=== PATIENT | female | born 1950 | race Caucasian/White ===

== ENCOUNTER 2020-12-03 18:26 | Inpatient (IN) | payer BC, MEDICARE ==
[~2020-12-03] VITALS: Ht 165.1 cm; Wt 59.7 kg
[2020-12-03 18:57] LABS: BASO # 0.1 x10^3/uL (0.0-0.2); BASO % 1 % (0-3); EOS # 0.1 x10^3/uL (0.0-0.7); EOS % 1 % (0-3); HEMATOCRIT 42.8 % (36.0-47.0); HEMOGLOBIN 14.3 g/dL (12.0-15.5); LYMPH # 0.9 x10^3/uL (1.0-4.8); LYMPH % 12 % (24-48); MEAN CORPUSCULAR HEMOGLOBIN 30 pg (25-35); MEAN CORPUSCULAR HGB CONC 34 g/dL (31-37); MEAN CORPUSCULAR VOLUME 90 fL (79-100); MONO # 0.7 x10^3/uL (0.0-1.1); MONO % 9 % (0-9); NEUT # 5.9 x10^3uL (1.8-7.7); NEUT % 77 % (31-73); PLATELET COUNT 284 x10^3/uL (140-400); RED BLOOD COUNT 4.77 x10^6/uL (3.50-5.40); RED CELL DISTRIBUTION WIDTH 14.2 % (11.5-14.5); WHITE BLOOD COUNT 7.7 x10^3/uL (4.0-11.0)
--- NOTE | 2020-12-03 19:12 | PHYS DOC ---
Past History Past Medical History: Anxiety, Dementia, Other Additional Past Medical Histor: Mood disorder, insomnia, incontinence Past Medical History Limited secondary to dementia Past Surgical History: No Surgical History Past Surgical History Limited secondary to dementia Alcohol Use: None Drug Use: None Social History Limited secondary to dementia General Adult EDM: Chief Complaint: MEDICAL CLEARANCE HPI: HPI: 70-year-old female with past medical history of dementia presents via EMS after being accepted to [facility]. Patient reportedly has been more aggressive lately including hitting. Patient presenting to the ER for medical clearance. Patient denies any pain at this time. Denies any complaint. Hx of COVID vaccinatio and appears patient may have previously had COVID-19. History of present illness limited secondary to dementia. Review of Systems: Review of Systems: Review of systems limited secondary to dementia Physical Exam: PE: Constitutional: Well developed, well nourished, no acute distress, non-toxic appearance HENT: Normocephalic, atraumatic Eyes: PERRL, EOMI, conjunctiva normal, no discharge, no nystagmus Neck: Normal range of motion, no tenderness, supple Lungs & Thorax: No respiratory distress, equal chest rise and fall Abdomen: Soft, no tenderness, no guarding/rebound tenderness/distention Skin: Warm, dry, no erythema, no rash Extremities: No tenderness, ROM intact, no edema Neurologic: Alert and oriented X name only, normal motor function, normal sensory function, no focal deficits noted Psychologic: Affect normal, judgment abnormal Current Patient Data: Vital Signs: Vital Signs Date Time Temp Pulse Resp B/P (MAP) Pulse Ox O2 Delivery O2 Flow Rate FiO2 12/03/20 18:30 98.3 83 112/63 (79) 98 EKG: EKG: @1851 NSR at 77bpm, NO ST elevation, QRS 80ms, QT/QTc 354/402ms Radiology/Procedures: Radiology/Procedures: [] Heart Score: C/O Chest Pain: N/A Course & Med Decision Making: Course & Med Decision Making Pertinent Lab studies reviewed. (See chart for details) Patient with past medical history of dementia presents via EMS for medical clearance for admission to [facility]. Physical exam unremarkable. Medical screening labs obtained. EKG stable. Of note: UA was not obtained. Alise NICOLE discussed lack of UA with Nadya NICOLE (charge) in [facility], who reports they will obtain UA on floor. Patient medically cleared for continuation for inpatient psychiatric admission to [facility] unit. Juan Disclaimer: Juan Disclaimer: This electronic medical record was generated, in whole or in part, using a voice recognition dictation system. Departure Departure: Impression: Primary Impression: Medical clearance for psychiatric admission Disposition: ADMITTED INPATIENT ([facility]) Condition: STABLE NIKI OSORIO DO Dec 03, 2020 19:12
[2020-12-03 19:28] LABS: ALBUMIN 3.5 g/dL (3.4-5.0); ALBUMIN/GLOBULIN RATIO 0.8 (1.0-1.7); CALCIUM 9.3 mg/dL (8.5-10.1); GFR 54.7; MAGNESIUM 2.7 mg/dL (1.8-2.4); POTASSIUM 3.8 mmol/L (3.5-5.1); TOTAL BILIRUBIN 0.3 mg/dL (0.2-1.0); TOTAL PROTEIN 7.8 g/dL (6.4-8.2)
--- NOTE | 2020-12-03 19:48 | EKG ---
[address] [address] Test Date: 2020-12-03 Test Time: 18:51:04 Pat Name: KEN ENRIQUEZ Department: Room: Gender: F Rn Transitional Care: : 1950 Requested By: NIKI OSORIO Order Number: [id number] Reading MD: Measurements Intervals [place] Rate: 77 P: 47 WI: 166 QRS: 0 QRSD: 80 T: 64 QT: 354 QTc: 402 Interpretive Statements SINUS RHYTHM LEFTWARD AXIS OTHERWISE NORMAL ECG RI6.02 No previous ECG available for comparison
[2020-12-03 20:41] LABS: VAL ACID 21 mcg/mL (50-100)
[2020-12-03] MEDS ORDERED: LORA10TA68 PO (20:57)
[2020-12-03] MEDS ORDERED: ASPI-889 PO (20:57)
[2020-12-03] MEDS ORDERED: ACET-1874 PO (20:57)
[2020-12-03] MEDS ORDERED: FLUV50TA2 PO (20:57)
[2020-12-03] MEDS ORDERED: MEMA10TA PO (20:57)
[2020-12-03] MEDS ORDERED: MULT-735 PO (20:57)
[2020-12-03] MEDS ORDERED: DONE10TA61 PO (20:57)
[2020-12-03] MEDS ORDERED: TRAZ-120 PO (20:57)
[2020-12-03] MEDS ORDERED: LORA-254 PO ×2 (20:57)
[2020-12-03] MEDS ORDERED: LACT1CAP70 PO (20:57)
[2020-12-03] MEDS ORDERED: MELA1TAB44 PO (20:57)
[2020-12-03] MEDS ORDERED: ERGO500090 PO (20:57)
[2020-12-03] MEDS ORDERED: DIVA125C2 PO (20:57)
--- NOTE | 2020-12-03 22:12 | PDOC ---
Exam Note: Papo Note: Please also refer to the separate dictated note~for this date of service dictated separately.~Patient seen individually. Discussed the patient with Nursing staff reviewed the chart.~Reviewed interim history and current functioning. Reviewed vital signs,~Labs/ Radiology~and current medications noted below. Continue current treatment with the changes noted in the dictated addendum note Assessment: Vital Signs/I&O: Vital Signs Date Time Temp Pulse Resp B/P (MAP) Pulse Ox O2 Delivery O2 Flow Rate FiO2 12/03/20 18:30 98.3 83 112/63 (79) 98 Labs: Laboratory Tests Test 12/03/20 18:36 12/03/20 20:23 White Blood Count 7.7 x10^3/uL (4.0-11.0) Red Blood Count 4.77 x10^6/uL (3.50-5.40) Hemoglobin 14.3 g/dL (12.0-15.5) Hematocrit 42.8 % (36.0-47.0) Mean Corpuscular Volume 90 fL (79-100) Mean Corpuscular Hemoglobin 30 pg (25-35) Mean Corpuscular Hemoglobin Concent 34 g/dL (31-37) Red Cell Distribution Width 14.2 % (11.5-14.5) Platelet Count 284 x10^3/uL (140-400) Neutrophils (%) (Auto) 77 % (31-73) H Lymphocytes (%) (Auto) 12 % (24-48) L Monocytes (%) (Auto) 9 % (0-9) Eosinophils (%) (Auto) 1 % (0-3) Basophils (%) (Auto) 1 % (0-3) Neutrophils # (Auto) 5.9 x10^3uL (1.8-7.7) Lymphocytes # (Auto) 0.9 x10^3/uL (1.0-4.8) L Monocytes # (Auto) 0.7 x10^3/uL (0.0-1.1) Eosinophils # (Auto) 0.1 x10^3/uL (0.0-0.7) Basophils # (Auto) 0.1 x10^3/uL (0.0-0.2) Sodium Level 143 mmol/L (136-145) Potassium Level 3.8 mmol/L (3.5-5.1) Chloride Level 106 mmol/L (98-107) Carbon Dioxide Level 25 mmol/L (21-32) Anion Gap 10 (6-14) Blood Urea Nitrogen 8 mg/dL (7-20) Creatinine 1.0 mg/dL (0.6-1.0) Estimated GFR (Cockcroft-Gault) 54.7 BUN/Creatinine Ratio 8 (6-20) Glucose Level 75 mg/dL (70-99) Calcium Level 9.3 mg/dL (8.5-10.1) Magnesium Level 2.7 mg/dL (1.8-2.4) H Total Bilirubin 0.3 mg/dL (0.2-1.0) Aspartate Amino Transferase (AST) 21 U/L (15-37) Alanine Aminotransferase (ALT) 24 U/L (14-59) Alkaline Phosphatase 153 U/L (46-116) H Creatine Kinase 205 U/L (26-192) H Creatine Kinase MB (Mass) 1.9 ng/mL (0.0-3.6) Creatine Kinase MB Relative Index 0.9 % (0-4) Troponin I Quantitative < 0.017 ng/mL (0-0.055) Total Protein 7.8 g/dL (6.4-8.2) Albumin 3.5 g/dL (3.4-5.0) Albumin/Globulin Ratio 0.8 (1.0-1.7) L Valproic Acid Level 21 mcg/mL (50-100) L Valproic Acid Last Dose Date 12/03/20 Valproic Acid Last Dose Time 0000 Current Medications: Meds: Laboratory Tests Test 12/03/20 18:36 12/03/20 20:23 White Blood Count 7.7 x10^3/uL Red Blood Count 4.77 x10^6/uL Hemoglobin 14.3 g/dL Hematocrit 42.8 % Mean Corpuscular Volume 90 fL Mean Corpuscular Hemoglobin 30 pg Mean Corpuscular Hemoglobin Concent 34 g/dL Red Cell Distribution Width 14.2 % Platelet Count 284 x10^3/uL Neutrophils (%) (Auto) 77 % Lymphocytes (%) (Auto) 12 % Monocytes (%) (Auto) 9 % Eosinophils (%) (Auto) 1 % Basophils (%) (Auto) 1 % Neutrophils # (Auto) 5.9 x10^3uL Lymphocytes # (Auto) 0.9 x10^3/uL Monocytes # (Auto) 0.7 x10^3/uL Eosinophils # (Auto) 0.1 x10^3/uL Basophils # (Auto) 0.1 x10^3/uL Sodium Level 143 mmol/L Potassium Level 3.8 mmol/L Chloride Level 106 mmol/L Carbon Dioxide Level 25 mmol/L Anion Gap 10 Blood Urea Nitrogen 8 mg/dL Creatinine 1.0 mg/dL Estimated GFR (Cockcroft-Gault) 54.7 BUN/Creatinine Ratio 8 Glucose Level 75 mg/dL Calcium Level 9.3 mg/dL Magnesium Level 2.7 mg/dL Total Bilirubin 0.3 mg/dL Aspartate Amino Transf (AST/SGOT) 21 U/L Alanine Aminotransferase (ALT/SGPT) 24 U/L Alkaline Phosphatase 153 U/L Creatine Kinase 205 U/L Creatine Kinase MB (Mass) 1.9 ng/mL Creatine Kinase MB Relative Index 0.9 % Troponin I Quantitative < 0.017 ng/mL Total Protein 7.8 g/dL Albumin 3.5 g/dL Albumin/Globulin Ratio 0.8 Valproic Acid (Depakene) Level 21 mcg/mL Valproic Acid Last Dose Date 12/03/20 Valproic Acid Last Dose Time 0000 I have reviewed the current psychotropics carefully including drug interactions. Risk benefit ratio favors no change other than as noted in my dictated progress note. 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
[2020-12-03] MEDS ORDERED: METHYL SALICYLATE/MENTHOL TOPICAL OINTMENT 57GM TUBE. TP PRN (22:15)
[2020-12-03] MEDS ORDERED: NON FORMULARY ITEM (Acetaminophen Er 650 MG) PO PRN (22:15)
[2020-12-03] MEDS ORDERED: MAGNESIUM HYDROXIDE 2,400 MG/30 ML ORAL.SUSP. PO PRN (22:15)
[2020-12-03] MEDS ORDERED: MAG HYDROX/AL HYDROX/SIMETH 30 ML ORAL.SUSP PO PRN (22:15)
[2020-12-03] MEDS ORDERED: LORazepam 0.5 MG TABLET PO PRN (22:30)
[2020-12-03 22:38] VITALS: BP 116/70
[2020-12-03 22:44] LABS: BILIRUBIN,URINE NEG (NEG); CLARITY,URINE HAZY; COLOR,URINE YELLOW; GLUCOSE,URINE NEG (NEG); NITRITE,URINE NEG (NEG); RBC,URINE OCC /HPF (0-2); UROBILINOGEN,URINE 0.2 mg/dL (0.2 mg/dL); WBC,URINE 20-40 /HPF (0-4)
[2020-12-03 22:45] LABS: BACTERIA,URINE FEW /HPF (0-FEW); SQUAMOUS EPITHELIAL CELL,UR OCC /LPF
[2020-12-03] MEDS ORDERED: CETIRIZINE HCL 10 MG TABLET PO PRN (22:45)
[2020-12-03] MEDS: LORazepam 0.5 MG TABLET PO SCH (22:53)
[2020-12-03] MEDS: traZODone 50 MG TABLET. PO SCH (22:53)
[2020-12-03] MEDS: DONEPEZIL HCL 10 MG TABLET PO SCH (22:54)
[2020-12-03] MEDS: MEMANTINE 10 MG TABLET. PO SCH (22:54)
[2020-12-03] MEDS: MELATONIN 3 MG TABLET PO SCH (22:54)
[2020-12-03] MEDS: DIVALPROEX 125 MG CAP.SPRINK PO SCH (22:54)
[2020-12-04 05:44] VITALS: BP 109/69
[2020-12-04] MEDS: ASPIRIN ENTERIC COATED 81 MG TABLET.DR. PO SCH (08:17)
[2020-12-04] MEDS: LACTOBACILLUS RHAMNOSUS GG 1 CAPSULE. PO SCH (08:17)
[2020-12-04] MEDS: DIVALPROEX 125 MG CAP.SPRINK PO SCH ×2 (08:17→19:53)
[2020-12-04] MEDS: MULTIVITAMIN with MINERAL TABLET. PO SCH (08:17)
[2020-12-04] MEDS: MEMANTINE 10 MG TABLET. PO SCH ×2 (08:17→19:53)
[2020-12-04] MEDS: LORazepam 0.5 MG TABLET PO SCH ×2 (08:17→19:53)
[2020-12-04] MEDS ORDERED: MEMANTINE 10 MG TABLET. PO SCH (09:00)
[2020-12-04 12:08] LABS: THYROXINE 7.9 ug/dL (4.5-12.0)
[2020-12-04 15:42] VITALS: BP 120/60
[2020-12-04 15:43] VITALS: BP 120/60
[2020-12-04] MEDS: traZODone 50 MG TABLET. PO SCH (19:53)
[2020-12-04] MEDS: DONEPEZIL HCL 10 MG TABLET PO SCH (19:53)
[2020-12-04] MEDS: MELATONIN 3 MG TABLET PO SCH (19:54)
[2020-12-04 20:07] LABS: THYROID STIM HORMONE (TSH) 0.952 uIU/mL (0.358-3.740)
--- NOTE | 2020-12-04 21:49 | CONS ---
DATE OF CONSULTATION: 12/04/2020 REASON FOR CONSULTATION: For medical management. HISTORY OF PRESENT ILLNESS: The patient is a 70-year-old female patient, resident at [facility], who was [facility] on account of being combative, hitting unprovoked. She has periods of agitation talks about children, restless, wandering, all this in a background of major neurocognitive disorder, vascular Alzheimer with delusion, depression, behavioral disorder, anxiety disorder and unspecified impulse control disorder. PAST MEDICAL HISTORY: Unremarkable. PAST PSYCHIATRIC HISTORY: Significant for dementia, mood disorder and anxiety with major depressive disorder. ALLERGIES: She has no known drug allergies. MEDICATIONS: She is currently on the following medications. She is on loratadine 10 mg once a day, Aricept 10 mg at bedtime, aspirin 81 mg once a day, acetaminophen 650 mg at bedtime, divalproex sodium 125 mg twice a day, fluvoxamine 75 mg p.o. daily, lorazepam 0.5 mg every 6 hours, lorazepam 0.5 mg twice a day scheduled, Namenda 10 mg twice a day, lactobacillus acidophilus 1 capsule once a day, vitamin D2 of 1250 mcg once a week. Multivitamin 1 tablet once a day and melatonin 4 mg at bedtime. FAMILY HISTORY: Noncontributory. SOCIAL HISTORY: She is a resident at [facility]. PHYSICAL EXAMINATION: GENERAL: On examining her, the patient looked well and was clearly in no apparent respiratory distress. No pallor, jaundice, or cyanosis. No thyromegaly. No jugular venous distention, no lower limb edema. VITAL SIGNS: Her heart rate was 88, blood pressure was 109/69, temperature 97.4, respiratory rate was 18 and oxygen saturation was 96% on room air. HEENT: As per ER physician, examination of the head, eyes, ears, nose, and throat - normocephalic, atraumatic. NECK: Supple. HEART: Normal first and second heart sounds, no gallop, murmur. CHEST: Clear to auscultation. No crepitation or rhonchi. ABDOMEN: Distended, soft, nontender. NEUROLOGIC: She is demented, but without any obvious lateralizing sign. All other cranial nerves intact. She moves extremities without difficulty. She ambulates without assistance or assistive devices. LABORATORY DATA: Showed a white cell count 7700, hemoglobin 14, hematocrit 42, MCV 90 and platelet count 284,000 with normal manual differential. Her D-dimer was 0.59 mg/dL. Her chemistry showed a serum sodium 143, potassium 3.8, chloride 106, bicarbonate 25, anion gap of 10, BUN 8, creatinine 1, estimated GFR was 54 mL per minute. Her glucose was 75, calcium was 9.3, magnesium 2.7. Total bilirubin, AST, ALT, alkaline phosphatase were normal. Total protein was 7.8, albumin was 3.5. Her total T4 and total T3 are both within normal range. Her urinalysis showed the urine was yellow, hazy with a pH of 6.5, specific gravity of 1.015. The urine was negative for protein, glucose, ketones, with trace of blood, negative for nitrite. There was large amount of leukocyte esterase, occasional rbc's, 20-40 wbc's, and very few bacteria. ASSESSMENT AND PLAN: In summary, this is a 70-year-old female patient, resident at [facility]. She was admitted on account of being combative, hitting unprovoked with periods of agitation, talks about children. She is restless and wandering, all this in a background of major neurocognitive disorder. Medically, she seemed to be overall stable. Her vital signs are all within acceptable range as well as her lab work except that she has large amount of leukocyte esterase and 20-40 wbc's, indicating that she probably has urinary tract infection. Her urine was sent for culture and sensitivity, the result of which is still pending at the time of this dictation. She is, however, stable hemodynamically and she is afebrile. I will definitely wait for the culture and sensitivity to start her on IV antibiotic and meanwhile, I will continue with all other medication. I will follow her lab work but still pending at the time of this dictation and make any necessary recommendation. Thank you, Dr. Camacho, for allowing me to participate in the care of this patient. CANDELARIO GARAY: Mei TID: [id number]
--- NOTE | 2020-12-04 22:04 | PDOC ---
Exam Note: Papo Note: Please also refer to the separate dictated note~for this date of service dictated separately.~Patient seen individually. Discussed the patient with Nursing staff reviewed the chart.~Reviewed interim history and current functioning. Reviewed vital signs,~Labs/ Radiology~and current medications noted below. Continue current treatment with the changes noted in the dictated addendum note Assessment: Vital Signs/I&O: Vital Signs Date Time Temp Pulse Resp B/P (MAP) Pulse Ox O2 Delivery O2 Flow Rate FiO2 12/04/20 15:43 97.8 83 20 120/60 (80) 93 12/03/20 22:38 Room Air I & O 12/03/20 12/03/20 12/04/20 15:00 23:00 07:00 Intake Total 60 ml Balance 60 ml Labs: Laboratory Tests Test 12/03/20 22:30 D-Dimer (Yanet) 0.59 mg/L (0.00-0.50) H Vitamin B12 Level 362 pg/mL (247-911) 25-Hydroxy Vitamin D Total 24.4 ng/mL (30-100) L Thyroxine (T4) 7.9 ug/dL (4.5-12.0) Total Triiodothyronine (TT3) 103 ng/dL (71-180) Treponema pallidum Antibody Nonreactive (Nonreactive) Current Medications: Meds: Laboratory Tests Test 12/03/20 22:30 D-Dimer (Yanet) 0.59 mg/L Vitamin B12 Level 362 pg/mL 25-Hydroxy Vitamin D Total 24.4 ng/mL Thyroxine (T4) 7.9 ug/dL Total Triiodothyronine 103 ng/dL Treponema pallidum Antibody Nonreactive Current Medications Medications (Trade) Dose Ordered Sig/Brandy Route PRN Reason Start Time Stop Time Status Last Admin Dose Admin Acetaminophen (Tylenol) 650 mg PRN Q6HRS PRN PO MILD PAIN / TEMP > 100.3'F 12/03/20 22:15 Multi-Ingredient Ointment (Analgesic [place]) 1 william PRN QID PRN TP MUSCLE PAIN 12/03/20 22:15 Al Hydroxide/Mg Hydroxide (Mylanta Plus Xs) 15 ml PRN AFTMEALHC PRN PO DYSPEPSIA 12/03/20 22:15 Magnesium Hydroxide (Milk Of Magnesia) 2,400 mg PRN QHS PRN PO CONSTIPATION 12/03/20 22:15 Aspirin (Aspirin Enteric Coated) 81 mg DAILY PO 12/04/20 09:00 12/04/20 08:17 Divalproex Sodium (Depakote Sprinkles) 125 mg BID PO 12/03/20 23:00 12/04/20 19:53 Donepezil HCl (Aricept) 10 mg HS PO 12/03/20 23:00 12/04/20 19:53 Lorazepam (Ativan) 0.5 mg BID PO 12/03/20 23:00 12/04/20 19:53 Lorazepam (Ativan) 0.5 mg PRN Q6HRS PRN PO ANXIETY / AGITATION 12/03/20 22:30 Memantine (Namenda) 10 mg BID PO 12/03/20 23:00 12/04/20 19:53 Memantine (Namenda) 10 mg BID PO 12/04/20 09:00 UNV Trazodone HCl (Desyrel) 50 mg HS PO 12/03/20 23:00 12/04/20 19:53 Non-Formulary Medication (Acetaminophen Er ) 650 mg HS PRN PO FEVER/PAIN 12/03/20 22:15 UNV Vitamin D (Vitamin D3) 50,000 unit WEEKLY PO 12/10/20 09:00 Fluvoxamine Maleate (Luvox) 75 mg DAILY PO 12/04/20 09:00 12/04/20 08:17 Lactobacillus Rhamnosus (Culturelle) 1 cap DAILY PO 12/04/20 09:00 12/04/20 08:17 Cetirizine HCl (ZyrTEC) 10 mg PRN DAILY PRN PO ALLERGIES 12/03/20 22:45 Melatonin (Melatonin) 4.5 mg HS PO 12/03/20 23:00 12/04/20 19:54 Multivitamins/ Calcium (Thera-M Plus) 1 tab DAILY PO 12/04/20 09:00 12/04/20 08:17 Current Medications Medications (Trade) Dose Ordered Sig/Brandy Route PRN Reason Start Time Stop Time Status Last Admin Dose Admin Aspirin (Aspirin Enteric Coated) 81 mg DAILY PO 12/04/20 09:00 12/04/20 08:17 Divalproex Sodium (Depakote Sprinkles) 125 mg BID PO 12/03/20 23:00 12/04/20 19:53 Donepezil HCl (Aricept) 10 mg HS PO 12/03/20 23:00 12/04/20 19:53 Lorazepam (Ativan) 0.5 mg BID PO 12/03/20 23:00 12/04/20 19:53 Memantine (Namenda) 10 mg BID PO 12/03/20 23:00 12/04/20 19:53 Trazodone HCl (Desyrel) 50 mg HS PO 12/03/20 23:00 12/04/20 19:53 Fluvoxamine Maleate (Luvox) 75 mg DAILY PO 12/04/20 09:00 12/04/20 08:17 Lactobacillus Rhamnosus (Culturelle) 1 cap DAILY PO 12/04/20 09:00 12/04/20 08:17 Melatonin (Melatonin) 4.5 mg HS PO 12/03/20 23:00 12/04/20 19:54 Multivitamins/ Calcium (Thera-M Plus) 1 tab DAILY PO 12/04/20 09:00 12/04/20 08:17 I have reviewed the current psychotropics carefully including drug interactions. Risk benefit ratio favors no change other than as noted in my dictated progress note. Diagnosis: Problems: (1) Dementia, vascular, with depression (2) Dementia, vascular, with delusions (3) Dementia in Alzheimer's disease with depression (4) Dementia in Alzheimer's disease with delusions (5) Major neurocognitive disorder (6) Dementia in Nida's disease with behavioral disturbance DIONICIO RENEE MD Dec 04, 2020 22:03
[2020-12-05 00:07] LABS: HEMOGLOBIN A1C 5.3 % (4.8-5.6)
[2020-12-05 06:28] VITALS: BP 108/75
[2020-12-05] MEDS: MULTIVITAMIN with MINERAL TABLET. PO SCH (09:41)
[2020-12-05] MEDS: ASPIRIN ENTERIC COATED 81 MG TABLET.DR. PO SCH (09:41)
[2020-12-05] MEDS: DIVALPROEX 125 MG CAP.SPRINK PO SCH ×4 (09:41→19:52)
[2020-12-05] MEDS: LACTOBACILLUS RHAMNOSUS GG 1 CAPSULE. PO SCH (09:41)
[2020-12-05] MEDS: LORazepam 0.5 MG TABLET PO SCH ×2 (09:42→19:51)
[2020-12-05] MEDS: MEMANTINE 10 MG TABLET. PO SCH ×2 (09:42→19:50)
[2020-12-05 16:05] VITALS: BP 101/62
[2020-12-05] MEDS: MELATONIN 3 MG TABLET PO SCH (19:50)
[2020-12-05] MEDS: DONEPEZIL HCL 10 MG TABLET PO SCH (19:52)
[2020-12-05] MEDS: traZODone 50 MG TABLET. PO SCH (19:52)
--- NOTE | 2020-12-05 22:05 | PDOC ---
Exam Note: Papo Note: Please also refer to the separate dictated note~for this date of service dictated separately.~Patient seen individually. Discussed the patient with Nursing staff reviewed the chart.~Reviewed interim history and current functioning. Reviewed vital signs,~Labs/ Radiology~and current medications noted below. Continue current treatment with the changes noted in the dictated addendum note Assessment: Vital Signs/I&O: Vital Signs Date Time Temp Pulse Resp B/P (MAP) Pulse Ox O2 Delivery O2 Flow Rate FiO2 12/05/20 16:05 98.0 72 16 101/62 (75) 92 Room Air I & O 12/04/20 12/04/20 12/05/20 15:00 23:00 07:00 Intake Total 360 ml 360 ml Balance 360 ml 360 ml Current Medications: Meds: Current Medications Medications (Trade) Dose Ordered Sig/Brandy Route PRN Reason Start Time Stop Time Status Last Admin Dose Admin Acetaminophen (Tylenol) 650 mg PRN Q6HRS PRN PO MILD PAIN / TEMP > 100.3'F 12/03/20 22:15 Multi-Ingredient Ointment (Analgesic [place]) 1 william PRN QID PRN TP MUSCLE PAIN 12/03/20 22:15 Al Hydroxide/Mg Hydroxide (Mylanta Plus Xs) 15 ml PRN AFTMEALHC PRN PO DYSPEPSIA 12/03/20 22:15 Magnesium Hydroxide (Milk Of Magnesia) 2,400 mg PRN QHS PRN PO CONSTIPATION 12/03/20 22:15 Aspirin (Aspirin Enteric Coated) 81 mg DAILY PO 12/04/20 09:00 12/05/20 09:41 Divalproex Sodium (Depakote Sprinkles) 125 mg BID PO 12/03/20 23:00 12/05/20 13:49 DC 12/05/20 09:41 Donepezil HCl (Aricept) 10 mg HS PO 12/03/20 23:00 12/05/20 19:52 Lorazepam (Ativan) 0.5 mg BID PO 12/03/20 23:00 12/05/20 19:51 Lorazepam (Ativan) 0.5 mg PRN Q6HRS PRN PO ANXIETY / AGITATION 12/03/20 22:30 Memantine (Namenda) 10 mg BID PO 12/03/20 23:00 12/05/20 19:50 Memantine (Namenda) 10 mg BID PO 12/04/20 09:00 UNV Trazodone HCl (Desyrel) 50 mg HS PO 12/03/20 23:00 12/05/20 19:52 Non-Formulary Medication (Acetaminophen Er ) 650 mg HS PRN PO FEVER/PAIN 12/03/20 22:15 UNV Vitamin D (Vitamin D3) 50,000 unit WEEKLY PO 12/10/20 09:00 Fluvoxamine Maleate (Luvox) 75 mg DAILY PO 12/04/20 09:00 12/05/20 18:55 DC 12/05/20 09:41 Lactobacillus Rhamnosus (Culturelle) 1 cap DAILY PO 12/04/20 09:00 12/05/20 09:41 Cetirizine HCl (ZyrTEC) 10 mg PRN DAILY PRN PO ALLERGIES 12/03/20 22:45 Melatonin (Melatonin) 4.5 mg HS PO 12/03/20 23:00 12/05/20 19:50 Multivitamins/ Calcium (Thera-M Plus) 1 tab DAILY PO 12/04/20 09:00 12/05/20 09:41 Divalproex Sodium (Depakote Sprinkles) 125 mg 0900,1300,1700,2100 PO 12/05/20 14:00 12/05/20 19:52 Fluvoxamine Maleate (Luvox) 100 mg DAILY PO 12/06/20 09:00 Current Medications Medications (Trade) Dose Ordered Sig/Brandy Route PRN Reason Start Time Stop Time Status Last Admin Dose Admin Divalproex Sodium (Depakote Sprinkles) 125 mg 0900,1300,1700,2100 PO 12/05/20 14:00 12/05/20 19:52 I have reviewed the current psychotropics carefully including drug interactions. Risk benefit ratio favors no change other than as noted in my dictated progress note. Diagnosis: Problems: (1) Dementia, vascular, with depression (2) Dementia, vascular, with delusions (3) Dementia in Alzheimer's disease with depression (4) Dementia in Alzheimer's disease with delusions (5) Major neurocognitive disorder (6) Dementia in Nida's disease with behavioral disturbance DIONICIO RENEE MD Dec 05, 2020 22:05
--- NOTE | 2020-12-05 22:23 | HP ---
ADMIT DATE: 12/04/2020 PSYCHIATRIC ADMISSION HISTORY/EVALUATION This is a late entry date of service, 12/04/2020 covers the elements not covered in my initial note of 12/04/2020. HISTORY OF PRESENT ILLNESS: I met with the patient in the evening of 12/04/2020 for this evaluation. I previously discussed the patient with Anamika Pelaez RN program director/air personality on the memory care unit at [facility] last week after the patient had become extremely aggressive, disruptive, threatening, and unmanageable. We had attempted changes in her psychotropics to help control her behaviors. I was called again on 12/03/2020 by Yvette, clinical social work therapist at [facility] in the presence of the electrical engineering director and administrative. The patient had become aggressive once again, was combative, hitting other patients unprovoked. She is talking about children, delusional, restless, and wandering. Behaviors were deemed dangerous, unmanageable, they were unable to maintain her there and referred for inpatient psychiatric stabilization. Also, discussed with Leonela Webb, multimedia services coordinator at [facility] and with nursing staff. IDENTIFYING DATA: The patient is a 70-year-old female who was recently admitted to [facility], as above. CHIEF COMPLAINT: "No". The patient is just oriented to herself. HISTORY OF PRESENT ILLNESS: The patient has a history of dementia, Alzheimer's, vascular type. She was recently admitted to the above facility getting extremely psychotic, agitated, disruptive, dangerous in her behaviors, and had failed outpatient psychiatric interventions. She is having marked insomnia and delusions. PAST PSYCHIATRIC HISTORY: As above. MEDICAL HISTORY: Positive for possible UTI. DRUG ALLERGIES: Negative. CODE STATUS: Full code. DIET: Regular finger foods. Ambulates independently. CURRENT PSYCHOTROPICS: Aricept 10 mg at bedtime, melatonin 4 mg at bedtime, Namenda 10 mg b.i.d., trazodone 50 mg at bedtime, Ativan p.r.n. and 0.5 mg b.i.d., Luvox 75 mg daily, and Depakote 125 mg b.i.d. initiated at the senior living. FAMILY HISTORY: Noncontributory. SOCIAL HISTORY: No history of alcohol, drug abuse, physical, sexual, or elder abuse. She is not known to be a perpetrator. REACTION TO HOSPITALIZATION: The patient is oblivious of this. ASSETS: Supportive family, stable living at the senior living. REVIEW OF SYSTEMS: No CV, , pulmonary, eye, ENT system symptoms on review. Reliability poor. MENTAL STATUS EXAM: Oriented to herself. Insight, judgment, recent and remote memory, attention, concentration, fund of knowledge poor consistent with her diagnosis. IMPRESSION: Major neurocognitive disorder, Alzheimer, vascular with delusion, depression, behavioral disturbance, anxiety disorder, unspecified; impulse control disorder, unspecified, rule out urinary tract infection. Rest unchanged from admission. PLAN: Admit to geropsychiatry unit at [facility]. I will see the patient daily individually from a psychiatric standpoint. Medical followup with Dr. Bhatt/Dr. Quinones. Continue the patient on her current psychotropics. Check her valproic acid level and then adjust Depakote to reach therapeutic level. May consider adjusting Luvox and consider other psychotropics depending on her response to her earlier interventions. ESTIMATED LENGTH OF STAY: 10-12 days. DISPOSITION: Plans back to senior living when stable. AGUILAR DR: Luan TID: [id number]
[2020-12-06 06:02] VITALS: BP 96/61
[2020-12-06] MEDS: LORazepam 0.5 MG TABLET PO SCH ×2 (08:36→19:52)
[2020-12-06] MEDS: MEMANTINE 10 MG TABLET. PO SCH ×2 (08:36→19:52)
[2020-12-06] MEDS: LACTOBACILLUS RHAMNOSUS GG 1 CAPSULE. PO SCH (08:36)
[2020-12-06] MEDS: ASPIRIN ENTERIC COATED 81 MG TABLET.DR. PO SCH (08:36)
[2020-12-06] MEDS: MULTIVITAMIN with MINERAL TABLET. PO SCH (08:36)
[2020-12-06] MEDS: DIVALPROEX 125 MG CAP.SPRINK PO SCH ×4 (08:36→19:52)
--- NOTE | 2020-12-06 08:57 | PDOC ---
Exam Note: Papo Note: This note is a late entry for 12/05/2020 covers elements not covered in my initial note. Subjective: The patient was reviewed in the morning of 12/05/2020 for a treatment team meeting with Anu Gerber (social worker school), Dasha, activity therapy and Wyatt NICOLE, discussed and reviewed the chart. The patient slept 7-3/4 hours previous night. The patient has been confused, restless, anxious, intermittently agitated. She takes her medications crushed. Sleeping average 5 hours. She has been agitated, impulsive. Review of Systems: No CV, , pulmonary, eye, ENT system symptoms on review. Reliability poor. Mental Status Exam: The patient is oriented to herself. Insight and judgment, recent and remote memory, attention and concentration is poor consistent with her diagnoses. Laboratory Data: Reviewed. Impression: Major neurocognitive disorder Alzheimer vascular with delusion, depression, behavioral disturbance. Anxiety disorder unspecified. Impulse control disorder unspecified. Plan: Continue current psychotropics. She is quite obsessive. We will increase Luvox from 75 mg daily to 100 mg daily. Valproic acid level is 15 on Depakote Sprinkle 125 mg b.i.d. We will increase this to 125 mg 4 times a day. Check CBC, CMP, valproic acid level in 3 days. Maintain rest of the psychotropics unchanged. Assessment: Vital Signs/I&O: Vital Signs Date Time Temp Pulse Resp B/P (MAP) Pulse Ox O2 Delivery O2 Flow Rate FiO2 12/06/20 06:02 97.6 84 14 96/61 (73) 95 Room Air I & O 12/05/20 12/05/20 12/06/20 15:00 23:00 07:00 Intake Total 120 ml 480 ml Balance 120 ml 480 ml Current Medications: Meds: Current Medications Medications (Trade) Dose Ordered Sig/Brandy Route PRN Reason Start Time Stop Time Status Last Admin Dose Admin Acetaminophen (Tylenol) 650 mg PRN Q6HRS PRN PO MILD PAIN / TEMP > 100.3'F 12/03/20 22:15 Multi-Ingredient Ointment (Analgesic [place]) 1 william PRN QID PRN TP MUSCLE PAIN 12/03/20 22:15 Al Hydroxide/Mg Hydroxide (Mylanta Plus Xs) 15 ml PRN AFTMEALHC PRN PO DYSPEPSIA 12/03/20 22:15 Magnesium Hydroxide (Milk Of Magnesia) 2,400 mg PRN QHS PRN PO CONSTIPATION 12/03/20 22:15 Aspirin (Aspirin Enteric Coated) 81 mg DAILY PO 12/04/20 09:00 12/06/20 08:36 Divalproex Sodium (Depakote Sprinkles) 125 mg BID PO 12/03/20 23:00 12/05/20 13:49 DC 12/05/20 09:41 Donepezil HCl (Aricept) 10 mg HS PO 12/03/20 23:00 12/05/20 19:52 Lorazepam (Ativan) 0.5 mg BID PO 12/03/20 23:00 12/06/20 08:36 Lorazepam (Ativan) 0.5 mg PRN Q6HRS PRN PO ANXIETY / AGITATION 12/03/20 22:30 Memantine (Namenda) 10 mg BID PO 12/03/20 23:00 12/06/20 08:36 Memantine (Namenda) 10 mg BID PO 12/04/20 09:00 UNV Trazodone HCl (Desyrel) 50 mg HS PO 12/03/20 23:00 12/05/20 19:52 Non-Formulary Medication (Acetaminophen Er ) 650 mg HS PRN PO FEVER/PAIN 12/03/20 22:15 UNV Vitamin D (Vitamin D3) 50,000 unit WEEKLY PO 12/10/20 09:00 Fluvoxamine Maleate (Luvox) 75 mg DAILY PO 12/04/20 09:00 12/05/20 18:55 DC 12/05/20 09:41 Lactobacillus Rhamnosus (Culturelle) 1 cap DAILY PO 12/04/20 09:00 12/06/20 08:36 Cetirizine HCl (ZyrTEC) 10 mg PRN DAILY PRN PO ALLERGIES 12/03/20 22:45 Melatonin (Melatonin) 4.5 mg HS PO 12/03/20 23:00 12/05/20 19:50 Multivitamins/ Calcium (Thera-M Plus) 1 tab DAILY PO 12/04/20 09:00 12/06/20 08:36 Divalproex Sodium (Depakote Sprinkles) 125 mg 0900,1300,1700,2100 PO 12/05/20 14:00 12/06/20 08:36 Fluvoxamine Maleate (Luvox) 100 mg DAILY PO 12/06/20 09:00 12/06/20 08:36 Current Medications Medications (Trade) Dose Ordered Sig/Brandy Route PRN Reason Start Time Stop Time Status Last Admin Dose Admin Divalproex Sodium (Depakote Sprinkles) 125 mg 0900,1300,1700,2100 PO 12/05/20 14:00 12/06/20 08:36 Fluvoxamine Maleate (Luvox) 100 mg DAILY PO 12/06/20 09:00 12/06/20 08:36 I have reviewed the current psychotropics carefully including drug interactions. Risk benefit ratio favors no change other than as noted in my dictated progress note. Diagnosis: Problems: (1) Dementia, vascular, with depression (2) Dementia, vascular, with delusions (3) Dementia in Alzheimer's disease with depression (4) Dementia in Alzheimer's disease with delusions (5) Major neurocognitive disorder (6) Dementia in [place]'s disease with behavioral disturbance (7) Anxiety disorder, unspecified (8) Impulse control disorder, unspecified DIONICIO RENEE MD Dec 06, 2020 08:57
[2020-12-06 15:34] VITALS: BP 98/60
[2020-12-06] MEDS: DONEPEZIL HCL 10 MG TABLET PO SCH (19:52)
[2020-12-06] MEDS: MELATONIN 3 MG TABLET PO SCH (19:52)
[2020-12-06] MEDS: traZODone 50 MG TABLET. PO SCH (19:52)
--- NOTE | 2020-12-06 22:04 | PDOC ---
Exam Note: Papo Note: Please also refer to the separate dictated note~for this date of service dictated separately.~Patient seen individually. Discussed the patient with Nursing staff reviewed the chart.~Reviewed interim history and current functioning. Reviewed vital signs,~Labs/ Radiology~and current medications noted below. Continue current treatment with the changes noted in the dictated addendum note Assessment: Vital Signs/I&O: Vital Signs Date Time Temp Pulse Resp B/P (MAP) Pulse Ox O2 Delivery O2 Flow Rate FiO2 12/06/20 15:34 97.2 72 17 98/60 (73) 97 Room Air I & O 12/05/20 12/05/20 12/06/20 15:00 23:00 07:00 Intake Total 120 ml 480 ml Balance 120 ml 480 ml Current Medications: Meds: Current Medications Medications (Trade) Dose Ordered Sig/Brandy Route PRN Reason Start Time Stop Time Status Last Admin Dose Admin Acetaminophen (Tylenol) 650 mg PRN Q6HRS PRN PO MILD PAIN / TEMP > 100.3'F 12/03/20 22:15 Multi-Ingredient Ointment (Analgesic [place]) 1 william PRN QID PRN TP MUSCLE PAIN 12/03/20 22:15 Al Hydroxide/Mg Hydroxide (Mylanta Plus Xs) 15 ml PRN AFTMEALHC PRN PO DYSPEPSIA 12/03/20 22:15 Magnesium Hydroxide (Milk Of Magnesia) 2,400 mg PRN QHS PRN PO CONSTIPATION 12/03/20 22:15 Aspirin (Aspirin Enteric Coated) 81 mg DAILY PO 12/04/20 09:00 12/06/20 08:36 Divalproex Sodium (Depakote Sprinkles) 125 mg BID PO 12/03/20 23:00 12/05/20 13:49 DC 12/05/20 09:41 Donepezil HCl (Aricept) 10 mg HS PO 12/03/20 23:00 12/06/20 19:52 Lorazepam (Ativan) 0.5 mg BID PO 12/03/20 23:00 12/06/20 19:52 Lorazepam (Ativan) 0.5 mg PRN Q6HRS PRN PO ANXIETY / AGITATION 12/03/20 22:30 12/06/20 17:03 Memantine (Namenda) 10 mg BID PO 12/03/20 23:00 12/06/20 19:52 Memantine (Namenda) 10 mg BID PO 12/04/20 09:00 UNV Trazodone HCl (Desyrel) 50 mg HS PO 12/03/20 23:00 12/06/20 19:52 Non-Formulary Medication (Acetaminophen Er ) 650 mg HS PRN PO FEVER/PAIN 12/03/20 22:15 UNV Vitamin D (Vitamin D3) 50,000 unit WEEKLY PO 12/10/20 09:00 Fluvoxamine Maleate (Luvox) 75 mg DAILY PO 12/04/20 09:00 12/05/20 18:55 DC 12/05/20 09:41 Lactobacillus Rhamnosus (Culturelle) 1 cap DAILY PO 12/04/20 09:00 12/06/20 08:36 Cetirizine HCl (ZyrTEC) 10 mg PRN DAILY PRN PO ALLERGIES 12/03/20 22:45 Melatonin (Melatonin) 4.5 mg HS PO 12/03/20 23:00 12/06/20 19:52 Multivitamins/ Calcium (Thera-M Plus) 1 tab DAILY PO 12/04/20 09:00 12/06/20 08:36 Divalproex Sodium (Depakote Sprinkles) 125 mg 0900,1300,1700,2100 PO 12/05/20 14:00 12/06/20 19:52 Fluvoxamine Maleate (Luvox) 100 mg DAILY PO 12/06/20 09:00 12/06/20 08:36 Current Medications Medications (Trade) Dose Ordered Sig/Brandy Route PRN Reason Start Time Stop Time Status Last Admin Dose Admin Fluvoxamine Maleate (Luvox) 100 mg DAILY PO 12/06/20 09:00 12/06/20 08:36 I have reviewed the current psychotropics carefully including drug interactions. Risk benefit ratio favors no change other than as noted in my dictated progress note. Diagnosis: Problems: (1) Dementia, vascular, with depression (2) Dementia, vascular, with delusions (3) Dementia in Alzheimer's disease with depression (4) Dementia in Alzheimer's disease with delusions (5) Major neurocognitive disorder (6) Dementia in [place]'s disease with behavioral disturbance (7) Impulse control disorder, unspecified (8) Anxiety disorder, unspecified DIONICIO RENEE MD Dec 06, 2020 22:04
[2020-12-07 05:26] VITALS: BP 111/76
[2020-12-07] MEDS: DIVALPROEX 125 MG CAP.SPRINK PO SCH ×4 (08:27→19:57)
[2020-12-07] MEDS: MULTIVITAMIN with MINERAL TABLET. PO SCH (08:27)
[2020-12-07] MEDS: LACTOBACILLUS RHAMNOSUS GG 1 CAPSULE. PO SCH (08:27)
[2020-12-07] MEDS: LORazepam 0.5 MG TABLET PO SCH ×2 (08:27→19:58)
[2020-12-07] MEDS: ASPIRIN ENTERIC COATED 81 MG TABLET.DR. PO SCH (08:27)
[2020-12-07] MEDS: MEMANTINE 10 MG TABLET. PO SCH ×2 (08:27→19:57)
[2020-12-07 15:57] VITALS: BP 110/71
[2020-12-07] MEDS: DONEPEZIL HCL 10 MG TABLET PO SCH (19:57)
[2020-12-07] MEDS: traZODone 50 MG TABLET. PO SCH (19:57)
[2020-12-07] MEDS: MELATONIN 3 MG TABLET PO SCH (19:58)
--- NOTE | 2020-12-07 22:06 | PDOC ---
Exam Note: Papo Note: Please also refer to the separate dictated note~for this date of service dictated separately.~Patient seen individually. Discussed the patient with Nursing staff reviewed the chart.~Reviewed interim history and current functioning. Reviewed vital signs,~Labs/ Radiology~and current medications noted below. Continue current treatment with the changes noted in the dictated addendum note Assessment: Vital Signs/I&O: Vital Signs Date Time Temp Pulse Resp B/P (MAP) Pulse Ox O2 Delivery O2 Flow Rate FiO2 12/07/20 15:57 98.0 74 18 110/71 (84) 98 Room Air I & O 12/06/20 12/06/20 12/07/20 15:00 23:00 07:00 Intake Total 720 ml 360 ml Balance 720 ml 360 ml Current Medications: Meds: Current Medications Medications (Trade) Dose Ordered Sig/Brandy Route PRN Reason Start Time Stop Time Status Last Admin Dose Admin Acetaminophen (Tylenol) 650 mg PRN Q6HRS PRN PO MILD PAIN / TEMP > 100.3'F 12/03/20 22:15 Multi-Ingredient Ointment (Analgesic [place]) 1 william PRN QID PRN TP MUSCLE PAIN 12/03/20 22:15 Al Hydroxide/Mg Hydroxide (Mylanta Plus Xs) 15 ml PRN AFTMEALHC PRN PO DYSPEPSIA 12/03/20 22:15 Magnesium Hydroxide (Milk Of Magnesia) 2,400 mg PRN QHS PRN PO CONSTIPATION 12/03/20 22:15 Aspirin (Aspirin Enteric Coated) 81 mg DAILY PO 12/04/20 09:00 12/07/20 08:27 Divalproex Sodium (Depakote Sprinkles) 125 mg BID PO 12/03/20 23:00 12/05/20 13:49 DC 12/05/20 09:41 Donepezil HCl (Aricept) 10 mg HS PO 12/03/20 23:00 12/07/20 19:57 Lorazepam (Ativan) 0.5 mg BID PO 12/03/20 23:00 12/07/20 16:20 DC 12/07/20 08:27 Lorazepam (Ativan) 0.5 mg PRN Q6HRS PRN PO ANXIETY / AGITATION 12/03/20 22:30 12/06/20 17:03 Memantine (Namenda) 10 mg BID PO 12/03/20 23:00 12/07/20 19:57 Memantine (Namenda) 10 mg BID PO 12/04/20 09:00 UNV Trazodone HCl (Desyrel) 50 mg HS PO 12/03/20 23:00 12/07/20 19:57 Non-Formulary Medication (Acetaminophen Er ) 650 mg HS PRN PO FEVER/PAIN 12/03/20 22:15 UNV Vitamin D (Vitamin D3) 50,000 unit WEEKLY PO 12/10/20 09:00 Fluvoxamine Maleate (Luvox) 75 mg DAILY PO 12/04/20 09:00 12/05/20 18:55 DC 12/05/20 09:41 Lactobacillus Rhamnosus (Culturelle) 1 cap DAILY PO 12/04/20 09:00 12/07/20 08:27 Cetirizine HCl (ZyrTEC) 10 mg PRN DAILY PRN PO ALLERGIES 12/03/20 22:45 Melatonin (Melatonin) 4.5 mg HS PO 12/03/20 23:00 12/07/20 19:58 Multivitamins/ Calcium (Thera-M Plus) 1 tab DAILY PO 12/04/20 09:00 12/07/20 08:27 Divalproex Sodium (Depakote Sprinkles) 125 mg 0900,1300,1700,2100 PO 12/05/20 14:00 12/07/20 19:57 Fluvoxamine Maleate (Luvox) 100 mg DAILY PO 12/06/20 09:00 12/07/20 08:27 Lorazepam (Ativan) 0.25 mg BID PO 12/07/20 21:00 12/11/20 23:50 12/07/20 19:58 Lorazepam (Ativan) 0.25 mg DAILY PO 12/12/20 09:00 12/16/20 16:00 Current Medications Medications (Trade) Dose Ordered Sig/Brandy Route PRN Reason Start Time Stop Time Status Last Admin Dose Admin Lorazepam (Ativan) 0.25 mg BID PO 12/07/20 21:00 12/11/20 23:50 12/07/20 19:58 I have reviewed the current psychotropics carefully including drug interactions. Risk benefit ratio favors no change other than as noted in my dictated progress note. Diagnosis: Problems: (1) Dementia, vascular, with depression (2) Dementia, vascular, with delusions (3) Dementia in Alzheimer's disease with depression (4) Dementia in Alzheimer's disease with delusions (5) Major neurocognitive disorder (6) Dementia in [place]'s disease with behavioral disturbance (7) Impulse control disorder, unspecified (8) Anxiety disorder, unspecified DIONICIO RENEE MD Dec 07, 2020 22:06
[2020-12-08 05:47] VITALS: BP 93/56
[2020-12-08 07:53] LABS: BASO % 1 % (0-3); EOS # 0.1 x10^3/uL (0.0-0.7); EOS % 2 % (0-3); HEMATOCRIT 40.4 % (36.0-47.0); HEMOGLOBIN 13.5 g/dL (12.0-15.5); LYMPH # 0.7 x10^3/uL (1.0-4.8); LYMPH % 11 % (24-48); MEAN CORPUSCULAR HEMOGLOBIN 30 pg (25-35); MEAN CORPUSCULAR HGB CONC 34 g/dL (31-37); MEAN CORPUSCULAR VOLUME 90 fL (79-100); MONO # 0.4 x10^3/uL (0.0-1.1); MONO % 7 % (0-9); NEUT # 4.8 x10^3uL (1.8-7.7); NEUT % 80 % (31-73); PLATELET COUNT 199 x10^3/uL (140-400); RED CELL DISTRIBUTION WIDTH 14.6 % (11.5-14.5)
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
[2020-12-08] MEDS: LORazepam 0.5 MG TABLET PO SCH ×2 (11:00→20:34)
[2020-12-08] MEDS: MULTIVITAMIN with MINERAL TABLET. PO SCH (11:00)
[2020-12-08] MEDS: LACTOBACILLUS RHAMNOSUS GG 1 CAPSULE. PO SCH (11:00)
[2020-12-08] MEDS: DIVALPROEX 125 MG CAP.SPRINK PO SCH ×4 (11:00→20:31)
[2020-12-08] MEDS: ASPIRIN ENTERIC COATED 81 MG TABLET.DR. PO SCH (11:00)
[2020-12-08] MEDS: MEMANTINE 10 MG TABLET. PO SCH ×2 (11:01→20:34)
[2020-12-08 13:09] LABS: ALBUMIN 3.1 g/dL (3.4-5.0); ALBUMIN/GLOBULIN RATIO 0.8 (1.0-1.7); ALK PHOS 139 U/L (46-116); ALT (SGPT) 25 U/L (14-59); ANION GAP 10 (6-14); AST (SGOT) 20 U/L (15-37); BLOOD UREA NITROGEN 13 mg/dL (7-20); BUN/CREATININE RATIO 13 (6-20); CALCIUM 8.8 mg/dL (8.5-10.1); CARBON DIOXIDE 27 mmol/L (21-32); CHLORIDE 109 mmol/L (98-107); GFR 54.7; GLUCOSE 76 mg/dL (70-99); POTASSIUM 3.8 mmol/L (3.5-5.1); SODIUM 146 mmol/L (136-145); TOTAL BILIRUBIN 0.4 mg/dL (0.2-1.0); TOTAL PROTEIN 6.9 g/dL (6.4-8.2); VAL ACID 66 mcg/mL (50-100)
[2020-12-08 15:21] VITALS: BP 99/59
--- NOTE | 2020-12-08 17:40 | RAD ---
Exam: Abdomen one view INDICATION: Back pain TECHNIQUE: Supine view the abdomen Comparisons: None FINDINGS: Air and stool are noted throughout the colon to level the rectum in a nonobstructive bowel gas patter n. No suspicious masses or calcifications. Visualized osseous structures are unremarkable. IMPRESSION: Nonobstructive bowel gas pattern. Electronically signed by: Calos Roberson MD (12/08/2020 5:38 PM) RICK
[2020-12-08] MEDS ORDERED: traZODone 50 MG TABLET. PO PRN (18:30)
[2020-12-08] MEDS: MELATONIN 3 MG TABLET PO SCH (20:30)
[2020-12-08] MEDS: DONEPEZIL HCL 10 MG TABLET PO SCH (20:31)
--- NOTE | 2020-12-08 22:06 | PDOC ---
Exam Note: Papo Note: Please also refer to the separate dictated note~for this date of service dictated separately.~Patient seen individually. Discussed the patient with Nursing staff reviewed the chart.~Reviewed interim history and current functioning. Reviewed vital signs,~Labs/ Radiology~and current medications noted below. Continue current treatment with the changes noted in the dictated addendum note Assessment: Vital Signs/I&O: Vital Signs Date Time Temp Pulse Resp B/P (MAP) Pulse Ox O2 Delivery O2 Flow Rate FiO2 12/08/20 15:21 97.9 89 18 99/59 (72) 98 12/08/20 05:47 Room Air I & O 12/07/20 12/07/20 12/08/20 15:00 23:00 07:00 Intake Total 480 ml 600 ml Balance 480 ml 600 ml Labs: Laboratory Tests Test 12/08/20 06:40 White Blood Count 6.0 x10^3/uL (4.0-11.0) Red Blood Count 4.50 x10^6/uL (3.50-5.40) Hemoglobin 13.5 g/dL (12.0-15.5) Hematocrit 40.4 % (36.0-47.0) Mean Corpuscular Volume 90 fL (79-100) Mean Corpuscular Hemoglobin 30 pg (25-35) Mean Corpuscular Hemoglobin Concent 34 g/dL (31-37) Red Cell Distribution Width 14.6 % (11.5-14.5) H Platelet Count 199 x10^3/uL (140-400) Neutrophils (%) (Auto) 80 % (31-73) H Lymphocytes (%) (Auto) 11 % (24-48) L Monocytes (%) (Auto) 7 % (0-9) Eosinophils (%) (Auto) 2 % (0-3) Basophils (%) (Auto) 1 % (0-3) Neutrophils # (Auto) 4.8 x10^3uL (1.8-7.7) Lymphocytes # (Auto) 0.7 x10^3/uL (1.0-4.8) L Monocytes # (Auto) 0.4 x10^3/uL (0.0-1.1) Eosinophils # (Auto) 0.1 x10^3/uL (0.0-0.7) Basophils # (Auto) 0.0 x10^3/uL (0.0-0.2) Sodium Level 146 mmol/L (136-145) H Potassium Level 3.8 mmol/L (3.5-5.1) Chloride Level 109 mmol/L (98-107) H Carbon Dioxide Level 27 mmol/L (21-32) Anion Gap 10 (6-14) Blood Urea Nitrogen 13 mg/dL (7-20) Creatinine 1.0 mg/dL (0.6-1.0) Estimated GFR (Cockcroft-Gault) 54.7 BUN/Creatinine Ratio 13 (6-20) Glucose Level 76 mg/dL (70-99) Calcium Level 8.8 mg/dL (8.5-10.1) Total Bilirubin 0.4 mg/dL (0.2-1.0) Aspartate Amino Transferase (AST) 20 U/L (15-37) Alanine Aminotransferase (ALT) 25 U/L (14-59) Alkaline Phosphatase 139 U/L (46-116) H Total Protein 6.9 g/dL (6.4-8.2) Albumin 3.1 g/dL (3.4-5.0) L Albumin/Globulin Ratio 0.8 (1.0-1.7) L Valproic Acid Level 66 mcg/mL (50-100) Valproic Acid Last Dose Date 12/07/20 Valproic Acid Last Dose Time 2100 Current Medications: Meds: Laboratory Tests Test 12/08/20 06:40 White Blood Count 6.0 x10^3/uL Red Blood Count 4.50 x10^6/uL Hemoglobin 13.5 g/dL Hematocrit 40.4 % Mean Corpuscular Volume 90 fL Mean Corpuscular Hemoglobin 30 pg Mean Corpuscular Hemoglobin Concent 34 g/dL Red Cell Distribution Width 14.6 % Platelet Count 199 x10^3/uL Neutrophils (%) (Auto) 80 % Lymphocytes (%) (Auto) 11 % Monocytes (%) (Auto) 7 % Eosinophils (%) (Auto) 2 % Basophils (%) (Auto) 1 % Neutrophils # (Auto) 4.8 x10^3uL Lymphocytes # (Auto) 0.7 x10^3/uL Monocytes # (Auto) 0.4 x10^3/uL Eosinophils # (Auto) 0.1 x10^3/uL Basophils # (Auto) 0.0 x10^3/uL Sodium Level 146 mmol/L Potassium Level 3.8 mmol/L Chloride Level 109 mmol/L Carbon Dioxide Level 27 mmol/L Anion Gap 10 Blood Urea Nitrogen 13 mg/dL Creatinine 1.0 mg/dL Estimated GFR (Cockcroft-Gault) 54.7 BUN/Creatinine Ratio 13 Glucose Level 76 mg/dL Calcium Level 8.8 mg/dL Total Bilirubin 0.4 mg/dL Aspartate Amino Transf (AST/SGOT) 20 U/L Alanine Aminotransferase (ALT/SGPT) 25 U/L Alkaline Phosphatase 139 U/L Total Protein 6.9 g/dL Albumin 3.1 g/dL Albumin/Globulin Ratio 0.8 Valproic Acid (Depakene) Level 66 mcg/mL Valproic Acid Last Dose Date 12/07/20 Valproic Acid Last Dose Time 2100 Current Medications Medications (Trade) Dose Ordered Sig/Brandy Route PRN Reason Start Time Stop Time Status Last Admin Dose Admin Acetaminophen (Tylenol) 650 mg PRN Q6HRS PRN PO MILD PAIN / TEMP > 100.3'F 12/03/20 22:15 Multi-Ingredient Ointment (Analgesic [place]) 1 william PRN QID PRN TP MUSCLE PAIN 12/03/20 22:15 Al Hydroxide/Mg Hydroxide (Mylanta Plus Xs) 15 ml PRN AFTMEALHC PRN PO DYSPEPSIA 12/03/20 22:15 Magnesium Hydroxide (Milk Of Magnesia) 2,400 mg PRN QHS PRN PO CONSTIPATION 12/03/20 22:15 Aspirin (Aspirin Enteric Coated) 81 mg DAILY PO 12/04/20 09:00 12/08/20 11:00 Divalproex Sodium (Depakote Sprinkles) 125 mg BID PO 12/03/20 23:00 12/05/20 13:49 DC 12/05/20 09:41 Donepezil HCl (Aricept) 10 mg HS PO 12/03/20 23:00 12/08/20 20:31 Lorazepam (Ativan) 0.5 mg BID PO 12/03/20 23:00 12/07/20 16:20 DC 12/07/20 08:27 Lorazepam (Ativan) 0.5 mg PRN Q6HRS PRN PO ANXIETY / AGITATION 12/03/20 22:30 12/06/20 17:03 Memantine (Namenda) 10 mg BID PO 12/03/20 23:00 12/08/20 20:34 Memantine (Namenda) 10 mg BID PO 12/04/20 09:00 UNV Trazodone HCl (Desyrel) 50 mg HS PO 12/03/20 23:00 12/08/20 18:32 DC 12/07/20 19:57 Non-Formulary Medication (Acetaminophen Er ) 650 mg HS PRN PO FEVER/PAIN 12/03/20 22:15 UNV Vitamin D (Vitamin D3) 50,000 unit WEEKLY PO 12/10/20 09:00 Fluvoxamine Maleate (Luvox) 75 mg DAILY PO 12/04/20 09:00 12/05/20 18:55 DC 12/05/20 09:41 Lactobacillus Rhamnosus (Culturelle) 1 cap DAILY PO 12/04/20 09:00 12/08/20 11:00 Cetirizine HCl (ZyrTEC) 10 mg PRN DAILY PRN PO ALLERGIES 12/03/20 22:45 Melatonin (Melatonin) 4.5 mg HS PO 12/03/20 23:00 12/08/20 20:30 Multivitamins/ Calcium (Thera-M Plus) 1 tab DAILY PO 12/04/20 09:00 12/08/20 11:00 Divalproex Sodium (Depakote Sprinkles) 125 mg 0900,1300,1700,2100 PO 12/05/20 14:00 12/08/20 20:31 Fluvoxamine Maleate (Luvox) 100 mg DAILY PO 12/06/20 09:00 12/08/20 11:00 Lorazepam (Ativan) 0.25 mg BID PO 12/07/20 21:00 12/11/20 23:50 12/08/20 20:34 Lorazepam (Ativan) 0.25 mg DAILY PO 12/12/20 09:00 12/16/20 16:00 Trazodone HCl (Desyrel) 50 mg PRN QHS PRN PO INSOMNIA 12/08/20 18:30 I have reviewed the current psychotropics carefully including drug interactions. Risk benefit ratio favors no change other than as noted in my dictated progress note. Diagnosis: Problems: (1) Dementia, vascular, with depression (2) Dementia, vascular, with delusions (3) Dementia in Alzheimer's disease with depression (4) Dementia in Alzheimer's disease with delusions (5) Major neurocognitive disorder (6) Dementia in [place]'s disease with behavioral disturbance (7) Impulse control disorder, unspecified (8) Anxiety disorder, unspecified DIONICIO RENEE MD Dec 08, 2020 22:06
[2020-12-09 05:57] VITALS: BP 95/68
--- NOTE | 2020-12-09 08:38 | PDOC ---
Exam Note: Papo Note: This note is a late entry for 12/08/2020 covers elements not covered in my initial note. Subjective: The patient was seen individually in the evening of 12/08/2020 with Wyatt NICOLE, discussed and reviewed the chart. The patient slept 8-3/4 hours previous night. The patient slept into 11 a.m. Gait is somewhat unsteady. She is a little sedated at times and wheelchair at times. One of the daughters called and told the nursing staff that she felt the patient was having tooth pain causing some of the behavior problems and the other daughter feels that the UTI could be contributing to this. UA has been negative. We will go ahead and repeat it as it is foul smelling per nursing aids. Review of Systems: No CV, , pulmonary, eye, ENT system symptoms on review. Reliability poor. Mental Status Exam: The patient is oriented to herself. Insight and judgment, recent and remote memory, attention and concentration is poor consistent with her diagnoses. Laboratory Data: Reviewed. Impression: Major neurocognitive disorder Alzheimer vascular with delusion, depression, behavioral disturbance. Anxiety disorder unspecified. Impulse control disorder unspecified. Plan: Repeat UA. Maintain Luvox for OCD and rest of the psychotropics unchanged for now. Repeat valproic acid level. Adjust further as clinically indicated. Assessment: Vital Signs/I&O: Vital Signs Date Time Temp Pulse Resp B/P (MAP) Pulse Ox O2 Delivery O2 Flow Rate FiO2 12/09/20 05:57 98.2 87 18 95/68 (77) 94 12/08/20 05:47 Room Air I & O 12/08/20 12/08/20 12/09/20 14:59 22:59 06:59 Intake Total 840 ml 120 ml Balance 840 ml 120 ml Current Medications: Meds: Current Medications Medications (Trade) Dose Ordered Sig/Brandy Route PRN Reason Start Time Stop Time Status Last Admin Dose Admin Acetaminophen (Tylenol) 650 mg PRN Q6HRS PRN PO MILD PAIN / TEMP > 100.3'F 12/03/20 22:15 Multi-Ingredient Ointment (Analgesic [place]) 1 william PRN QID PRN TP MUSCLE PAIN 12/03/20 22:15 Al Hydroxide/Mg Hydroxide (Mylanta Plus Xs) 15 ml PRN AFTMEALHC PRN PO DYSPEPSIA 12/03/20 22:15 Magnesium Hydroxide (Milk Of Magnesia) 2,400 mg PRN QHS PRN PO CONSTIPATION 12/03/20 22:15 Aspirin (Aspirin Enteric Coated) 81 mg DAILY PO 12/04/20 09:00 12/08/20 11:00 Divalproex Sodium (Depakote Sprinkles) 125 mg BID PO 12/03/20 23:00 12/05/20 13:49 DC 12/05/20 09:41 Donepezil HCl (Aricept) 10 mg HS PO 12/03/20 23:00 12/08/20 20:31 Lorazepam (Ativan) 0.5 mg BID PO 12/03/20 23:00 12/07/20 16:20 DC 12/07/20 08:27 Lorazepam (Ativan) 0.5 mg PRN Q6HRS PRN PO ANXIETY / AGITATION 12/03/20 22:30 12/06/20 17:03 Memantine (Namenda) 10 mg BID PO 12/03/20 23:00 12/08/20 20:34 Memantine (Namenda) 10 mg BID PO 12/04/20 09:00 UNV Trazodone HCl (Desyrel) 50 mg HS PO 12/03/20 23:00 12/08/20 18:32 DC 12/07/20 19:57 Non-Formulary Medication (Acetaminophen Er ) 650 mg HS PRN PO FEVER/PAIN 12/03/20 22:15 UNV Vitamin D (Vitamin D3) 50,000 unit WEEKLY PO 12/10/20 09:00 Fluvoxamine Maleate (Luvox) 75 mg DAILY PO 12/04/20 09:00 12/05/20 18:55 DC 12/05/20 09:41 Lactobacillus Rhamnosus (Culturelle) 1 cap DAILY PO 12/04/20 09:00 12/08/20 11:00 Cetirizine HCl (ZyrTEC) 10 mg PRN DAILY PRN PO ALLERGIES 12/03/20 22:45 Melatonin (Melatonin) 4.5 mg HS PO 12/03/20 23:00 12/08/20 20:30 Multivitamins/ Calcium (Thera-M Plus) 1 tab DAILY PO 12/04/20 09:00 12/08/20 11:00 Divalproex Sodium (Depakote Sprinkles) 125 mg 0900,1300,1700,2100 PO 12/05/20 14:00 12/08/20 20:31 Fluvoxamine Maleate (Luvox) 100 mg DAILY PO 12/06/20 09:00 12/08/20 11:00 Lorazepam (Ativan) 0.25 mg BID PO 12/07/20 21:00 12/11/20 23:50 12/08/20 20:34 Lorazepam (Ativan) 0.25 mg DAILY PO 12/12/20 09:00 12/16/20 16:00 Trazodone HCl (Desyrel) 50 mg PRN QHS PRN PO INSOMNIA 12/08/20 18:30 I have reviewed the current psychotropics carefully including drug interactions. Risk benefit ratio favors no change other than as noted in my dictated progress note. Diagnosis: Problems: (1) Dementia, vascular, with depression (2) Dementia, vascular, with delusions (3) Dementia in Alzheimer's disease with depression (4) Dementia in Alzheimer's disease with delusions (5) Major neurocognitive disorder (6) Dementia in Nida's disease with behavioral disturbance (7) Impulse control disorder, unspecified (8) Anxiety disorder, unspecified DIONICIO RENEE MD Dec 09, 2020 08:38
[2020-12-09] MEDS: ASPIRIN ENTERIC COATED 81 MG TABLET.DR. PO SCH (08:43)
[2020-12-09] MEDS: MULTIVITAMIN with MINERAL TABLET. PO SCH (08:43)
[2020-12-09] MEDS: DIVALPROEX 125 MG CAP.SPRINK PO SCH ×4 (08:43→22:12)
[2020-12-09] MEDS: MEMANTINE 10 MG TABLET. PO SCH (08:43)
[2020-12-09] MEDS: LACTOBACILLUS RHAMNOSUS GG 1 CAPSULE. PO SCH (08:43)
[2020-12-09] MEDS: LORazepam 0.5 MG TABLET PO SCH ×2 (08:49→22:12)
[2020-12-09 15:32] VITALS: BP 120/86
[2020-12-09 18:47] LABS: BILIRUBIN,URINE NEG (NEG); CLARITY,URINE CLOUDY; COLOR,URINE AMBER; GLUCOSE,URINE NEG (NEG)
[2020-12-09 18:48] LABS: AMORPHOUS SEDIMENT,UR PRESENT /HPF; BACTERIA,URINE FEW /HPF (0-FEW); NITRITE,URINE NEG (NEG); RBC,URINE OCC /HPF (0-2); SQUAMOUS EPITHELIAL CELL,UR FEW /LPF; UROBILINOGEN,URINE 0.2 mg/dL (0.2 mg/dL)
[2020-12-09] MEDS: MELATONIN 3 MG TABLET PO SCH (21:00)
--- NOTE | 2020-12-09 21:53 | PDOC ---
Exam Note: Papo Note: Please also refer to the separate dictated note~for this date of service dictated separately.~Patient seen individually. Discussed the patient with Nursing staff reviewed the chart.~Reviewed interim history and current functioning. Reviewed vital signs,~Labs/ Radiology~and current medications noted below. Continue current treatment with the changes noted in the dictated addendum note Assessment: Vital Signs/I&O: Vital Signs Date Time Temp Pulse Resp B/P (MAP) Pulse Ox O2 Delivery O2 Flow Rate FiO2 12/09/20 15:32 97.6 71 18 120/86 (97) 97 12/08/20 05:47 Room Air I & O 12/08/20 12/08/20 12/09/20 15:00 23:00 07:00 Intake Total 840 ml 120 ml Balance 840 ml 120 ml Labs: Laboratory Tests Test 12/09/20 18:25 Urine Collection Type Void Urine Color Elissa Urine Clarity Cloudy Urine pH 6.0 Urine Specific [place] >=1.030 Urine Protein Trace (NEG-TRACE) Urine Glucose (UA) Neg mg/dL (NEG) Urine Ketones (Stick) 15 mg/dL (NEG) Urine Blood Neg (NEG) Urine Nitrite Neg (NEG) Urine Bilirubin Neg (NEG) Urine Urobilinogen Dipstick 0.2 mg/dL (0.2 mg/dL) Urine Leukocyte Esterase Small (NEG) Urine RBC Occ /HPF (0-2) Urine WBC 11-20 /HPF (0-4) Urine Squamous Epithelial Cells Few /LPF Urine Amorphous Sediment Present /HPF Urine Bacteria Few /HPF (0-FEW) Current Medications: Meds: Laboratory Tests Test 12/09/20 18:25 Urine Collection Type Void Urine Color Elissa Urine Clarity Cloudy Urine pH 6.0 Urine Specific [place] >=1.030 Urine Protein Trace Urine Glucose (UA) Neg mg/dL Urine Ketones (Stick) 15 mg/dL Urine Blood Neg Urine Nitrite Neg Urine Bilirubin Neg Urine Urobilinogen Dipstick 0.2 mg/dL Urine Leukocyte Esterase Small Urine RBC Occ /HPF Urine WBC 11-20 /HPF Urine Squamous Epithelial Cells Few /LPF Urine Amorphous Sediment Present /HPF Urine Bacteria Few /HPF Current Medications Medications (Trade) Dose Ordered Sig/Brandy Route PRN Reason Start Time Stop Time Status Last Admin Dose Admin Acetaminophen (Tylenol) 650 mg PRN Q6HRS PRN PO MILD PAIN / TEMP > 100.3'F 12/03/20 22:15 Multi-Ingredient Ointment (Analgesic [place]) 1 william PRN QID PRN TP MUSCLE PAIN 12/03/20 22:15 Al Hydroxide/Mg Hydroxide (Mylanta Plus Xs) 15 ml PRN AFTMEALHC PRN PO DYSPEPSIA 12/03/20 22:15 Magnesium Hydroxide (Milk Of Magnesia) 2,400 mg PRN QHS PRN PO CONSTIPATION 12/03/20 22:15 Aspirin (Aspirin Enteric Coated) 81 mg DAILY PO 12/04/20 09:00 12/09/20 08:43 Divalproex Sodium (Depakote Sprinkles) 125 mg BID PO 12/03/20 23:00 12/05/20 13:49 DC 12/05/20 09:41 Donepezil HCl (Aricept) 10 mg HS PO 12/03/20 23:00 12/09/20 18:27 DC 12/08/20 20:31 Lorazepam (Ativan) 0.5 mg BID PO 12/03/20 23:00 12/07/20 16:20 DC 12/07/20 08:27 Lorazepam (Ativan) 0.5 mg PRN Q6HRS PRN PO ANXIETY / AGITATION 12/03/20 22:30 12/06/20 17:03 Memantine (Namenda) 10 mg BID PO 12/03/20 23:00 12/09/20 18:27 DC 12/09/20 08:43 Memantine (Namenda) 10 mg BID PO 12/04/20 09:00 UNV Trazodone HCl (Desyrel) 50 mg HS PO 12/03/20 23:00 12/08/20 18:32 DC 12/07/20 19:57 Non-Formulary Medication (Acetaminophen Er ) 650 mg HS PRN PO FEVER/PAIN 12/03/20 22:15 UNV Vitamin D (Vitamin D3) 50,000 unit WEEKLY PO 12/10/20 09:00 Fluvoxamine Maleate (Luvox) 75 mg DAILY PO 12/04/20 09:00 12/05/20 18:55 DC 12/05/20 09:41 Lactobacillus Rhamnosus (Culturelle) 1 cap DAILY PO 12/04/20 09:00 12/09/20 08:43 Cetirizine HCl (ZyrTEC) 10 mg PRN DAILY PRN PO ALLERGIES 12/03/20 22:45 Melatonin (Melatonin) 4.5 mg HS PO 12/03/20 23:00 12/08/20 20:30 Multivitamins/ Calcium (Thera-M Plus) 1 tab DAILY PO 12/04/20 09:00 12/09/20 08:43 Divalproex Sodium (Depakote Sprinkles) 125 mg 0900,1300,1700,2100 PO 12/05/20 14:00 12/09/20 17:23 Fluvoxamine Maleate (Luvox) 100 mg DAILY PO 12/06/20 09:00 12/09/20 08:43 Lorazepam (Ativan) 0.25 mg BID PO 12/07/20 21:00 12/11/20 23:50 12/09/20 08:49 Lorazepam (Ativan) 0.25 mg DAILY PO 12/12/20 09:00 12/16/20 16:00 Trazodone HCl (Desyrel) 50 mg PRN QHS PRN PO INSOMNIA 12/08/20 18:30 I have reviewed the current psychotropics carefully including drug interactions. Risk benefit ratio favors no change other than as noted in my dictated progress note. Diagnosis: Problems: (1) Dementia, vascular, with depression (2) Dementia, vascular, with delusions (3) Dementia in Alzheimer's disease with depression (4) Dementia in Alzheimer's disease with delusions (5) Major neurocognitive disorder (6) Dementia in [place]'s disease with behavioral disturbance (7) Impulse control disorder, unspecified (8) Anxiety disorder, unspecified DIONICIO RENEE MD Dec 09, 2020 21:53
[2020-12-09] MEDS: ACETAMINOPHEN 325 MG TABLET PO PRN (22:13)
[2020-12-10 06:15] VITALS: BP 106/74
[2020-12-10] MEDS: LORazepam 0.5 MG TABLET PO SCH ×2 (09:01→20:03)
[2020-12-10] MEDS: MULTIVITAMIN with MINERAL TABLET. PO SCH (09:01)
[2020-12-10] MEDS: CHOLECALCIFEROL (VITAMIN D3) 50,000 UNIT CAPSULE PO SCH (09:01)
[2020-12-10] MEDS: LACTOBACILLUS RHAMNOSUS GG 1 CAPSULE. PO SCH (09:01)
[2020-12-10] MEDS: ASPIRIN ENTERIC COATED 81 MG TABLET.DR. PO SCH (09:02)
[2020-12-10] MEDS: DIVALPROEX 125 MG CAP.SPRINK PO SCH ×4 (09:02→20:01)
[2020-12-10 15:51] VITALS: BP 104/72
[2020-12-10] MEDS: MELATONIN 3 MG TABLET PO SCH (20:01)
--- NOTE | 2020-12-10 22:00 | PDOC ---
Exam Note: Papo Note: Please also refer to the separate dictated note~for this date of service dictated separately.~Patient seen individually. Discussed the patient with Nursing staff reviewed the chart.~Reviewed interim history and current functioning. Reviewed vital signs,~Labs/ Radiology~and current medications noted below. Continue current treatment with the changes noted in the dictated addendum note Assessment: Vital Signs/I&O: Vital Signs Date Time Temp Pulse Resp B/P (MAP) Pulse Ox O2 Delivery O2 Flow Rate FiO2 12/10/20 15:51 97.9 92 16 104/72 (83) 98 12/08/20 05:47 Room Air I & O 12/09/20 12/09/20 12/10/20 15:00 23:00 07:00 Intake Total 480 ml 240 ml 0 ml Balance 480 ml 240 ml 0 ml Current Medications: Meds: Current Medications Medications (Trade) Dose Ordered Sig/Brandy Route PRN Reason Start Time Stop Time Status Last Admin Dose Admin Acetaminophen (Tylenol) 650 mg PRN Q6HRS PRN PO MILD PAIN / TEMP > 100.3'F 12/03/20 22:15 12/09/20 22:13 Multi-Ingredient Ointment (Analgesic [place]) 1 william PRN QID PRN TP MUSCLE PAIN 12/03/20 22:15 Al Hydroxide/Mg Hydroxide (Mylanta Plus Xs) 15 ml PRN AFTMEALHC PRN PO DYSPEPSIA 12/03/20 22:15 Magnesium Hydroxide (Milk Of Magnesia) 2,400 mg PRN QHS PRN PO CONSTIPATION 12/03/20 22:15 Aspirin (Aspirin Enteric Coated) 81 mg DAILY PO 12/04/20 09:00 12/10/20 09:02 Divalproex Sodium (Depakote Sprinkles) 125 mg BID PO 12/03/20 23:00 12/05/20 13:49 DC 12/05/20 09:41 Donepezil HCl (Aricept) 10 mg HS PO 12/03/20 23:00 12/09/20 18:27 DC 12/08/20 20:31 Lorazepam (Ativan) 0.5 mg BID PO 12/03/20 23:00 12/07/20 16:20 DC 12/07/20 08:27 Lorazepam (Ativan) 0.5 mg PRN Q6HRS PRN PO ANXIETY / AGITATION 12/03/20 22:30 12/06/20 17:03 Memantine (Namenda) 10 mg BID PO 12/03/20 23:00 12/09/20 18:27 DC 12/09/20 08:43 Memantine (Namenda) 10 mg BID PO 12/04/20 09:00 UNV Trazodone HCl (Desyrel) 50 mg HS PO 12/03/20 23:00 12/08/20 18:32 DC 12/07/20 19:57 Non-Formulary Medication (Acetaminophen Er ) 650 mg HS PRN PO FEVER/PAIN 12/03/20 22:15 UNV Vitamin D (Vitamin D3) 50,000 unit WEEKLY PO 12/10/20 09:00 12/10/20 09:01 Fluvoxamine Maleate (Luvox) 75 mg DAILY PO 12/04/20 09:00 12/05/20 18:55 DC 12/05/20 09:41 Lactobacillus Rhamnosus (Culturelle) 1 cap DAILY PO 12/04/20 09:00 12/10/20 09:01 Cetirizine HCl (ZyrTEC) 10 mg PRN DAILY PRN PO ALLERGIES 12/03/20 22:45 Melatonin (Melatonin) 4.5 mg HS PO 12/03/20 23:00 12/10/20 20:01 Multivitamins/ Calcium (Thera-M Plus) 1 tab DAILY PO 12/04/20 09:00 12/10/20 09:01 Divalproex Sodium (Depakote Sprinkles) 125 mg 0900,1300,1700,2100 PO 12/05/20 14:00 12/10/20 20:01 Fluvoxamine Maleate (Luvox) 100 mg DAILY PO 12/06/20 09:00 12/10/20 09:02 Lorazepam (Ativan) 0.25 mg BID PO 12/07/20 21:00 12/11/20 23:50 12/10/20 20:03 Lorazepam (Ativan) 0.25 mg DAILY PO 12/12/20 09:00 12/16/20 16:00 Trazodone HCl (Desyrel) 50 mg PRN QHS PRN PO INSOMNIA 12/08/20 18:30 Current Medications Medications (Trade) Dose Ordered Sig/Brandy Route PRN Reason Start Time Stop Time Status Last Admin Dose Admin Vitamin D (Vitamin D3) 50,000 unit WEEKLY PO 12/10/20 09:00 12/10/20 09:01 I have reviewed the current psychotropics carefully including drug interactions. Risk benefit ratio favors no change other than as noted in my dictated progress note. Diagnosis: Problems: (1) Dementia, vascular, with depression (2) Dementia, vascular, with delusions (3) Dementia in Alzheimer's disease with depression (4) Dementia in Alzheimer's disease with delusions (5) Major neurocognitive disorder (6) Dementia in [place]'s disease with behavioral disturbance (7) Impulse control disorder, unspecified (8) Anxiety disorder, unspecified DIONICIO RENEE MD Dec 10, 2020 22:00
[2020-12-11 05:47] VITALS: BP 114/61
--- NOTE | 2020-12-11 08:03 | PDOC ---
Exam Note: Papo Note: This note is a late entry for 12/09/2020 covers elements not covered in my initial note. Subjective: The patient was seen individually in the evening of 12/09/2020 with Teresita NICOLE, discussed and reviewed the chart. The patient slept 7-3/4 hours previous night. The patient has done better. She remains confused, but not aggressive. She was unsteady in her gait previous night and uses the wheelchair, takes the meds crushed in pudding. Spends more time in the dayroom. She is on Aricept and Namenda but at this stage of dementia neither one would be of any much benefit and we will stop them. Valproic acid level on 12/09 is 66 and therapeutic. Review of Systems: No CV, , pulmonary, eye, ENT system symptoms on review. Reliability poor. Mental Status Exam: The patient is oriented to herself. Insight and judgment, recent and remote memory, attention and concentration is poor consistent with her diagnoses. Laboratory Data: Reviewed. Impression: Major neurocognitive disorder Alzheimer vascular with delusion, depression, behavioral disturbance. Anxiety disorder unspecified. Impulse control disorder unspecified. Plan: Stop Namenda and Aricept as above. Continue rest of the psychotropics unchanged. Adjust further as clinically indicated. Maintain Luvox 100 mg a day. We may need to increase this further. Assessment: Vital Signs/I&O: Vital Signs Date Time Temp Pulse Resp B/P (MAP) Pulse Ox O2 Delivery O2 Flow Rate FiO2 12/11/20 05:47 97.8 106 18 114/61 (78) 97 12/08/20 05:47 Room Air I & O 12/10/20 12/10/20 12/11/20 15:00 23:00 07:00 Intake Total 570 ml 240 ml 120 ml Balance 570 ml 240 ml 120 ml Current Medications: Meds: Current Medications Medications (Trade) Dose Ordered Sig/Brandy Route PRN Reason Start Time Stop Time Status Last Admin Dose Admin Acetaminophen (Tylenol) 650 mg PRN Q6HRS PRN PO MILD PAIN / TEMP > 100.3'F 12/03/20 22:15 12/09/20 22:13 Multi-Ingredient Ointment (Analgesic [place]) 1 william PRN QID PRN TP MUSCLE PAIN 12/03/20 22:15 Al Hydroxide/Mg Hydroxide (Mylanta Plus Xs) 15 ml PRN AFTMEALHC PRN PO DYSPEPSIA 12/03/20 22:15 Magnesium Hydroxide (Milk Of Magnesia) 2,400 mg PRN QHS PRN PO CONSTIPATION 12/03/20 22:15 Aspirin (Aspirin Enteric Coated) 81 mg DAILY PO 12/04/20 09:00 12/10/20 09:02 Divalproex Sodium (Depakote Sprinkles) 125 mg BID PO 12/03/20 23:00 12/05/20 13:49 DC 12/05/20 09:41 Donepezil HCl (Aricept) 10 mg HS PO 12/03/20 23:00 12/09/20 18:27 DC 12/08/20 20:31 Lorazepam (Ativan) 0.5 mg BID PO 12/03/20 23:00 12/07/20 16:20 DC 12/07/20 08:27 Lorazepam (Ativan) 0.5 mg PRN Q6HRS PRN PO ANXIETY / AGITATION 12/03/20 22:30 12/06/20 17:03 Memantine (Namenda) 10 mg BID PO 12/03/20 23:00 12/09/20 18:27 DC 12/09/20 08:43 Memantine (Namenda) 10 mg BID PO 12/04/20 09:00 UNV Trazodone HCl (Desyrel) 50 mg HS PO 12/03/20 23:00 12/08/20 18:32 DC 12/07/20 19:57 Non-Formulary Medication (Acetaminophen Er ) 650 mg HS PRN PO FEVER/PAIN 12/03/20 22:15 UNV Vitamin D (Vitamin D3) 50,000 unit WEEKLY PO 12/10/20 09:00 12/10/20 09:01 Fluvoxamine Maleate (Luvox) 75 mg DAILY PO 12/04/20 09:00 12/05/20 18:55 DC 12/05/20 09:41 Lactobacillus Rhamnosus (Culturelle) 1 cap DAILY PO 12/04/20 09:00 12/10/20 09:01 Cetirizine HCl (ZyrTEC) 10 mg PRN DAILY PRN PO ALLERGIES 12/03/20 22:45 Melatonin (Melatonin) 4.5 mg HS PO 12/03/20 23:00 12/10/20 20:01 Multivitamins/ Calcium (Thera-M Plus) 1 tab DAILY PO 12/04/20 09:00 12/10/20 09:01 Divalproex Sodium (Depakote Sprinkles) 125 mg 0900,1300,1700,2100 PO 12/05/20 14:00 12/10/20 20:01 Fluvoxamine Maleate (Luvox) 100 mg DAILY PO 12/06/20 09:00 12/10/20 09:02 Lorazepam (Ativan) 0.25 mg BID PO 12/07/20 21:00 12/11/20 23:50 12/10/20 20:03 Lorazepam (Ativan) 0.25 mg DAILY PO 12/12/20 09:00 12/16/20 16:00 Trazodone HCl (Desyrel) 50 mg PRN QHS PRN PO INSOMNIA 12/08/20 18:30 Current Medications Medications (Trade) Dose Ordered Sig/Brandy Route PRN Reason Start Time Stop Time Status Last Admin Dose Admin Vitamin D (Vitamin D3) 50,000 unit WEEKLY PO 12/10/20 09:00 12/10/20 09:01 I have reviewed the current psychotropics carefully including drug interactions. Risk benefit ratio favors no change other than as noted in my dictated progress note. 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
--- NOTE | 2020-12-11 08:19 | PDOC ---
Exam Note: Papo Note: This note is a late entry for 12/10/2020 covers elements not covered in my initial note. Subjective: The patient was seen individually in the evening of 12/10/2020 with Teresita NICOLE, discussed and reviewed the chart. The patient slept 7 hours previous night. Previous night the patient was resistive with medications, somewhat sedated during the day today, confused. No aggression. Review of Systems: No CV, , pulmonary, eye, ENT system symptoms on review. Mental Status Exam: The patient is oriented to herself. Insight and judgment, recent and remote memory, attention and concentration is poor consistent with her diagnoses. Laboratory Data: Reviewed. Impression: Major neurocognitive disorder Alzheimer vascular with delusion, depression, behavioral disturbance. Anxiety disorder unspecified. Impulse control disorder unspecified. Plan: Continue rest of the psychotropics unchanged. Adjust further as clinically indicated. Assessment: Vital Signs/I&O: Vital Signs Date Time Temp Pulse Resp B/P (MAP) Pulse Ox O2 Delivery O2 Flow Rate FiO2 12/11/20 05:47 97.8 106 18 114/61 (78) 97 12/08/20 05:47 Room Air I & O 12/10/20 12/10/20 12/11/20 15:00 23:00 07:00 Intake Total 570 ml 240 ml 120 ml Balance 570 ml 240 ml 120 ml Current Medications: Meds: Current Medications Medications (Trade) Dose Ordered Sig/Brandy Route PRN Reason Start Time Stop Time Status Last Admin Dose Admin Acetaminophen (Tylenol) 650 mg PRN Q6HRS PRN PO MILD PAIN / TEMP > 100.3'F 12/03/20 22:15 12/09/20 22:13 Multi-Ingredient Ointment (Analgesic [place]) 1 william PRN QID PRN TP MUSCLE PAIN 12/03/20 22:15 Al Hydroxide/Mg Hydroxide (Mylanta Plus Xs) 15 ml PRN AFTMEALHC PRN PO DYSPEPSIA 12/03/20 22:15 Magnesium Hydroxide (Milk Of Magnesia) 2,400 mg PRN QHS PRN PO CONSTIPATION 12/03/20 22:15 Aspirin (Aspirin Enteric Coated) 81 mg DAILY PO 12/04/20 09:00 12/10/20 09:02 Divalproex Sodium (Depakote Sprinkles) 125 mg BID PO 12/03/20 23:00 12/05/20 13:49 DC 12/05/20 09:41 Donepezil HCl (Aricept) 10 mg HS PO 12/03/20 23:00 12/09/20 18:27 DC 12/08/20 20:31 Lorazepam (Ativan) 0.5 mg BID PO 12/03/20 23:00 12/07/20 16:20 DC 12/07/20 08:27 Lorazepam (Ativan) 0.5 mg PRN Q6HRS PRN PO ANXIETY / AGITATION 12/03/20 22:30 12/06/20 17:03 Memantine (Namenda) 10 mg BID PO 12/03/20 23:00 12/09/20 18:27 DC 12/09/20 08:43 Memantine (Namenda) 10 mg BID PO 12/04/20 09:00 UNV Trazodone HCl (Desyrel) 50 mg HS PO 12/03/20 23:00 12/08/20 18:32 DC 12/07/20 19:57 Non-Formulary Medication (Acetaminophen Er ) 650 mg HS PRN PO FEVER/PAIN 12/03/20 22:15 UNV Vitamin D (Vitamin D3) 50,000 unit WEEKLY PO 12/10/20 09:00 12/10/20 09:01 Fluvoxamine Maleate (Luvox) 75 mg DAILY PO 12/04/20 09:00 12/05/20 18:55 DC 12/05/20 09:41 Lactobacillus Rhamnosus (Culturelle) 1 cap DAILY PO 12/04/20 09:00 12/10/20 09:01 Cetirizine HCl (ZyrTEC) 10 mg PRN DAILY PRN PO ALLERGIES 12/03/20 22:45 Melatonin (Melatonin) 4.5 mg HS PO 12/03/20 23:00 12/10/20 20:01 Multivitamins/ Calcium (Thera-M Plus) 1 tab DAILY PO 12/04/20 09:00 12/10/20 09:01 Divalproex Sodium (Depakote Sprinkles) 125 mg 0900,1300,1700,2100 PO 12/05/20 14:00 12/10/20 20:01 Fluvoxamine Maleate (Luvox) 100 mg DAILY PO 12/06/20 09:00 12/10/20 09:02 Lorazepam (Ativan) 0.25 mg BID PO 12/07/20 21:00 12/11/20 23:50 12/10/20 20:03 Lorazepam (Ativan) 0.25 mg DAILY PO 12/12/20 09:00 12/16/20 16:00 Trazodone HCl (Desyrel) 50 mg PRN QHS PRN PO INSOMNIA 12/08/20 18:30 Current Medications Medications (Trade) Dose Ordered Sig/Brandy Route PRN Reason Start Time Stop Time Status Last Admin Dose Admin Vitamin D (Vitamin D3) 50,000 unit WEEKLY PO 12/10/20 09:00 12/10/20 09:01 I have reviewed the current psychotropics carefully including drug interactions. Risk benefit ratio favors no change other than as noted in my dictated progress note. Diagnosis: Problems: (1) Dementia, vascular, with depression (2) Dementia, vascular, with delusions (3) Dementia in Alzheimer's disease with depression (4) Dementia in Alzheimer's disease with delusions (5) Major neurocognitive disorder (6) Dementia in [place]ida's disease with behavioral disturbance (7) Impulse control disorder, unspecified (8) Anxiety disorder, unspecified DIONICIO RENEE MD Dec 11, 2020 08:18
[2020-12-11] MEDS: MULTIVITAMIN with MINERAL TABLET. PO SCH (08:37)
[2020-12-11] MEDS: ASPIRIN ENTERIC COATED 81 MG TABLET.DR. PO SCH (08:37)
[2020-12-11] MEDS: DIVALPROEX 125 MG CAP.SPRINK PO SCH ×4 (08:37→20:47)
[2020-12-11] MEDS: LORazepam 0.5 MG TABLET PO SCH ×2 (08:37→20:46)
[2020-12-11] MEDS: LACTOBACILLUS RHAMNOSUS GG 1 CAPSULE. PO SCH (08:37)
[2020-12-11 15:55] VITALS: BP 127/75
[2020-12-11] MEDS: MELATONIN 3 MG TABLET PO SCH (20:46)
--- NOTE | 2020-12-11 21:53 | PDOC ---
Exam Note: Papo Note: Please also refer to the separate dictated note~for this date of service dictated separately.~Patient seen individually. Discussed the patient with Nursing staff reviewed the chart.~Reviewed interim history and current functioning. Reviewed vital signs,~Labs/ Radiology~and current medications noted below. Continue current treatment with the changes noted in the dictated addendum note Assessment: Vital Signs/I&O: Vital Signs Date Time Temp Pulse Resp B/P (MAP) Pulse Ox O2 Delivery O2 Flow Rate FiO2 12/11/20 15:55 97.0 104 20 127/75 (92) 97 12/08/20 05:47 Room Air I & O 12/10/20 12/10/20 12/11/20 15:00 23:00 07:00 Intake Total 570 ml 240 ml 120 ml Balance 570 ml 240 ml 120 ml Current Medications: Meds: Current Medications Medications (Trade) Dose Ordered Sig/Brandy Route PRN Reason Start Time Stop Time Status Last Admin Dose Admin Acetaminophen (Tylenol) 650 mg PRN Q6HRS PRN PO MILD PAIN / TEMP > 100.3'F 12/03/20 22:15 12/09/20 22:13 Multi-Ingredient Ointment (Analgesic [place]) 1 william PRN QID PRN TP MUSCLE PAIN 12/03/20 22:15 Al Hydroxide/Mg Hydroxide (Mylanta Plus Xs) 15 ml PRN AFTMEALHC PRN PO DYSPEPSIA 12/03/20 22:15 Magnesium Hydroxide (Milk Of Magnesia) 2,400 mg PRN QHS PRN PO CONSTIPATION 12/03/20 22:15 Aspirin (Aspirin Enteric Coated) 81 mg DAILY PO 12/04/20 09:00 12/11/20 08:37 Divalproex Sodium (Depakote Sprinkles) 125 mg BID PO 12/03/20 23:00 12/05/20 13:49 DC 12/05/20 09:41 Donepezil HCl (Aricept) 10 mg HS PO 12/03/20 23:00 12/09/20 18:27 DC 12/08/20 20:31 Lorazepam (Ativan) 0.5 mg BID PO 12/03/20 23:00 12/07/20 16:20 DC 12/07/20 08:27 Lorazepam (Ativan) 0.5 mg PRN Q6HRS PRN PO ANXIETY / AGITATION 12/03/20 22:30 12/06/20 17:03 Memantine (Namenda) 10 mg BID PO 12/03/20 23:00 12/09/20 18:27 DC 12/09/20 08:43 Memantine (Namenda) 10 mg BID PO 12/04/20 09:00 UNV Trazodone HCl (Desyrel) 50 mg HS PO 12/03/20 23:00 12/08/20 18:32 DC 12/07/20 19:57 Non-Formulary Medication (Acetaminophen Er ) 650 mg HS PRN PO FEVER/PAIN 12/03/20 22:15 UNV Vitamin D (Vitamin D3) 50,000 unit WEEKLY PO 12/10/20 09:00 12/10/20 09:01 Fluvoxamine Maleate (Luvox) 75 mg DAILY PO 12/04/20 09:00 12/05/20 18:55 DC 12/05/20 09:41 Lactobacillus Rhamnosus (Culturelle) 1 cap DAILY PO 12/04/20 09:00 12/11/20 08:37 Cetirizine HCl (ZyrTEC) 10 mg PRN DAILY PRN PO ALLERGIES 12/03/20 22:45 Melatonin (Melatonin) 4.5 mg HS PO 12/03/20 23:00 12/11/20 20:46 Multivitamins/ Calcium (Thera-M Plus) 1 tab DAILY PO 12/04/20 09:00 12/11/20 08:37 Divalproex Sodium (Depakote Sprinkles) 125 mg 0900,1300,1700,2100 PO 12/05/20 14:00 12/11/20 20:47 Fluvoxamine Maleate (Luvox) 100 mg DAILY PO 12/06/20 09:00 12/11/20 17:12 DC 12/11/20 08:37 Lorazepam (Ativan) 0.25 mg BID PO 12/07/20 21:00 12/11/20 23:50 12/11/20 20:46 Lorazepam (Ativan) 0.25 mg DAILY PO 12/12/20 09:00 12/16/20 16:00 Trazodone HCl (Desyrel) 50 mg PRN QHS PRN PO INSOMNIA 6/20/21 18:30 Fluvoxamine Maleate (Luvox) 125 mg DAILY PO 12/12/20 09:00 I have reviewed the current psychotropics carefully including drug interactions. Risk benefit ratio favors no change other than as noted in my dictated progress note. Diagnosis: Problems: (1) Dementia, vascular, with depression (2) Dementia, vascular, with delusions (3) Dementia in Alzheimer's disease with depression (4) Dementia in Alzheimer's disease with delusions (5) Major neurocognitive disorder (6) Dementia in Nida's disease with behavioral disturbance (7) Impulse control disorder, unspecified (8) Anxiety disorder, unspecified DIONICIO RENEE MD Dec 11, 2020 21:53
[2020-12-12 05:51] VITALS: BP 115/67
--- NOTE | 2020-12-12 06:55 | PDOC ---
Exam Note: Papo Note: This note is a late entry for 12/11/2020 covers elements not covered in my initial note. Subjective: The patient was seen individually in the evening of 12/11/2020 with Elissa NICOLE, discussed and reviewed the chart. The patient slept 6-3/4 hours previous night. Urine C&S is negative. She is compliant with medications. She was found on the floor in her room but no falls or no injuries. She is incontinent, somewhat obsessive, anxious. Review of Systems: No CV, , pulmonary, eye, ENT system symptoms on review. Mental Status Exam: The patient is oriented to herself. Insight and judgment, recent and remote memory, attention and concentration is poor consistent with her diagnoses. Laboratory Data: Reviewed. Impression: Major neurocognitive disorder Alzheimer vascular with delusion, depression, behavioral disturbance. Anxiety disorder unspecified. Impulse control disorder unspecified. Plan: Continue rest of the psychotropics unchanged. Increase Luvox from 100 mg a day to 125 mg a day. Rest unchanged for now. Assessment: Vital Signs/I&O: Vital Signs Date Time Temp Pulse Resp B/P (MAP) Pulse Ox O2 Delivery O2 Flow Rate FiO2 12/12/20 05:51 98.0 83 16 115/67 (83) 96 12/08/20 05:47 Room Air I & O 12/11/20 12/11/20 12/12/20 14:59 22:59 06:59 Intake Total 1000 ml 480 ml 120 ml Balance 1000 ml 480 ml 120 ml Current Medications: Meds: Current Medications Medications (Trade) Dose Ordered Sig/Brandy Route PRN Reason Start Time Stop Time Status Last Admin Dose Admin Acetaminophen (Tylenol) 650 mg PRN Q6HRS PRN PO MILD PAIN / TEMP > 100.3'F 12/03/20 22:15 12/09/20 22:13 Multi-Ingredient Ointment (Analgesic [place]) 1 william PRN QID PRN TP MUSCLE PAIN 12/03/20 22:15 Al Hydroxide/Mg Hydroxide (Mylanta Plus Xs) 15 ml PRN AFTMEALHC PRN PO DYSPEPSIA 12/03/20 22:15 Magnesium Hydroxide (Milk Of Magnesia) 2,400 mg PRN QHS PRN PO CONSTIPATION 12/03/20 22:15 Aspirin (Aspirin Enteric Coated) 81 mg DAILY PO 12/04/20 09:00 12/11/20 08:37 Divalproex Sodium (Depakote Sprinkles) 125 mg BID PO 12/03/20 23:00 12/05/20 13:49 DC 12/05/20 09:41 Donepezil HCl (Aricept) 10 mg HS PO 12/03/20 23:00 12/09/20 18:27 DC 12/08/20 20:31 Lorazepam (Ativan) 0.5 mg BID PO 12/03/20 23:00 12/07/20 16:20 DC 12/07/20 08:27 Lorazepam (Ativan) 0.5 mg PRN Q6HRS PRN PO ANXIETY / AGITATION 12/03/20 22:30 12/06/20 17:03 Memantine (Namenda) 10 mg BID PO 12/03/20 23:00 12/09/20 18:27 DC 12/09/20 08:43 Memantine (Namenda) 10 mg BID PO 12/04/20 09:00 UNV Trazodone HCl (Desyrel) 50 mg HS PO 12/03/20 23:00 12/08/20 18:32 DC 12/07/20 19:57 Non-Formulary Medication (Acetaminophen Er ) 650 mg HS PRN PO FEVER/PAIN 12/03/20 22:15 UNV Vitamin D (Vitamin D3) 50,000 unit WEEKLY PO 12/10/20 09:00 12/10/20 09:01 Fluvoxamine Maleate (Luvox) 75 mg DAILY PO 12/04/20 09:00 12/05/20 18:55 DC 12/05/20 09:41 Lactobacillus Rhamnosus (Culturelle) 1 cap DAILY PO 12/04/20 09:00 12/11/20 08:37 Cetirizine HCl (ZyrTEC) 10 mg PRN DAILY PRN PO ALLERGIES 12/03/20 22:45 Melatonin (Melatonin) 4.5 mg HS PO 12/03/20 23:00 12/11/20 20:46 Multivitamins/ Calcium (Thera-M Plus) 1 tab DAILY PO 12/04/20 09:00 12/11/20 08:37 Divalproex Sodium (Depakote Sprinkles) 125 mg 0900,1300,1700,2100 PO 12/05/20 14:00 12/11/20 20:47 Fluvoxamine Maleate (Luvox) 100 mg DAILY PO 12/06/20 09:00 12/11/20 17:12 DC 12/11/20 08:37 Lorazepam (Ativan) 0.25 mg BID PO 12/07/20 21:00 12/11/20 23:50 DC 12/11/20 20:46 Lorazepam (Ativan) 0.25 mg DAILY PO 12/12/20 09:00 12/16/20 16:00 Trazodone HCl (Desyrel) 50 mg PRN QHS PRN PO INSOMNIA 12/08/20 18:30 Fluvoxamine Maleate (Luvox) 125 mg DAILY PO 12/12/20 09:00 I have reviewed the current psychotropics carefully including drug interactions. Risk benefit ratio favors no change other than as noted in my dictated progress note. Diagnosis: Problems: (1) Dementia, vascular, with depression (2) Dementia, vascular, with delusions (3) Dementia in Alzheimer's disease with depression (4) Dementia in Alzheimer's disease with delusions (5) Major neurocognitive disorder (6) Dementia in [place]'s disease with behavioral disturbance (7) Impulse control disorder, unspecified (8) Anxiety disorder, unspecified DIONICIO RENEE MD Dec 12, 2020 06:55
[2020-12-12] MEDS: LORazepam 0.5 MG TABLET PO SCH (09:22)
[2020-12-12] MEDS: ASPIRIN ENTERIC COATED 81 MG TABLET.DR. PO SCH (09:22)
[2020-12-12] MEDS: MULTIVITAMIN with MINERAL TABLET. PO SCH (09:22)
[2020-12-12] MEDS: LACTOBACILLUS RHAMNOSUS GG 1 CAPSULE. PO SCH (09:22)
[2020-12-12] MEDS: DIVALPROEX 125 MG CAP.SPRINK PO SCH ×2 (09:22→12:14)
--- NOTE | 2020-12-12 14:44 | TX PLAN ---
Interdisciplinary Tx Plan Admission Information Dec 03, 2020 at 22:01 Legal Status (on Admission): Voluntary DPOA/Guardian Name: Tawanna Gallegos Contact Other Contact Name: [facility] Other Contact Allergies: Coded Allergies: No Known Drug Allergies (Unverified , 12/03/20) Diagnoses Primary Diagnosis: Major Neurocognitive D/O, vascular Alzheimer's with delusions, depression and BD. Reasons for Admission: Relation/conflict, Agitated, Combative, Confusion/Disoriented, Poor impulse control, Other Problem in Patient's Words: She's had a pretty rapid decline and concerned it had to do with her fall in September and the moves from units. Additional Admission Comments: According to the intake, pt is combative, hitting, unprovoked periods of agitation, talks about "the children", restless, wandering. Problems Active Problems: agitation wandering restless Inactive Problems: medication compliance Pt Strengths/Limitations Ability for [place]: Poor Cognitive Functioning/Ability: Fair Communication Skills/Ability: Fair Financial Resources: Good Insight/Judgement: Poor Intellectual Ability: Fair Physical Health: Fair Social Skills: Poor Stability in Family: Excellent Stability in School/Work: Poor Verbal Skills: Fair Discharge Criteria Discharge Criteria: No need for close observ., Adequate arrangements @DC, Improved behavior, Improved mood/thought Preliminary Discharge Plan Preliminary DC Plan: Current Living Arrange. Special Precautions Fall Risk: Moderate Initial D/C Plan Pt to return to [facility] once stable. Identified Discharge Needs: Referral for continued psychiatric services Currently Utilized Resources Currently Utilized Resources/P: Primary Care Physician Identified Problems/Hx/Goals Objectives/Short-Term Goals Short Term Goals: Dec. Aggression, Dec. Outbursts, Medication Stabilization, Monitor Med Effects, Promote Coping Skill Short Term Goals in Patient's: n/a Interventions/Frequency Staff Interventions/Frequency&: Psychiatrist to assess pt at least 3x per week for medication management. Social work to assess pt at least 2x per week to identify barriers to care and discharge planning. Nursing to monitor medication effects, behavior modification and completion of 15 minute checks daily. Encourage participation in group activities (if applicable) or 1:1 engagement based off activity dept goals. 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 Pt had to retire early as she started to show the signs and have symptoms of Dementia. Education: Pt graduated the 12th grade. In her 40's pt decided to return to school and received her B.A in Human Resources. Community Follow-up Psychiatry Psychiatrist Treatment Plan Explained Patient/Fisher Mussel had this treatment plan explained to him/her as indicated by the signature below and has been given the opportunity to ask questions and make suggestions: Date: Patient/Fisher Mussel Signature: Status Update Update Pt dtr, Elisabet, participated in tx team via phone. Pt is eating 50% of meals and sleeping on average 5 hours per night. Pt is drowsy this morning and is currently in a wheelchair for safety. Pt did have an unwitnessed fall last night in her room, but no injuries or bruising has been reported. Once pt appears more alert, she will be allowed to get up and walk the floor as usual; nursing staff to keep a close eye on pt gait. Pt is less aggressive but remains confused and disorganized. Pt is medication compliant with medications crushed in food/pudding. Pt will have her last dose of Ativan administered today; furthermore, pt will have her Depakote 125mg QID changed to Depakote 125mg in AM and 375mg at HS (VPA = 66). Pt has a negative UA and KUB was negative, there were no signs that pt has a bladder infection per nursing and the hospitalist report. Pt dtr has requested that the psychiatrist continue to address pt medications once she returns to the facility. NARGIS has an insurance review for tomorrow morning; team request for a minimum of next Wednesday if able to get approved by insurance. NARGIS will update [facility] and continue to work with pt family. CAT HATCH Dec 12, 2020 14:44
[2020-12-12 16:02] VITALS: BP 138/86
[2020-12-12] MEDS: MELATONIN 3 MG TABLET PO SCH (20:19)
[2020-12-12] MEDS ORDERED: DIVALPROEX 125 MG CAP.SPRINK PO ONE (21:00)
--- NOTE | 2020-12-12 22:02 | PDOC ---
Exam Note: Papo Note: Please also refer to the separate dictated note~for this date of service dictated separately.~Patient seen individually. Discussed the patient with Nursing staff reviewed the chart.~Reviewed interim history and current functioning. Reviewed vital signs,~Labs/ Radiology~and current medications noted below. Continue current treatment with the changes noted in the dictated addendum note Assessment: Vital Signs/I&O: Vital Signs Date Time Temp Pulse Resp B/P (MAP) Pulse Ox O2 Delivery O2 Flow Rate FiO2 12/12/20 16:02 97.6 80 16 138/86 (103) 98 Room Air I & O 12/11/20 12/11/20 12/12/20 15:00 23:00 07:00 Intake Total 1000 ml 480 ml 120 ml Balance 1000 ml 480 ml 120 ml Current Medications: Meds: Current Medications Medications (Trade) Dose Ordered Sig/Brandy Route PRN Reason Start Time Stop Time Status Last Admin Dose Admin Acetaminophen (Tylenol) 650 mg PRN Q6HRS PRN PO MILD PAIN / TEMP > 100.3'F 12/03/20 22:15 12/09/20 22:13 Multi-Ingredient Ointment (Analgesic [place]) 1 william PRN QID PRN TP MUSCLE PAIN 12/03/20 22:15 Al Hydroxide/Mg Hydroxide (Mylanta Plus Xs) 15 ml PRN AFTMEALHC PRN PO DYSPEPSIA 12/03/20 22:15 Magnesium Hydroxide (Milk Of Magnesia) 2,400 mg PRN QHS PRN PO CONSTIPATION 12/03/20 22:15 Aspirin (Aspirin Enteric Coated) 81 mg DAILY PO 12/04/20 09:00 12/12/20 09:22 Divalproex Sodium (Depakote Sprinkles) 125 mg BID PO 12/03/20 23:00 12/05/20 13:49 DC 12/05/20 09:41 Donepezil HCl (Aricept) 10 mg HS PO 12/03/20 23:00 12/09/20 18:27 DC 12/08/20 20:31 Lorazepam (Ativan) 0.5 mg BID PO 12/03/20 23:00 12/07/20 16:20 DC 12/07/20 08:27 Lorazepam (Ativan) 0.5 mg PRN Q6HRS PRN PO ANXIETY / AGITATION 12/03/20 22:30 12/06/20 17:03 Memantine (Namenda) 10 mg BID PO 12/03/20 23:00 12/09/20 18:27 DC 12/09/20 08:43 Memantine (Namenda) 10 mg BID PO 12/04/20 09:00 UNV Trazodone HCl (Desyrel) 50 mg HS PO 12/03/20 23:00 12/08/20 18:32 DC 12/07/20 19:57 Non-Formulary Medication (Acetaminophen Er ) 650 mg HS PRN PO FEVER/PAIN 12/03/20 22:15 UNV Vitamin D (Vitamin D3) 50,000 unit WEEKLY PO 12/10/20 09:00 12/10/20 09:01 Fluvoxamine Maleate (Luvox) 75 mg DAILY PO 12/04/20 09:00 12/05/20 18:55 DC 12/05/20 09:41 Lactobacillus Rhamnosus (Culturelle) 1 cap DAILY PO 12/04/20 09:00 12/12/20 09:22 Cetirizine HCl (ZyrTEC) 10 mg PRN DAILY PRN PO ALLERGIES 12/03/20 22:45 Melatonin (Melatonin) 4.5 mg HS PO 12/03/20 23:00 12/12/20 20:19 Multivitamins/ Calcium (Thera-M Plus) 1 tab DAILY PO 12/04/20 09:00 12/12/20 09:22 Divalproex Sodium (Depakote Sprinkles) 125 mg 0900,1300,1700,2100 PO 12/05/20 14:00 12/12/20 15:15 DC 12/12/20 12:14 Fluvoxamine Maleate (Luvox) 100 mg DAILY PO 12/06/20 09:00 12/11/20 17:12 DC 12/11/20 08:37 Lorazepam (Ativan) 0.25 mg BID PO 12/07/20 21:00 12/11/20 23:50 DC 12/11/20 20:46 Lorazepam (Ativan) 0.25 mg DAILY PO 12/12/20 09:00 12/16/20 16:00 12/12/20 09:22 Trazodone HCl (Desyrel) 50 mg PRN QHS PRN PO INSOMNIA 12/08/20 18:30 Fluvoxamine Maleate (Luvox) 125 mg DAILY PO 12/12/20 09:00 12/12/20 09:22 Divalproex Sodium (Depakote Sprinkles) 125 mg DAILY PO 12/13/20 09:00 Divalproex Sodium (Depakote Sprinkles) 250 mg QHS ONCE PO 12/12/20 21:00 12/12/20 21:01 DC 12/12/20 20:22 Divalproex Sodium (Depakote Sprinkles) 375 mg QHS PO 12/13/20 21:00 Current Medications Medications (Trade) Dose Ordered Sig/Brandy Route PRN Reason Start Time Stop Time Status Last Admin Dose Admin Lorazepam (Ativan) 0.25 mg DAILY PO 12/12/20 09:00 12/16/20 16:00 12/12/20 09:22 Fluvoxamine Maleate (Luvox) 125 mg DAILY PO 12/12/20 09:00 12/12/20 09:22 Divalproex Sodium (Depakote Sprinkles) 250 mg QHS ONCE PO 12/12/20 21:00 12/12/20 21:01 DC 12/12/20 20:22 I have reviewed the current psychotropics carefully including drug interactions. Risk benefit ratio favors no change other than as noted in my dictated progress note. Diagnosis: Problems: (1) Dementia, vascular, with depression (2) Dementia, vascular, with delusions (3) Dementia in Alzheimer's disease with depression (4) Dementia in Alzheimer's disease with delusions (5) Major neurocognitive disorder (6) Dementia in [place]'s disease with behavioral disturbance (7) Impulse control disorder, unspecified (8) Anxiety disorder, unspecified DIONICIO RENEE MD Dec 12, 2020 22:02
[2020-12-13 05:42] VITALS: BP 119/77
[2020-12-13] MEDS: LACTOBACILLUS RHAMNOSUS GG 1 CAPSULE. PO SCH (08:24)
[2020-12-13] MEDS: LORazepam 0.5 MG TABLET PO SCH (08:24)
[2020-12-13] MEDS: ASPIRIN ENTERIC COATED 81 MG TABLET.DR. PO SCH (08:25)
[2020-12-13] MEDS: MULTIVITAMIN with MINERAL TABLET. PO SCH (08:25)
[2020-12-13] MEDS: DIVALPROEX 125 MG CAP.SPRINK PO SCH ×2 (08:28→20:17)
[2020-12-13 16:17] VITALS: BP 100/77
[2020-12-13 17:16] LABS: BILIRUBIN,URINE SMALL (NEG); CLARITY,URINE HAZY; COLOR,URINE YELLOW; GLUCOSE,URINE NEG (NEG); NITRITE,URINE NEG (NEG)
[2020-12-13 17:17] LABS: BACTERIA,URINE MANY /HPF (0-FEW); RBC,URINE 0 /HPF (0-2); SQUAMOUS EPITHELIAL CELL,UR OCC /LPF
[2020-12-13] MEDS: MELATONIN 3 MG TABLET PO SCH (20:17)
--- NOTE | 2020-12-13 21:58 | PDOC ---
Exam Note: Papo Note: Please also refer to the separate dictated note~for this date of service dictated separately.~Patient seen individually. Discussed the patient with Nursing staff reviewed the chart.~Reviewed interim history and current functioning. Reviewed vital signs,~Labs/ Radiology~and current medications noted below. Continue current treatment with the changes noted in the dictated addendum note Assessment: Vital Signs/I&O: Vital Signs Date Time Temp Pulse Resp B/P (MAP) Pulse Ox O2 Delivery O2 Flow Rate FiO2 12/13/20 16:17 98.0 75 16 100/77 (85) 98 Room Air I & O 12/12/20 12/12/20 12/13/20 15:00 23:00 07:00 Intake Total 480 ml 360 ml Balance 480 ml 360 ml Labs: Laboratory Tests Test 12/13/20 17:00 Urine Collection Type Unknown Urine Color Yellow Urine Clarity Hazy Urine pH 6.5 Urine Specific [place] 1.025 Urine Protein Neg (NEG-TRACE) Urine Glucose (UA) Neg mg/dL (NEG) Urine Ketones (Stick) 40 mg/dL (NEG) Urine Blood Neg (NEG) Urine Nitrite Neg (NEG) Urine Bilirubin Small (NEG) Urine Urobilinogen Dipstick 1.0 mg/dL (0.2 mg/dL) Urine Leukocyte Esterase Small (NEG) Urine RBC 0 /HPF (0-2) Urine WBC 11-20 /HPF (0-4) Urine Squamous Epithelial Cells Occ /LPF Urine Bacteria Many /HPF (0-FEW) Current Medications: Meds: Laboratory Tests Test 12/13/20 17:00 Urine Collection Type Unknown Urine Color Yellow Urine Clarity Hazy Urine pH 6.5 Urine Specific [place] 1.025 Urine Protein Neg Urine Glucose (UA) Neg mg/dL Urine Ketones (Stick) 40 mg/dL Urine Blood Neg Urine Nitrite Neg Urine Bilirubin Small Urine Urobilinogen Dipstick 1.0 mg/dL Urine Leukocyte Esterase Small Urine RBC 0 /HPF Urine WBC 11-20 /HPF Urine Squamous Epithelial Cells Occ /LPF Urine Bacteria Many /HPF Current Medications Medications (Trade) Dose Ordered Sig/Brandy Route PRN Reason Start Time Stop Time Status Last Admin Dose Admin Acetaminophen (Tylenol) 650 mg PRN Q6HRS PRN PO MILD PAIN / TEMP > 100.3'F 12/03/20 22:15 12/09/20 22:13 Multi-Ingredient Ointment (Analgesic [place]) 1 william PRN QID PRN TP MUSCLE PAIN 12/03/20 22:15 Al Hydroxide/Mg Hydroxide (Mylanta Plus Xs) 15 ml PRN AFTMEALHC PRN PO DYSPEPSIA 12/03/20 22:15 Magnesium Hydroxide (Milk Of Magnesia) 2,400 mg PRN QHS PRN PO CONSTIPATION 12/03/20 22:15 Aspirin (Aspirin Enteric Coated) 81 mg DAILY PO 12/04/20 09:00 12/13/20 08:25 Divalproex Sodium (Depakote Sprinkles) 125 mg BID PO 12/03/20 23:00 12/05/20 13:49 DC 12/05/20 09:41 Donepezil HCl (Aricept) 10 mg HS PO 12/03/20 23:00 12/09/20 18:27 DC 12/08/20 20:31 Lorazepam (Ativan) 0.5 mg BID PO 12/03/20 23:00 12/07/20 16:20 DC 12/07/20 08:27 Lorazepam (Ativan) 0.5 mg PRN Q6HRS PRN PO ANXIETY / AGITATION 12/03/20 22:30 12/06/20 17:03 Memantine (Namenda) 10 mg BID PO 12/03/20 23:00 12/09/20 18:27 DC 12/09/20 08:43 Memantine (Namenda) 10 mg BID PO 12/04/20 09:00 UNV Trazodone HCl (Desyrel) 50 mg HS PO 12/03/20 23:00 12/08/20 18:32 DC 12/07/20 19:57 Non-Formulary Medication (Acetaminophen Er ) 650 mg HS PRN PO FEVER/PAIN 12/03/20 22:15 UNV Vitamin D (Vitamin D3) 50,000 unit WEEKLY PO 12/10/20 09:00 12/10/20 09:01 Fluvoxamine Maleate (Luvox) 75 mg DAILY PO 12/04/20 09:00 12/05/20 18:55 DC 12/05/20 09:41 Lactobacillus Rhamnosus (Culturelle) 1 cap DAILY PO 12/04/20 09:00 12/13/20 08:24 Cetirizine HCl (ZyrTEC) 10 mg PRN DAILY PRN PO ALLERGIES 12/03/20 22:45 Melatonin (Melatonin) 4.5 mg HS PO 12/03/20 23:00 12/13/20 20:17 Multivitamins/ Calcium (Thera-M Plus) 1 tab DAILY PO 12/04/20 09:00 12/13/20 08:25 Divalproex Sodium (Depakote Sprinkles) 125 mg 0900,1300,1700,2100 PO 12/05/20 14:00 12/12/20 15:15 DC 12/12/20 12:14 Fluvoxamine Maleate (Luvox) 100 mg DAILY PO 12/06/20 09:00 12/11/20 17:12 DC 12/11/20 08:37 Lorazepam (Ativan) 0.25 mg BID PO 12/07/20 21:00 12/11/20 23:50 DC 12/11/20 20:46 Lorazepam (Ativan) 0.25 mg DAILY PO 12/12/20 09:00 12/16/20 16:00 12/13/20 08:24 Trazodone HCl (Desyrel) 50 mg PRN QHS PRN PO INSOMNIA 12/08/20 18:30 Fluvoxamine Maleate (Luvox) 125 mg DAILY PO 12/12/20 09:00 12/13/20 08:25 Divalproex Sodium (Depakote Sprinkles) 125 mg DAILY PO 12/13/20 09:00 12/13/20 08:28 Divalproex Sodium (Depakote Sprinkles) 250 mg QHS ONCE PO 12/12/20 21:00 12/12/20 21:01 DC 12/12/20 20:22 Divalproex Sodium (Depakote Sprinkles) 375 mg QHS PO 12/13/20 21:00 12/13/20 20:17 Current Medications Medications (Trade) Dose Ordered Sig/Brandy Route PRN Reason Start Time Stop Time Status Last Admin Dose Admin Divalproex Sodium (Depakote Sprinkles) 125 mg DAILY PO 12/13/20 09:00 12/13/20 08:28 Divalproex Sodium (Depakote Sprinkles) 375 mg QHS PO 12/13/20 21:00 12/13/20 20:17 I have reviewed the current psychotropics carefully including drug interactions. Risk benefit ratio favors no change other than as noted in my dictated progress note. Diagnosis: Problems: (1) Dementia, vascular, with depression (2) Dementia, vascular, with delusions (3) Dementia in Alzheimer's disease with depression (4) Dementia in Alzheimer's disease with delusions (5) Major neurocognitive disorder (6) Dementia in [place]'s disease with behavioral disturbance (7) Impulse control disorder, unspecified (8) Anxiety disorder, unspecified DIONICIO RENEE MD Dec 13, 2020 21:58
[2020-12-14 05:58] VITALS: BP 128/77
--- NOTE | 2020-12-14 07:16 | PDOC ---
Exam Note: Papo Note: This note is a late entry for 12/12/2020 covers elements not covered in my initial note. Subjective: The patient was reviewed in the morning of 12/12/2020 for a treatment team meeting with Leonela Blake, Geeta Tolbert (social service manager), Dasha, activity therapy and Wyatt NICOLE discussed and reviewed the chart. The patient slept 7 hours previous night. Patients daughter Elisabet attended the conference. Appetite 50%. Overall the patient has been somewhat sedated during the day but behaviors are much improved, less impulsive. We had lengthy discussion about daughters concerns about daytime sedation. The daytime Depakote Sprinkle 125 mg 4 times a day could be contributing to this and we will change it to 125 mg a.m. and 375 mg h.s. to help with the daytime sedation. We will repeat UA since the specimen was contaminated. Review of Systems: No CV, , pulmonary, eye, ENT system symptoms on review. Mental Status Exam: The patient is oriented to herself. Insight and judgment, recent and remote memory, attention and concentration is poor consistent with her diagnoses. Laboratory Data: Reviewed. Impression: Major neurocognitive disorder Alzheimer vascular with delusion, dep ression, behavioral disturbance. Anxiety disorder unspecified. Impulse control disorder unspecified. Plan: Continue rest of the psychotropics unchanged. We will change the Depakote Sprinkle 125 mg 4 times a day to 125 mg a.m. and 375 mg h.s. Follow l abs level. Assessment: Vital Signs/I&O: Vital Signs Date Time Temp Pulse Resp B/P (MAP) Pulse Ox O2 Delivery O2 Flow Rate FiO2 12/14/20 05:58 97.0 65 16 128/77 (94) 95 Room Air I & O 12/13/20 12/13/20 12/14/20 15:00 23:00 07:00 Intake Total 360 ml 480 ml Balance 360 ml 480 ml Labs: Laboratory Tests Test 12/13/20 17:00 Urine Collection Type Unknown Urine Color Yellow Urine Clarity Hazy Urine pH 6.5 Urine Specific [place] 1.025 Urine Protein Neg (NEG-TRACE) Urine Glucose (UA) Neg mg/dL (NEG) Urine Ketones (Stick) 40 mg/dL (NEG) Urine Blood Neg (NEG) Urine Nitrite Neg (NEG) Urine Bilirubin Small (NEG) Urine Urobilinogen Dipstick 1.0 mg/dL (0.2 mg/dL) Urine Leukocyte Esterase Small (NEG) Urine RBC 0 /HPF (0-2) Urine WBC 11-20 /HPF (0-4) Urine Squamous Epithelial Cells Occ /LPF Urine Bacteria Many /HPF (0-FEW) Current Medications: Meds: Laboratory Tests Test 12/13/20 17:00 Urine Collection Type Unknown Urine Color Yellow Urine Clarity Hazy Urine pH 6.5 Urine Specific [place] 1.025 Urine Protein Neg Urine Glucose (UA) Neg mg/dL Urine Ketones (Stick) 40 mg/dL Urine Blood Neg Urine Nitrite Neg Urine Bilirubin Small Urine Urobilinogen Dipstick 1.0 mg/dL Urine Leukocyte Esterase Small Urine RBC 0 /HPF Urine WBC 11-20 /HPF Urine Squamous Epithelial Cells Occ /LPF Urine Bacteria Many /HPF Current Medications Medications (Trade) Dose Ordered Sig/Brandy Route PRN Reason Start Time Stop Time Status Last Admin Dose Admin Acetaminophen (Tylenol) 650 mg PRN Q6HRS PRN PO MILD PAIN / TEMP > 100.3'F 12/03/20 22:15 12/09/20 22:13 Multi-Ingredient Ointment (Analgesic [place]) 1 william PRN QID PRN TP MUSCLE PAIN 12/03/20 22:15 Al Hydroxide/Mg Hydroxide (Mylanta Plus Xs) 15 ml PRN AFTMEALHC PRN PO DYSPEPSIA 12/03/20 22:15 Magnesium Hydroxide (Milk Of Magnesia) 2,400 mg PRN QHS PRN PO CONSTIPATION 12/03/20 22:15 Aspirin (Aspirin Enteric Coated) 81 mg DAILY PO 12/04/20 09:00 12/13/20 08:25 Divalproex Sodium (Depakote Sprinkles) 125 mg BID PO 12/03/20 23:00 12/05/20 13:49 DC 12/05/20 09:41 Donepezil HCl (Aricept) 10 mg HS PO 12/03/20 23:00 12/09/20 18:27 DC 12/08/20 20:31 Lorazepam (Ativan) 0.5 mg BID PO 12/03/20 23:00 12/07/20 16:20 DC 12/07/20 08:27 Lorazepam (Ativan) 0.5 mg PRN Q6HRS PRN PO ANXIETY / AGITATION 12/03/20 22:30 12/06/20 17:03 Memantine (Namenda) 10 mg BID PO 12/03/20 23:00 12/09/20 18:27 DC 12/09/20 08:43 Memantine (Namenda) 10 mg BID PO 12/04/20 09:00 UNV Trazodone HCl (Desyrel) 50 mg HS PO 12/03/20 23:00 12/08/20 18:32 DC 12/07/20 19:57 Non-Formulary Medication (Acetaminophen Er ) 650 mg HS PRN PO FEVER/PAIN 12/03/20 22:15 UNV Vitamin D (Vitamin D3) 50,000 unit WEEKLY PO 12/10/20 09:00 12/10/20 09:01 Fluvoxamine Maleate (Luvox) 75 mg DAILY PO 12/04/20 09:00 12/05/20 18:55 DC 12/05/20 09:41 Lactobacillus Rhamnosus (Culturelle) 1 cap DAILY PO 12/04/20 09:00 12/13/20 08:24 Cetirizine HCl (ZyrTEC) 10 mg PRN DAILY PRN PO ALLERGIES 12/03/20 22:45 Melatonin (Melatonin) 4.5 mg HS PO 12/03/20 23:00 12/13/20 20:17 Multivitamins/ Calcium (Thera-M Plus) 1 tab DAILY PO 12/04/20 09:00 12/13/20 08:25 Divalproex Sodium (Depakote Sprinkles) 125 mg 0900,1300,1700,2100 PO 12/05/20 14:00 12/12/20 15:15 DC 12/12/20 12:14 Fluvoxamine Maleate (Luvox) 100 mg DAILY PO 12/06/20 09:00 12/11/20 17:12 DC 12/11/20 08:37 Lorazepam (Ativan) 0.25 mg BID PO 12/07/20 21:00 12/11/20 23:50 DC 12/11/20 20:46 Lorazepam (Ativan) 0.25 mg DAILY PO 12/12/20 09:00 12/16/20 16:00 12/13/20 08:24 Trazodone HCl (Desyrel) 50 mg PRN QHS PRN PO INSOMNIA 12/08/20 18:30 Fluvoxamine Maleate (Luvox) 125 mg DAILY PO 12/12/20 09:00 12/13/20 08:25 Divalproex Sodium (Depakote Sprinkles) 125 mg DAILY PO 12/13/20 09:00 12/13/20 08:28 Divalproex Sodium (Depakote Sprinkles) 250 mg QHS ONCE PO 12/12/20 21:00 12/12/20 21:01 DC 12/12/20 20:22 Divalproex Sodium (Depakote Sprinkles) 375 mg QHS PO 12/13/20 21:00 12/13/20 20:17 Current Medications Medications (Trade) Dose Ordered Sig/Brandy Route PRN Reason Start Time Stop Time Status Last Admin Dose Admin Divalproex Sodium (Depakote Sprinkles) 125 mg DAILY PO 12/13/20 09:00 12/13/20 08:28 Divalproex Sodium (Depakote Sprinkles) 375 mg QHS PO 12/13/20 21:00 12/13/20 20:17 I have reviewed the current psychotropics carefully including drug interactions. Risk benefit ratio favors no change other than as noted in my dictated progress note. Diagnosis: Problems: (1) Dementia, vascular, with depression (2) Dementia, vascular, with delusions (3) Dementia in Alzheimer's disease with depression (4) Dementia in Alzheimer's disease with delusions (5) Major neurocognitive disorder (6) Dementia in [place]'s disease with behavioral disturbance (7) Impulse control disorder, unspecified (8) Anxiety disorder, unspecified DIONICIO RENEE MD Dec 14, 2020 07:16
--- NOTE | 2020-12-14 07:32 | PDOC ---
Exam Note: Papo Note: This note is a late entry for 12/13/2020 covers elements not covered in my initial note. Subjective: The patient was seen individually in the evening of 12/13/2020 with Wyatt NICOLE, discussed and reviewed the chart. The patient slept 8-1/4 hours previous night. I met with the patient in the cafeteria. She is awake, alert, and oriented to just to herself. Review of Systems: No CV, , pulmonary, eye, ENT system symptoms on review. Reliability poor. Mental Status Exam: The patient is oriented to herself. Insight and judgment, recent and remote memory, attention and concentration is poor consistent with her diagnoses. Laboratory Data: Reviewed. Impression: Major neurocognitive disorder Alzheimer vascular with delusion, depression, behavioral disturbance. Anxiety disorder unspecified. Impulse control disorder unspecified. Plan: Continue rest of the psychotropics unchanged. We have changed the bulk of the Depakote to the night time to help with daytime sedation. It may take a few days for it to even out. I have received a message that daughter wants to speak with me and I will try and give her a call in the next day or so. Assessment: Vital Signs/I&O: Vital Signs Date Time Temp Pulse Resp B/P (MAP) Pulse Ox O2 Delivery O2 Flow Rate FiO2 12/14/20 05:58 97.0 65 16 128/77 (94) 95 Room Air I & O 12/13/20 12/13/20 12/14/20 15:00 23:00 07:00 Intake Total 360 ml 480 ml Balance 360 ml 480 ml Labs: Laboratory Tests Test 12/13/20 17:00 Urine Collection Type Unknown Urine Color Yellow Urine Clarity Hazy Urine pH 6.5 Urine Specific [place] 1.025 Urine Protein Neg (NEG-TRACE) Urine Glucose (UA) Neg mg/dL (NEG) Urine Ketones (Stick) 40 mg/dL (NEG) Urine Blood Neg (NEG) Urine Nitrite Neg (NEG) Urine Bilirubin Small (NEG) Urine Urobilinogen Dipstick 1.0 mg/dL (0.2 mg/dL) Urine Leukocyte Esterase Small (NEG) Urine RBC 0 /HPF (0-2) Urine WBC 11-20 /HPF (0-4) Urine Squamous Epithelial Cells Occ /LPF Urine Bacteria Many /HPF (0-FEW) Current Medications: Meds: Laboratory Tests Test 12/13/20 17:00 Urine Collection Type Unknown Urine Color Yellow Urine Clarity Hazy Urine pH 6.5 Urine Specific [place] 1.025 Urine Protein Neg Urine Glucose (UA) Neg mg/dL Urine Ketones (Stick) 40 mg/dL Urine Blood Neg Urine Nitrite Neg Urine Bilirubin Small Urine Urobilinogen Dipstick 1.0 mg/dL Urine Leukocyte Esterase Small Urine RBC 0 /HPF Urine WBC 11-20 /HPF Urine Squamous Epithelial Cells Occ /LPF Urine Bacteria Many /HPF Current Medications Medications (Trade) Dose Ordered Sig/Brandy Route PRN Reason Start Time Stop Time Status Last Admin Dose Admin Acetaminophen (Tylenol) 650 mg PRN Q6HRS PRN PO MILD PAIN / TEMP > 100.3'F 12/03/20 22:15 12/09/20 22:13 Multi-Ingredient Ointment (Analgesic [place]) 1 william PRN QID PRN TP MUSCLE PAIN 12/03/20 22:15 Al Hydroxide/Mg Hydroxide (Mylanta Plus Xs) 15 ml PRN AFTMEALHC PRN PO DYSPEPSIA 12/03/20 22:15 Magnesium Hydroxide (Milk Of Magnesia) 2,400 mg PRN QHS PRN PO CONSTIPATION 12/03/20 22:15 Aspirin (Aspirin Enteric Coated) 81 mg DAILY PO 12/04/20 09:00 12/13/20 08:25 Divalproex Sodium (Depakote Sprinkles) 125 mg BID PO 12/03/20 23:00 12/05/20 13:49 DC 12/05/20 09:41 Donepezil HCl (Aricept) 10 mg HS PO 12/03/20 23:00 12/09/20 18:27 DC 12/08/20 20:31 Lorazepam (Ativan) 0.5 mg BID PO 12/03/20 23:00 12/07/20 16:20 DC 12/07/20 08:27 Lorazepam (Ativan) 0.5 mg PRN Q6HRS PRN PO ANXIETY / AGITATION 12/03/20 22:30 12/06/20 17:03 Memantine (Namenda) 10 mg BID PO 12/03/20 23:00 12/09/20 18:27 DC 12/09/20 08:43 Memantine (Namenda) 10 mg BID PO 12/04/20 09:00 UNV Trazodone HCl (Desyrel) 50 mg HS PO 12/03/20 23:00 12/08/20 18:32 DC 12/07/20 19:57 Non-Formulary Medication (Acetaminophen Er ) 650 mg HS PRN PO FEVER/PAIN 12/03/20 22:15 UNV Vitamin D (Vitamin D3) 50,000 unit WEEKLY PO 12/10/20 09:00 12/10/20 09:01 Fluvoxamine Maleate (Luvox) 75 mg DAILY PO 12/04/20 09:00 12/05/20 18:55 DC 12/05/20 09:41 Lactobacillus Rhamnosus (Culturelle) 1 cap DAILY PO 12/04/20 09:00 12/13/20 08:24 Cetirizine HCl (ZyrTEC) 10 mg PRN DAILY PRN PO ALLERGIES 12/03/20 22:45 Melatonin (Melatonin) 4.5 mg HS PO 12/03/20 23:00 12/13/20 20:17 Multivitamins/ Calcium (Thera-M Plus) 1 tab DAILY PO 12/04/20 09:00 12/13/20 08:25 Divalproex Sodium (Depakote Sprinkles) 125 mg 0900,1300,1700,2100 PO 12/05/20 14:00 12/12/20 15:15 DC 12/12/20 12:14 Fluvoxamine Maleate (Luvox) 100 mg DAILY PO 12/06/20 09:00 12/11/20 17:12 DC 12/11/20 08:37 Lorazepam (Ativan) 0.25 mg BID PO 12/07/20 21:00 12/11/20 23:50 DC 12/11/20 20:46 Lorazepam (Ativan) 0.25 mg DAILY PO 12/12/20 09:00 12/16/20 16:00 12/13/20 08:24 Trazodone HCl (Desyrel) 50 mg PRN QHS PRN PO INSOMNIA 12/08/20 18:30 Fluvoxamine Maleate (Luvox) 125 mg DAILY PO 12/12/20 09:00 12/13/20 08:25 Divalproex Sodium (Depakote Sprinkles) 125 mg DAILY PO 12/13/20 09:00 12/13/20 08:28 Divalproex Sodium (Depakote Sprinkles) 250 mg QHS ONCE PO 12/12/20 21:00 12/12/20 21:01 DC 12/12/20 20:22 Divalproex Sodium (Depakote Sprinkles) 375 mg QHS PO 12/13/20 21:00 12/13/20 20:17 Current Medications Medications (Trade) Dose Ordered Sig/Brandy Route PRN Reason Start Time Stop Time Status Last Admin Dose Admin Divalproex Sodium (Depakote Sprinkles) 125 mg DAILY PO 12/13/20 09:00 12/13/20 08:28 Divalproex Sodium (Depakote Sprinkles) 375 mg QHS PO 12/13/20 21:00 12/13/20 20:17 I have reviewed the current psychotropics carefully including drug interactions. Risk benefit ratio favors no change other than as noted in my dictated progress note. Diagnosis: Problems: (1) Dementia, vascular, with depression (2) Dementia, vascular, with delusions (3) Dementia in Alzheimer's disease with depression (4) Dementia in Alzheimer's disease with delusions (5) Major neurocognitive disorder (6) Dementia in [place]'s disease with behavioral disturbance (7) Impulse control disorder, unspecified (8) Anxiety disorder, unspecified DIONICIO RENEE MD Dec 14, 2020 07:32
[2020-12-14] MEDS: ASPIRIN ENTERIC COATED 81 MG TABLET.DR. PO SCH (11:57)
[2020-12-14] MEDS: LORazepam 0.5 MG TABLET PO SCH (11:57)
[2020-12-14] MEDS: DIVALPROEX 125 MG CAP.SPRINK PO SCH ×2 (11:57→20:25)
[2020-12-14] MEDS: LACTOBACILLUS RHAMNOSUS GG 1 CAPSULE. PO SCH (11:58)
[2020-12-14] MEDS: MULTIVITAMIN with MINERAL TABLET. PO SCH (11:58)
[2020-12-14 16:17] VITALS: BP 110/75
[2020-12-14] MEDS: MELATONIN 3 MG TABLET PO SCH (20:25)
--- NOTE | 2020-12-14 23:17 | PDOC ---
Exam Note: Papo Note: Please also refer to the separate dictated note~for this date of service dictated separately.~Patient seen individually. Discussed the patient with Nursing staff reviewed the chart.~Reviewed interim history and current functioning. Reviewed vital signs,~Labs/ Radiology~and current medications noted below. Continue current treatment with the changes noted in the dictated addendum note Assessment: Vital Signs/I&O: Vital Signs Date Time Temp Pulse Resp B/P (MAP) Pulse Ox O2 Delivery O2 Flow Rate FiO2 12/14/20 16:17 97.8 79 20 110/75 (87) 98 12/14/20 05:58 Room Air I & O 12/13/20 12/13/20 12/14/20 15:00 23:00 07:00 Intake Total 360 ml 480 ml Balance 360 ml 480 ml Current Medications: Meds: Current Medications Medications (Trade) Dose Ordered Sig/Brandy Route PRN Reason Start Time Stop Time Status Last Admin Dose Admin Acetaminophen (Tylenol) 650 mg PRN Q6HRS PRN PO MILD PAIN / TEMP > 100.3'F 12/03/20 22:15 12/09/20 22:13 Multi-Ingredient Ointment (Analgesic [place]) 1 william PRN QID PRN TP MUSCLE PAIN 12/03/20 22:15 Al Hydroxide/Mg Hydroxide (Mylanta Plus Xs) 15 ml PRN AFTMEALHC PRN PO DYSPEPSIA 12/03/20 22:15 Magnesium Hydroxide (Milk Of Magnesia) 2,400 mg PRN QHS PRN PO CONSTIPATION 12/03/20 22:15 Aspirin (Aspirin Enteric Coated) 81 mg DAILY PO 12/04/20 09:00 12/14/20 11:57 Divalproex Sodium (Depakote Sprinkles) 125 mg BID PO 12/03/20 23:00 12/05/20 13:49 DC 12/05/20 09:41 Donepezil HCl (Aricept) 10 mg HS PO 12/03/20 23:00 12/09/20 18:27 DC 12/08/20 20:31 Lorazepam (Ativan) 0.5 mg BID PO 12/03/20 23:00 12/07/20 16:20 DC 12/07/20 08:27 Lorazepam (Ativan) 0.5 mg PRN Q6HRS PRN PO ANXIETY / AGITATION 12/03/20 22:30 12/06/20 17:03 Memantine (Namenda) 10 mg BID PO 12/03/20 23:00 12/09/20 18:27 DC 12/09/20 08:43 Memantine (Namenda) 10 mg BID PO 12/04/20 09:00 UNV Trazodone HCl (Desyrel) 50 mg HS PO 12/03/20 23:00 12/08/20 18:32 DC 12/07/20 19:57 Non-Formulary Medication (Acetaminophen Er ) 650 mg HS PRN PO FEVER/PAIN 12/03/20 22:15 UNV Vitamin D (Vitamin D3) 50,000 unit WEEKLY PO 12/10/20 09:00 12/10/20 09:01 Fluvoxamine Maleate (Luvox) 75 mg DAILY PO 12/04/20 09:00 12/05/20 18:55 DC 12/05/20 09:41 Lactobacillus Rhamnosus (Culturelle) 1 cap DAILY PO 12/04/20 09:00 12/14/20 11:58 Cetirizine HCl (ZyrTEC) 10 mg PRN DAILY PRN PO ALLERGIES 12/03/20 22:45 Melatonin (Melatonin) 4.5 mg HS PO 12/03/20 23:00 12/14/20 20:25 Multivitamins/ Calcium (Thera-M Plus) 1 tab DAILY PO 12/04/20 09:00 12/14/20 11:58 Divalproex Sodium (Depakote Sprinkles) 125 mg 0900,1300,1700,2100 PO 12/05/20 14:00 12/12/20 15:15 DC 12/12/20 12:14 Fluvoxamine Maleate (Luvox) 100 mg DAILY PO 12/06/20 09:00 12/11/20 17:12 DC 12/11/20 08:37 Lorazepam (Ativan) 0.25 mg BID PO 12/07/20 21:00 12/11/20 23:50 DC 12/11/20 20:46 Lorazepam (Ativan) 0.25 mg DAILY PO 12/12/20 09:00 12/16/20 16:00 12/14/20 11:57 Trazodone HCl (Desyrel) 50 mg PRN QHS PRN PO INSOMNIA 12/08/20 18:30 Fluvoxamine Maleate (Luvox) 125 mg DAILY PO 12/12/20 09:00 12/14/20 11:57 Divalproex Sodium (Depakote Sprinkles) 125 mg DAILY PO 12/13/20 09:00 12/14/20 21:31 DC 12/14/20 11:57 Divalproex Sodium (Depakote Sprinkles) 250 mg QHS ONCE PO 12/12/20 21:00 12/12/20 21:01 DC 12/12/20 20:22 Divalproex Sodium (Depakote Sprinkles) 375 mg QHS PO 12/13/20 21:00 12/14/20 21:31 DC 12/14/20 20:25 Divalproex Sodium (Depakote Sprinkles) 250 mg QHS PO 12/15/20 21:00 I have reviewed the current psychotropics carefully including drug interactions. Risk benefit ratio favors no change other than as noted in my dictated progress note. Diagnosis: Problems: (1) Dementia, vascular, with depression (2) Dementia, vascular, with delusions (3) Dementia in Alzheimer's disease with depression (4) Dementia in Alzheimer's disease with delusions (5) Major neurocognitive disorder (6) Dementia in [place]'s disease with behavioral disturbance (7) Impulse control disorder, unspecified (8) Anxiety disorder, unspecified DIONICIO RENEE MD Dec 14, 2020 23:17
[2020-12-15 06:35] VITALS: BP 117/61
[2020-12-15 07:08] LABS: BASO % 1 % (0-3); EOS # 0.1 x10^3/uL (0.0-0.7); EOS % 2 % (0-3); HEMOGLOBIN 14.5 g/dL (12.0-15.5); LYMPH % 15 % (24-48); MEAN CORPUSCULAR HEMOGLOBIN 30 pg (25-35); MEAN CORPUSCULAR HGB CONC 35 g/dL (31-37); MEAN CORPUSCULAR VOLUME 87 fL (79-100); MONO # 0.6 x10^3/uL (0.0-1.1); MONO % 9 % (0-9); NEUT # 4.8 x10^3uL (1.8-7.7); NEUT % 74 % (31-73); PLATELET COUNT 222 x10^3/uL (140-400); RED BLOOD COUNT 4.81 x10^6/uL (3.50-5.40); RED CELL DISTRIBUTION WIDTH 14.3 % (11.5-14.5); WHITE BLOOD COUNT 6.5 x10^3/uL (4.0-11.0)
[2020-12-15 07:20] LABS: ALBUMIN 3.4 g/dL (3.4-5.0); ALBUMIN/GLOBULIN RATIO 0.9 (1.0-1.7); ALK PHOS 146 U/L (46-116); ALT (SGPT) 25 U/L (14-59); ANION GAP 13 (6-14); AST (SGOT) 17 U/L (15-37); BLOOD UREA NITROGEN 14 mg/dL (7-20); BUN/CREATININE RATIO 16 (6-20); CALCIUM 9.5 mg/dL (8.5-10.1); CARBON DIOXIDE 22 mmol/L (21-32); CHLORIDE 108 mmol/L (98-107); CREATININE 0.9 mg/dL (0.6-1.0); GFR 61.7; GLUCOSE 100 mg/dL (70-99); POTASSIUM 3.9 mmol/L (3.5-5.1); SODIUM 143 mmol/L (136-145); TOTAL BILIRUBIN 0.5 mg/dL (0.2-1.0); TOTAL PROTEIN 7.4 g/dL (6.4-8.2)
[2020-12-15 07:37] LABS: VAL ACID 67 mcg/mL (50-100)
[2020-12-15] MEDS: ACETAMINOPHEN 325 MG TABLET PO PRN (08:15)
[2020-12-15] MEDS: LACTOBACILLUS RHAMNOSUS GG 1 CAPSULE. PO SCH (08:15)
[2020-12-15] MEDS: ASPIRIN ENTERIC COATED 81 MG TABLET.DR. PO SCH (08:15)
[2020-12-15] MEDS: LORazepam 0.5 MG TABLET PO SCH (08:15)
[2020-12-15] MEDS: MULTIVITAMIN with MINERAL TABLET. PO SCH (08:15)
[2020-12-15 15:46] VITALS: BP 100/56
[2020-12-15] MEDS: DIVALPROEX 125 MG CAP.SPRINK PO SCH (20:24)
[2020-12-15] MEDS: MELATONIN 3 MG TABLET PO SCH (20:24)
[2020-12-16 05:57] VITALS: BP 105/67
[2020-12-16] MEDS: ASPIRIN ENTERIC COATED 81 MG TABLET.DR. PO SCH (09:03)
[2020-12-16] MEDS: LACTOBACILLUS RHAMNOSUS GG 1 CAPSULE. PO SCH (09:03)
[2020-12-16] MEDS: LORazepam 0.5 MG TABLET PO SCH (09:03)
[2020-12-16] MEDS: MULTIVITAMIN with MINERAL TABLET. PO SCH (09:03)
--- NOTE | 2020-12-16 09:19 | PDOC ---
Exam Note: Papo Note: This note is a late entry for 12/14/2020 covers elements not covered in my initial note. Subjective: The patient was seen on telehealth rounds in the evening of 12/14/2020 with the nursing staff taking the telehealth camera to each patient, which was on a secure portal, discussed and reviewed the chart with Wyatt NICOLE. The patient slept 6-1/4 hours previous night. She is restless previous evening, slept till somewhat in the morning. UA has reflex to culture, might explain some of her daytime sedation. She has not been aggressive however which is an improvement since we have adjusted her psychotropics including the Depakote. The question is whether the Depakote could be causing some sedation and would split it giving a very small amount in the morning 125 mg most of it at night, 375 mg if sedation is better but again could be explained by the UTI. We will await C&S. I had a message to call the patients daughter Elisabet [phone]. I did give her a call around 8.45 p.m. and talked at length with her including daughters concerns about the patients sedation, pros and cons of reducing the Depakote was stopping it while still awaiting for C&S and possible UTI. This of course will compromise her stability at the group home if we reduce the Depakote too much. Ultimately the sedation should dissipate either with resolution of UTI or gradually over time. Nevertheless after lengthy discussion we agreed to stop the morning Depakote and reduce the evening 375 mg to 250 mg and await the urine C&S. Review of Systems: No CV, , pulmonary, eye, ENT system symptoms on review. Reliability poor. Mental Status Exam: The patient is oriented to herself. Insight and judgment, recent and remote memory, attention and concentration is poor consistent with her diagnoses. Laboratory Data: Reviewed. Impression: Major neurocognitive disorder Alzheimer vascular with delusion, depression, behavioral disturbance. Anxiety disorder unspecified. Impulse control disorder unspecified. Plan: Continue rest of the psychotropics unchanged. I had lengthy discussions about plan and options noted above. Daughter wanted to know if I can be the primary provider for her psychotropic medications back at the group home. I explained to the daughter my role at the group home as a transportation consultant and I would be happy to make recommendations to the patients primary care physician for ultimate implementation. Daughter wanted regular communication via e-mail but for the patients best interest it might be best for all queries to go through the nursing staff including Anamika nurse manager technology at the unit at [facility] so that medical issues could be identified before we address anything psychiatric. Assessment: Vital Signs/I&O: Vital Signs Date Time Temp Pulse Resp B/P (MAP) Pulse Ox O2 Delivery O2 Flow Rate FiO2 12/16/20 05:57 97.2 90 16 105/67 (80) 95 12/15/20 15:46 Room Air I & O 12/15/20 12/15/20 12/16/20 15:00 23:00 07:00 Intake Total 240 ml 0 ml Balance 240 ml 0 ml Current Medications: Meds: Current Medications Medications (Trade) Dose Ordered Sig/Brandy Route PRN Reason Start Time Stop Time Status Last Admin Dose Admin Acetaminophen (Tylenol) 650 mg PRN Q6HRS PRN PO MILD PAIN / TEMP > 100.3'F 12/03/20 22:15 12/15/20 08:15 Multi-Ingredient Ointment (Analgesic [place]) 1 william PRN QID PRN TP MUSCLE PAIN 12/03/20 22:15 Al Hydroxide/Mg Hydroxide (Mylanta Plus Xs) 15 ml PRN AFTMEALHC PRN PO DYSPEPSIA 12/03/20 22:15 Magnesium Hydroxide (Milk Of Magnesia) 2,400 mg PRN QHS PRN PO CONSTIPATION 12/03/20 22:15 Aspirin (Aspirin Enteric Coated) 81 mg DAILY PO 12/04/20 09:00 12/16/20 09:03 Divalproex Sodium (Depakote Sprinkles) 125 mg BID PO 12/03/20 23:00 12/05/20 13:49 DC 12/05/20 09:41 Donepezil HCl (Aricept) 10 mg HS PO 12/03/20 23:00 12/09/20 18:27 DC 12/08/20 20:31 Lorazepam (Ativan) 0.5 mg BID PO 12/03/20 23:00 12/07/20 16:20 DC 12/07/20 08:27 Lorazepam (Ativan) 0.5 mg PRN Q6HRS PRN PO ANXIETY / AGITATION 12/03/20 22:30 12/06/20 17:03 Memantine (Namenda) 10 mg BID PO 12/03/20 23:00 12/09/20 18:27 DC 12/09/20 08:43 Memantine (Namenda) 10 mg BID PO 12/04/20 09:00 UNV Trazodone HCl (Desyrel) 50 mg HS PO 12/03/20 23:00 12/08/20 18:32 DC 12/07/20 19:57 Non-Formulary Medication (Acetaminophen Er ) 650 mg HS PRN PO FEVER/PAIN 12/03/20 22:15 UNV Vitamin D (Vitamin D3) 50,000 unit WEEKLY PO 12/10/20 09:00 12/10/20 09:01 Fluvoxamine Maleate (Luvox) 75 mg DAILY PO 12/04/20 09:00 12/05/20 18:55 DC 12/05/20 09:41 Lactobacillus Rhamnosus (Culturelle) 1 cap DAILY PO 12/04/20 09:00 12/16/20 09:03 Cetirizine HCl (ZyrTEC) 10 mg PRN DAILY PRN PO ALLERGIES 12/03/20 22:45 Melatonin (Melatonin) 4.5 mg HS PO 12/03/20 23:00 12/15/20 20:24 Multivitamins/ Calcium (Thera-M Plus) 1 tab DAILY PO 12/04/20 09:00 12/16/20 09:03 Divalproex Sodium (Depakote Sprinkles) 125 mg 0900,1300,1700,2100 PO 12/05/20 14:00 12/12/20 15:15 DC 12/12/20 12:14 Fluvoxamine Maleate (Luvox) 100 mg DAILY PO 12/06/20 09:00 12/11/20 17:12 DC 12/11/20 08:37 Lorazepam (Ativan) 0.25 mg BID PO 12/07/20 21:00 12/11/20 23:50 DC 12/11/20 20:46 Lorazepam (Ativan) 0.25 mg DAILY PO 12/12/20 09:00 12/16/20 16:00 12/16/20 09:03 Trazodone HCl (Desyrel) 50 mg PRN QHS PRN PO INSOMNIA 12/08/20 18:30 Fluvoxamine Maleate (Luvox) 125 mg DAILY PO 12/12/20 09:00 12/16/20 09:03 Divalproex Sodium (Depakote Sprinkles) 125 mg DAILY PO 12/13/20 09:00 12/14/20 21:31 DC 12/14/20 11:57 Divalproex Sodium (Depakote Sprinkles) 250 mg QHS ONCE PO 12/12/20 21:00 12/12/20 21:01 DC 12/12/20 20:22 Divalproex Sodium (Depakote Sprinkles) 375 mg QHS PO 12/13/20 21:00 12/14/20 21:31 DC 12/14/20 20:25 Divalproex Sodium (Depakote Sprinkles) 250 mg QHS PO 12/15/20 21:00 12/15/20 20:24 Current Medications Medications (Trade) Dose Ordered Sig/Brandy Route PRN Reason Start Time Stop Time Status Last Admin Dose Admin Divalproex Sodium (Depakote Sprinkles) 250 mg QHS PO 12/15/20 21:00 12/15/20 20:24 I have reviewed the current psychotropics carefully including drug interactions. Risk benefit ratio favors no change other than as noted in my dictated progress note. Diagnosis: Problems: (1) Dementia, vascular, with depression (2) Dementia, vascular, with delusions (3) Dementia in Alzheimer's disease with depression (4) Dementia in Alzheimer's disease with delusions (5) Major neurocognitive disorder (6) Dementia in [place]'s disease with behavioral disturbance (7) Impulse control disorder, unspecified (8) Anxiety disorder, unspecified DIONICIO RENEE MD Dec 16, 2020 09:19
[2020-12-16 15:40] VITALS: BP 95/63
[2020-12-16] MEDS: CEPHALEXIN 250 MG CAPSULE PO SCH ×2 (15:56→19:49)
[2020-12-16] MEDS: DIVALPROEX 125 MG CAP.SPRINK PO SCH (19:48)
[2020-12-16] MEDS: MELATONIN 3 MG TABLET PO SCH (19:48)
--- NOTE | 2020-12-16 22:06 | PDOC ---
Exam Note: Papo Note: Please also refer to the separate dictated note~for this date of service dictated separately.~Patient seen individually. Discussed the patient with Nursing staff reviewed the chart.~Reviewed interim history and current functioning. Reviewed vital signs,~Labs/ Radiology~and current medications noted below. Continue current treatment with the changes noted in the dictated addendum note Assessment: Vital Signs/I&O: Vital Signs Date Time Temp Pulse Resp B/P (MAP) Pulse Ox O2 Delivery O2 Flow Rate FiO2 12/16/20 15:40 97.3 85 16 95/63 (74) 95 12/15/20 15:46 Room Air I & O 12/15/20 12/15/20 12/16/20 15:00 23:00 07:00 Intake Total 240 ml 0 ml Balance 240 ml 0 ml Current Medications: Meds: Current Medications Medications (Trade) Dose Ordered Sig/Brandy Route PRN Reason Start Time Stop Time Status Last Admin Dose Admin Acetaminophen (Tylenol) 650 mg PRN Q6HRS PRN PO MILD PAIN / TEMP > 100.3'F 12/03/20 22:15 12/15/20 08:15 Multi-Ingredient Ointment (Analgesic [place]) 1 william PRN QID PRN TP MUSCLE PAIN 12/03/20 22:15 Al Hydroxide/Mg Hydroxide (Mylanta Plus Xs) 15 ml PRN AFTMEALHC PRN PO DYSPEPSIA 12/03/20 22:15 Magnesium Hydroxide (Milk Of Magnesia) 2,400 mg PRN QHS PRN PO CONSTIPATION 12/03/20 22:15 Aspirin (Aspirin Enteric Coated) 81 mg DAILY PO 12/04/20 09:00 12/16/20 09:03 Divalproex Sodium (Depakote Sprinkles) 125 mg BID PO 12/03/20 23:00 12/05/20 13:49 DC 12/05/20 09:41 Donepezil HCl (Aricept) 10 mg HS PO 12/03/20 23:00 12/09/20 18:27 DC 12/08/20 20:31 Lorazepam (Ativan) 0.5 mg BID PO 12/03/20 23:00 12/07/20 16:20 DC 12/07/20 08:27 Lorazepam (Ativan) 0.5 mg PRN Q6HRS PRN PO ANXIETY / AGITATION 12/03/20 22:30 12/06/20 17:03 Memantine (Namenda) 10 mg BID PO 12/03/20 23:00 12/09/20 18:27 DC 12/09/20 08:43 Memantine (Namenda) 10 mg BID PO 12/04/20 09:00 UNV Trazodone HCl (Desyrel) 50 mg HS PO 12/03/20 23:00 12/08/20 18:32 DC 12/07/20 19:57 Non-Formulary Medication (Acetaminophen Er ) 650 mg HS PRN PO FEVER/PAIN 12/03/20 22:15 UNV Vitamin D (Vitamin D3) 50,000 unit WEEKLY PO 12/10/20 09:00 12/10/20 09:01 Fluvoxamine Maleate (Luvox) 75 mg DAILY PO 12/04/20 09:00 12/05/20 18:55 DC 12/05/20 09:41 Lactobacillus Rhamnosus (Culturelle) 1 cap DAILY PO 12/04/20 09:00 12/16/20 09:03 Cetirizine HCl (ZyrTEC) 10 mg PRN DAILY PRN PO ALLERGIES 12/03/20 22:45 Melatonin (Melatonin) 4.5 mg HS PO 12/03/20 23:00 12/16/20 19:48 Multivitamins/ Calcium (Thera-M Plus) 1 tab DAILY PO 12/04/20 09:00 12/16/20 09:03 Divalproex Sodium (Depakote Sprinkles) 125 mg 0900,1300,1700,2100 PO 12/05/20 14:00 12/12/20 15:15 DC 12/12/20 12:14 Fluvoxamine Maleate (Luvox) 100 mg DAILY PO 12/06/20 09:00 12/11/20 17:12 DC 12/11/20 08:37 Lorazepam (Ativan) 0.25 mg BID PO 12/07/20 21:00 12/11/20 23:50 DC 12/11/20 20:46 Lorazepam (Ativan) 0.25 mg DAILY PO 12/12/20 09:00 12/16/20 16:00 DC 12/16/20 09:03 Trazodone HCl (Desyrel) 50 mg PRN QHS PRN PO INSOMNIA 12/08/20 18:30 Fluvoxamine Maleate (Luvox) 125 mg DAILY PO 12/12/20 09:00 12/16/20 09:03 Divalproex Sodium (Depakote Sprinkles) 125 mg DAILY PO 12/13/20 09:00 12/14/20 21:31 DC 12/14/20 11:57 Divalproex Sodium (Depakote Sprinkles) 250 mg QHS ONCE PO 12/12/20 21:00 12/12/20 21:01 DC 12/12/20 20:22 Divalproex Sodium (Depakote Sprinkles) 375 mg QHS PO 12/13/20 21:00 12/14/20 21:31 DC 12/14/20 20:25 Divalproex Sodium (Depakote Sprinkles) 250 mg QHS PO 12/15/20 21:00 12/16/20 19:48 Cephalexin HCl (Keflex) 250 mg TID PO 12/16/20 14:00 12/16/20 19:49 Current Medications Medications (Trade) Dose Ordered Sig/Brandy Route PRN Reason Start Time Stop Time Status Last Admin Dose Admin Cephalexin HCl (Keflex) 250 mg TID PO 12/16/20 14:00 12/16/20 19:49 I have reviewed the current psychotropics carefully including drug interactions. Risk benefit ratio favors no change other than as noted in my dictated progress note. Diagnosis: Problems: (1) Dementia, vascular, with depression (2) Dementia, vascular, with delusions (3) Dementia in Alzheimer's disease with depression (4) Dementia in Alzheimer's disease with delusions (5) Major neurocognitive disorder (6) Dementia in [place]'s disease with behavioral disturbance (7) Impulse control disorder, unspecified (8) Anxiety disorder, unspecified DIONICIO RENEE MD Dec 16, 2020 22:06
[2020-12-17 05:50] VITALS: BP 124/83
[2020-12-17] MEDS: MULTIVITAMIN with MINERAL TABLET. PO SCH (08:29)
[2020-12-17] MEDS: ASPIRIN ENTERIC COATED 81 MG TABLET.DR. PO SCH (08:29)
[2020-12-17] MEDS: CHOLECALCIFEROL (VITAMIN D3) 50,000 UNIT CAPSULE PO SCH (08:29)
[2020-12-17] MEDS: CEPHALEXIN 250 MG CAPSULE PO SCH ×3 (08:29→20:30)
[2020-12-17] MEDS: LACTOBACILLUS RHAMNOSUS GG 1 CAPSULE. PO SCH (08:29)
--- NOTE | 2020-12-17 09:38 | PDOC ---
Exam Note: Papo Note: This note is a late entry for 12/15/2020 covers elements not covered in my initial note. Subjective: The patient was seen on telehealth rounds in the afternoon of 12/15/2020 with the nursing staff taking the telehealth camera to each patient, which was on a secure portal, discussed and reviewed the chart with Chaparro NICOLE. The patient slept 6-3/4 hours previous night. She remains confused, but much less sedated. Review of Systems: No CV, , pulmonary, eye, ENT system symptoms on review. Reliability poor. Mental Status Exam: The patient is oriented to herself. Insight and judgment, recent and remote memory, attention and concentration, and fund of knowledge is poor consistent with her diagnoses. Laboratory Data: Reviewed. Impression: Major neurocognitive disorder Alzheimer vascular with delusion, depression, behavioral disturbance. Anxiety disorder unspecified. Impulse control disorder unspecified. Plan: Continue rest of the psychotropics unchanged. Urine culture has been received. We will defer to Dr. Quinones but may not need antibiotics for this. [facility] staff indicated daughter called today and was going to call again later in the day to follow up on the patients sedation but she has been less sedated. We have reduced the patients Depakote from 500 mg a day to 250 mg a day. She is still not aggressive. Sedation is better. Assessment: Vital Signs/I&O: Vital Signs Date Time Temp Pulse Resp B/P (MAP) Pulse Ox O2 Delivery O2 Flow Rate FiO2 12/17/20 05:50 97.2 71 16 124/83 (97) 98 12/15/20 15:46 Room Air I & O 12/16/20 12/16/20 12/17/20 15:00 23:00 07:00 Intake Total 720 ml 360 ml Balance 720 ml 360 ml Current Medications: Meds: Current Medications Medications (Trade) Dose Ordered Sig/Brandy Route PRN Reason Start Time Stop Time Status Last Admin Dose Admin Acetaminophen (Tylenol) 650 mg PRN Q6HRS PRN PO MILD PAIN / TEMP > 100.3'F 12/03/20 22:15 12/15/20 08:15 Multi-Ingredient Ointment (Analgesic [place]) 1 william PRN QID PRN TP MUSCLE PAIN 12/03/20 22:15 Al Hydroxide/Mg Hydroxide (Mylanta Plus Xs) 15 ml PRN AFTMEALHC PRN PO DYSPEPSIA 12/03/20 22:15 Magnesium Hydroxide (Milk Of Magnesia) 2,400 mg PRN QHS PRN PO CONSTIPATION 12/03/20 22:15 Aspirin (Aspirin Enteric Coated) 81 mg DAILY PO 12/04/20 09:00 12/17/20 08:29 Divalproex Sodium (Depakote Sprinkles) 125 mg BID PO 12/03/20 23:00 12/05/20 13:49 DC 12/05/20 09:41 Donepezil HCl (Aricept) 10 mg HS PO 12/03/20 23:00 12/09/20 18:27 DC 12/08/20 20:31 Lorazepam (Ativan) 0.5 mg BID PO 12/03/20 23:00 12/07/20 16:20 DC 12/07/20 08:27 Lorazepam (Ativan) 0.5 mg PRN Q6HRS PRN PO ANXIETY / AGITATION 12/03/20 22:30 12/06/20 17:03 Memantine (Namenda) 10 mg BID PO 12/03/20 23:00 12/09/20 18:27 DC 12/09/20 08:43 Memantine (Namenda) 10 mg BID PO 12/04/20 09:00 UNV Trazodone HCl (Desyrel) 50 mg HS PO 12/03/20 23:00 12/08/20 18:32 DC 12/07/20 19:57 Non-Formulary Medication (Acetaminophen Er ) 650 mg HS PRN PO FEVER/PAIN 12/03/20 22:15 UNV Vitamin D (Vitamin D3) 50,000 unit WEEKLY PO 12/10/20 09:00 12/17/20 08:29 Fluvoxamine Maleate (Luvox) 75 mg DAILY PO 12/04/20 09:00 12/05/20 18:55 DC 12/05/20 09:41 Lactobacillus Rhamnosus (Culturelle) 1 cap DAILY PO 12/04/20 09:00 12/17/20 08:29 Cetirizine HCl (ZyrTEC) 10 mg PRN DAILY PRN PO ALLERGIES 12/03/20 22:45 Melatonin (Melatonin) 4.5 mg HS PO 12/03/20 23:00 12/16/20 19:48 Multivitamins/ Calcium (Thera-M Plus) 1 tab DAILY PO 12/04/20 09:00 12/17/20 08:29 Divalproex Sodium (Depakote Sprinkles) 125 mg 0900,1300,1700,2100 PO 12/05/20 14:00 12/12/20 15:15 DC 12/12/20 12:14 Fluvoxamine Maleate (Luvox) 100 mg DAILY PO 12/06/20 09:00 12/11/20 17:12 DC 12/11/20 08:37 Lorazepam (Ativan) 0.25 mg BID PO 12/07/20 21:00 12/11/20 23:50 DC 12/11/20 20:46 Lorazepam (Ativan) 0.25 mg DAILY PO 12/12/20 09:00 12/16/20 16:00 DC 12/16/20 09:03 Trazodone HCl (Desyrel) 50 mg PRN QHS PRN PO INSOMNIA 12/08/20 18:30 Fluvoxamine Maleate (Luvox) 125 mg DAILY PO 12/12/20 09:00 12/17/20 08:29 Divalproex Sodium (Depakote Sprinkles) 125 mg DAILY PO 12/13/20 09:00 12/14/20 21:31 DC 12/14/20 11:57 Divalproex Sodium (Depakote Sprinkles) 250 mg QHS ONCE PO 12/12/20 21:00 12/12/20 21:01 DC 12/12/20 20:22 Divalproex Sodium (Depakote Sprinkles) 375 mg QHS PO 12/13/20 21:00 12/14/20 21:31 DC 12/14/20 20:25 Divalproex Sodium (Depakote Sprinkles) 250 mg QHS PO 12/15/20 21:00 12/16/20 19:48 Cephalexin HCl (Keflex) 250 mg TID PO 12/16/20 14:00 12/17/20 08:29 Current Medications Medications (Trade) Dose Ordered Sig/Brandy Route PRN Reason Start Time Stop Time Status Last Admin Dose Admin Cephalexin HCl (Keflex) 250 mg TID PO 12/16/20 14:00 12/17/20 08:29 I have reviewed the current psychotropics carefully including drug interactions. Risk benefit ratio favors no change other than as noted in my dictated progress note. Diagnosis: Problems: (1) Dementia, vascular, with depression (2) Dementia, vascular, with delusions (3) Dementia in Alzheimer's disease with depression (4) Dementia in Alzheimer's disease with delusions (5) Major neurocognitive disorder (6) Dementia in [place]'s disease with behavioral disturbance (7) Impulse control disorder, unspecified (8) Anxiety disorder, unspecified DIONICIO RENEE MD Dec 17, 2020 09:38
--- NOTE | 2020-12-17 10:08 | PDOC ---
Exam Note: Papo Note: This note is a late entry for 12/16/2020 covers elements not covered in my initial note. Subjective: The patient was seen on telehealth rounds in the afternoon of 12/16/2020 with the nursing staff taking the telehealth camera to each patient, which was on a secure portal, discussed and reviewed the chart with Fabien NICOLE. The patient slept 9-1/2 hours previous night. She has been started on Keflex per Dr. Quinones for her UTI. She has been doing better, ambulating a little better herself. Sedation is much improved. She was up all morning. She took slight rest after the lunch. Review of Systems: No CV, , pulmonary, eye, ENT system symptoms on review. Reliability poor. Mental Status Exam: The patient is oriented to herself. Insight and judgment, recent and remote memory, attention and concentration, and fund of knowledge is poor consistent with her diagnoses. Laboratory Data: Reviewed. Impression: Major neurocognitive disorder Alzheimer vascular with delusion, depression, behavioral disturbance. Anxiety disorder unspecified. Impulse control disorder unspecified. Plan: Continue rest of the psychotropics unchanged. Treat the UTI. Adjust further as clinically indicated. Assessment: Vital Signs/I&O: Vital Signs Date Time Temp Pulse Resp B/P (MAP) Pulse Ox O2 Delivery O2 Flow Rate FiO2 12/17/20 05:50 97.2 71 16 124/83 (97) 98 12/15/20 15:46 Room Air I & O 12/16/20 12/16/20 12/17/20 15:00 23:00 07:00 Intake Total 720 ml 360 ml Balance 720 ml 360 ml Current Medications: Meds: Current Medications Medications (Trade) Dose Ordered Sig/Brandy Route PRN Reason Start Time Stop Time Status Last Admin Dose Admin Acetaminophen (Tylenol) 650 mg PRN Q6HRS PRN PO MILD PAIN / TEMP > 100.3'F 12/03/20 22:15 12/15/20 08:15 Multi-Ingredient Ointment (Analgesic [place]) 1 william PRN QID PRN TP MUSCLE PAIN 12/03/20 22:15 Al Hydroxide/Mg Hydroxide (Mylanta Plus Xs) 15 ml PRN AFTMEALHC PRN PO DYSPEPSIA 12/03/20 22:15 Magnesium Hydroxide (Milk Of Magnesia) 2,400 mg PRN QHS PRN PO CONSTIPATION 12/03/20 22:15 Aspirin (Aspirin Enteric Coated) 81 mg DAILY PO 12/04/20 09:00 12/17/20 08:29 Divalproex Sodium (Depakote Sprinkles) 125 mg BID PO 12/03/20 23:00 12/05/20 13:49 DC 12/05/20 09:41 Donepezil HCl (Aricept) 10 mg HS PO 12/03/20 23:00 12/09/20 18:27 DC 12/08/20 20:31 Lorazepam (Ativan) 0.5 mg BID PO 12/03/20 23:00 12/07/20 16:20 DC 12/07/20 08:27 Lorazepam (Ativan) 0.5 mg PRN Q6HRS PRN PO ANXIETY / AGITATION 12/03/20 22:30 12/06/20 17:03 Memantine (Namenda) 10 mg BID PO 12/03/20 23:00 12/09/20 18:27 DC 12/09/20 08:43 Memantine (Namenda) 10 mg BID PO 12/04/20 09:00 UNV Trazodone HCl (Desyrel) 50 mg HS PO 12/03/20 23:00 12/08/20 18:32 DC 12/07/20 19:57 Non-Formulary Medication (Acetaminophen Er ) 650 mg HS PRN PO FEVER/PAIN 12/03/20 22:15 UNV Vitamin D (Vitamin D3) 50,000 unit WEEKLY PO 12/10/20 09:00 12/17/20 08:29 Fluvoxamine Maleate (Luvox) 75 mg DAILY PO 12/04/20 09:00 12/05/20 18:55 DC 12/05/20 09:41 Lactobacillus Rhamnosus (Culturelle) 1 cap DAILY PO 12/04/20 09:00 12/17/20 08:29 Cetirizine HCl (ZyrTEC) 10 mg PRN DAILY PRN PO ALLERGIES 12/03/20 22:45 Melatonin (Melatonin) 4.5 mg HS PO 12/03/20 23:00 12/16/20 19:48 Multivitamins/ Calcium (Thera-M Plus) 1 tab DAILY PO 12/04/20 09:00 12/17/20 08:29 Divalproex Sodium (Depakote Sprinkles) 125 mg 0900,1300,1700,2100 PO 12/05/20 14:00 12/12/20 15:15 DC 12/12/20 12:14 Fluvoxamine Maleate (Luvox) 100 mg DAILY PO 12/06/20 09:00 12/11/20 17:12 DC 12/11/20 08:37 Lorazepam (Ativan) 0.25 mg BID PO 12/07/20 21:00 12/11/20 23:50 DC 12/11/20 20:46 Lorazepam (Ativan) 0.25 mg DAILY PO 12/12/20 09:00 12/16/20 16:00 DC 12/16/20 09:03 Trazodone HCl (Desyrel) 50 mg PRN QHS PRN PO INSOMNIA 12/08/20 18:30 Fluvoxamine Maleate (Luvox) 125 mg DAILY PO 12/12/20 09:00 12/17/20 08:29 Divalproex Sodium (Depakote Sprinkles) 125 mg DAILY PO 12/13/20 09:00 12/14/20 21:31 DC 12/14/20 11:57 Divalproex Sodium (Depakote Sprinkles) 250 mg QHS ONCE PO 12/12/20 21:00 12/12/20 21:01 DC 12/12/20 20:22 Divalproex Sodium (Depakote Sprinkles) 375 mg QHS PO 12/13/20 21:00 12/14/20 21:31 DC 12/14/20 20:25 Divalproex Sodium (Depakote Sprinkles) 250 mg QHS PO 12/15/20 21:00 12/16/20 19:48 Cephalexin HCl (Keflex) 250 mg TID PO 12/16/20 14:00 12/17/20 08:29 Current Medications Medications (Trade) Dose Ordered Sig/Brandy Route PRN Reason Start Time Stop Time Status Last Admin Dose Admin Cephalexin HCl (Keflex) 250 mg TID PO 12/16/20 14:00 12/17/20 08:29 I have reviewed the current psychotropics carefully including drug interactions. Risk benefit ratio favors no change other than as noted in my dictated progress note. Diagnosis: Problems: (1) Dementia, vascular, with depression (2) Dementia, vascular, with delusions (3) Dementia in Alzheimer's disease with depression (4) Dementia in Alzheimer's disease with delusions (5) Major neurocognitive disorder (6) Dementia in [place]'s disease with behavioral disturbance (7) Impulse control disorder, unspecified (8) Anxiety disorder, unspecified DIONICIO RENEE MD Dec 17, 2020 10:08
[2020-12-17 16:01] VITALS: BP 106/57
[2020-12-17] MEDS: DIVALPROEX 125 MG CAP.SPRINK PO SCH (20:30)
[2020-12-17] MEDS: MELATONIN 3 MG TABLET PO SCH (20:31)
--- NOTE | 2020-12-17 22:07 | PDOC ---
Exam Note: Papo Note: Please also refer to the separate dictated note~for this date of service dictated separately.~Patient seen individually. Discussed the patient with Nursing staff reviewed the chart.~Reviewed interim history and current functioning. Reviewed vital signs,~Labs/ Radiology~and current medications noted below. Continue current treatment with the changes noted in the dictated addendum note Assessment: Vital Signs/I&O: Vital Signs Date Time Temp Pulse Resp B/P (MAP) Pulse Ox O2 Delivery O2 Flow Rate FiO2 12/17/20 16:01 97.0 81 18 106/57 (73) 100 12/15/20 15:46 Room Air I & O 12/16/20 12/16/20 12/17/20 15:00 23:00 07:00 Intake Total 720 ml 360 ml Balance 720 ml 360 ml Current Medications: Meds: Current Medications Medications (Trade) Dose Ordered Sig/Brandy Route PRN Reason Start Time Stop Time Status Last Admin Dose Admin Acetaminophen (Tylenol) 650 mg PRN Q6HRS PRN PO MILD PAIN / TEMP > 100.3'F 12/03/20 22:15 12/15/20 08:15 Multi-Ingredient Ointment (Analgesic [place]) 1 william PRN QID PRN TP MUSCLE PAIN 12/03/20 22:15 Al Hydroxide/Mg Hydroxide (Mylanta Plus Xs) 15 ml PRN AFTMEALHC PRN PO DYSPEPSIA 12/03/20 22:15 Magnesium Hydroxide (Milk Of Magnesia) 2,400 mg PRN QHS PRN PO CONSTIPATION 12/03/20 22:15 Aspirin (Aspirin Enteric Coated) 81 mg DAILY PO 12/04/20 09:00 12/17/20 08:29 Divalproex Sodium (Depakote Sprinkles) 125 mg BID PO 12/03/20 23:00 12/05/20 13:49 DC 12/05/20 09:41 Donepezil HCl (Aricept) 10 mg HS PO 12/03/20 23:00 12/09/20 18:27 DC 12/08/20 20:31 Lorazepam (Ativan) 0.5 mg BID PO 12/03/20 23:00 12/07/20 16:20 DC 12/07/20 08:27 Lorazepam (Ativan) 0.5 mg PRN Q6HRS PRN PO ANXIETY / AGITATION 12/03/20 22:30 12/06/20 17:03 Memantine (Namenda) 10 mg BID PO 12/03/20 23:00 12/09/20 18:27 DC 12/09/20 08:43 Memantine (Namenda) 10 mg BID PO 12/04/20 09:00 UNV Trazodone HCl (Desyrel) 50 mg HS PO 12/03/20 23:00 12/08/20 18:32 DC 12/07/20 19:57 Non-Formulary Medication (Acetaminophen Er ) 650 mg HS PRN PO FEVER/PAIN 12/03/20 22:15 UNV Vitamin D (Vitamin D3) 50,000 unit WEEKLY PO 12/10/20 09:00 12/17/20 08:29 Fluvoxamine Maleate (Luvox) 75 mg DAILY PO 12/04/20 09:00 12/05/20 18:55 DC 12/05/20 09:41 Lactobacillus Rhamnosus (Culturelle) 1 cap DAILY PO 12/04/20 09:00 12/17/20 08:29 Cetirizine HCl (ZyrTEC) 10 mg PRN DAILY PRN PO ALLERGIES 12/03/20 22:45 Melatonin (Melatonin) 4.5 mg HS PO 12/03/20 23:00 12/17/20 20:31 Multivitamins/ Calcium (Thera-M Plus) 1 tab DAILY PO 12/04/20 09:00 12/17/20 08:29 Divalproex Sodium (Depakote Sprinkles) 125 mg 0900,1300,1700,2100 PO 12/05/20 14:00 12/12/20 15:15 DC 12/12/20 12:14 Fluvoxamine Maleate (Luvox) 100 mg DAILY PO 12/06/20 09:00 12/11/20 17:12 DC 12/11/20 08:37 Lorazepam (Ativan) 0.25 mg BID PO 12/07/20 21:00 12/11/20 23:50 DC 12/11/20 20:46 Lorazepam (Ativan) 0.25 mg DAILY PO 12/12/20 09:00 12/16/20 16:00 DC 12/16/20 09:03 Trazodone HCl (Desyrel) 50 mg PRN QHS PRN PO INSOMNIA 12/08/20 18:30 Fluvoxamine Maleate (Luvox) 125 mg DAILY PO 12/12/20 09:00 12/17/20 08:29 Divalproex Sodium (Depakote Sprinkles) 125 mg DAILY PO 12/13/20 09:00 12/14/20 21:31 DC 12/14/20 11:57 Divalproex Sodium (Depakote Sprinkles) 250 mg QHS ONCE PO 12/12/20 21:00 12/12/20 21:01 DC 12/12/20 20:22 Divalproex Sodium (Depakote Sprinkles) 375 mg QHS PO 12/13/20 21:00 12/14/20 21:31 DC 12/14/20 20:25 Divalproex Sodium (Depakote Sprinkles) 250 mg QHS PO 12/15/20 21:00 12/17/20 20:30 Cephalexin HCl (Keflex) 250 mg TID PO 12/16/20 14:00 12/17/20 20:30 I have reviewed the current psychotropics carefully including drug interactions. Risk benefit ratio favors no change other than as noted in my dictated progress note. 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
[2020-12-18 05:47] VITALS: BP 103/72
[2020-12-18] MEDS: LACTOBACILLUS RHAMNOSUS GG 1 CAPSULE. PO SCH (08:26)
[2020-12-18] MEDS: MULTIVITAMIN with MINERAL TABLET. PO SCH (08:26)
[2020-12-18] MEDS: CEPHALEXIN 250 MG CAPSULE PO SCH ×3 (08:26→20:04)
[2020-12-18] MEDS: ASPIRIN ENTERIC COATED 81 MG TABLET.DR. PO SCH (08:26)
[2020-12-18 16:11] VITALS: BP 110/77
[2020-12-18] MEDS: DIVALPROEX 125 MG CAP.SPRINK PO SCH (20:04)
[2020-12-18] MEDS: MELATONIN 3 MG TABLET PO SCH (20:05)
--- NOTE | 2020-12-18 22:44 | PDOC ---
Exam Note: Papo Note: Please also refer to the separate dictated note~for this date of service dictated separately.~Patient seen individually. Discussed the patient with Nursing staff reviewed the chart.~Reviewed interim history and current functioning. Reviewed vital signs,~Labs/ Radiology~and current medications noted below. Continue current treatment with the changes noted in the dictated addendum note Assessment: Vital Signs/I&O: Vital Signs Date Time Temp Pulse Resp B/P (MAP) Pulse Ox O2 Delivery O2 Flow Rate FiO2 12/18/20 16:11 97.6 86 18 110/77 (88) 96 Room Air I & O 12/17/20 12/17/20 12/18/20 15:00 23:00 07:00 Intake Total 240 ml 360 ml Balance 240 ml 360 ml Current Medications: Meds: Current Medications Medications (Trade) Dose Ordered Sig/Brandy Route PRN Reason Start Time Stop Time Status Last Admin Dose Admin Acetaminophen (Tylenol) 650 mg PRN Q6HRS PRN PO MILD PAIN / TEMP > 100.3'F 12/03/20 22:15 12/15/20 08:15 Multi-Ingredient Ointment (Analgesic [place]) 1 william PRN QID PRN TP MUSCLE PAIN 12/03/20 22:15 Al Hydroxide/Mg Hydroxide (Mylanta Plus Xs) 15 ml PRN AFTMEALHC PRN PO DYSPEPSIA 12/03/20 22:15 Magnesium Hydroxide (Milk Of Magnesia) 2,400 mg PRN QHS PRN PO CONSTIPATION 12/03/20 22:15 Aspirin (Aspirin Enteric Coated) 81 mg DAILY PO 12/04/20 09:00 12/18/20 08:26 Divalproex Sodium (Depakote Sprinkles) 125 mg BID PO 12/03/20 23:00 12/05/20 13:49 DC 12/05/20 09:41 Donepezil HCl (Aricept) 10 mg HS PO 12/03/20 23:00 12/09/20 18:27 DC 12/08/20 20:31 Lorazepam (Ativan) 0.5 mg BID PO 12/03/20 23:00 12/07/20 16:20 DC 12/07/20 08:27 Lorazepam (Ativan) 0.5 mg PRN Q6HRS PRN PO ANXIETY / AGITATION 12/03/20 22:30 12/06/20 17:03 Memantine (Namenda) 10 mg BID PO 12/03/20 23:00 12/09/20 18:27 DC 12/09/20 08:43 Memantine (Namenda) 10 mg BID PO 12/04/20 09:00 UNV Trazodone HCl (Desyrel) 50 mg HS PO 12/03/20 23:00 12/08/20 18:32 DC 12/07/20 19:57 Non-Formulary Medication (Acetaminophen Er ) 650 mg HS PRN PO FEVER/PAIN 12/03/20 22:15 UNV Vitamin D (Vitamin D3) 50,000 unit WEEKLY PO 12/10/20 09:00 12/17/20 08:29 Fluvoxamine Maleate (Luvox) 75 mg DAILY PO 12/04/20 09:00 12/05/20 18:55 DC 12/05/20 09:41 Lactobacillus Rhamnosus (Culturelle) 1 cap DAILY PO 12/04/20 09:00 12/18/20 08:26 Cetirizine HCl (ZyrTEC) 10 mg PRN DAILY PRN PO ALLERGIES 12/03/20 22:45 Melatonin (Melatonin) 4.5 mg HS PO 12/03/20 23:00 12/18/20 20:05 Multivitamins/ Calcium (Thera-M Plus) 1 tab DAILY PO 12/04/20 09:00 12/18/20 08:26 Divalproex Sodium (Depakote Sprinkles) 125 mg 0900,1300,1700,2100 PO 12/05/20 14:00 12/12/20 15:15 DC 12/12/20 12:14 Fluvoxamine Maleate (Luvox) 100 mg DAILY PO 12/06/20 09:00 12/11/20 17:12 DC 12/11/20 08:37 Lorazepam (Ativan) 0.25 mg BID PO 12/07/20 21:00 12/11/20 23:50 DC 12/11/20 20:46 Lorazepam (Ativan) 0.25 mg DAILY PO 12/12/20 09:00 12/16/20 16:00 DC 12/16/20 09:03 Trazodone HCl (Desyrel) 50 mg PRN QHS PRN PO INSOMNIA 12/08/20 18:30 Fluvoxamine Maleate (Luvox) 125 mg DAILY PO 12/12/20 09:00 12/18/20 08:26 Divalproex Sodium (Depakote Sprinkles) 125 mg DAILY PO 12/13/20 09:00 12/14/20 21:31 DC 12/14/20 11:57 Divalproex Sodium (Depakote Sprinkles) 250 mg QHS ONCE PO 12/12/20 21:00 12/12/20 21:01 DC 12/12/20 20:22 Divalproex Sodium (Depakote Sprinkles) 375 mg QHS PO 12/13/20 21:00 12/14/20 21:31 DC 12/14/20 20:25 Divalproex Sodium (Depakote Sprinkles) 250 mg QHS PO 12/15/20 21:00 12/18/20 20:04 Cephalexin HCl (Keflex) 250 mg TID PO 12/16/20 14:00 12/24/20 12:00 12/18/20 20:04 I have reviewed the current psychotropics carefully including drug interactions. Risk benefit ratio favors no change other than as noted in my dictated progress note. Diagnosis: Problems: (1) Dementia, vascular, with depression (2) Dementia, vascular, with delusions (3) Dementia in Alzheimer's disease with depression (4) Dementia in Alzheimer's disease with delusions (5) Major neurocognitive disorder (6) Dementia in Nida's disease with behavioral disturbance (7) Impulse control disorder, unspecified (8) Anxiety disorder, unspecified DIONICIO RENEE MD Dec 18, 2020 22:44
[2020-12-19 06:12] VITALS: BP 110/77
[2020-12-19 07:00] LABS: BASO # 0.1 x10^3/uL (0.0-0.2); BASO % 1 % (0-3); EOS # 0.2 x10^3/uL (0.0-0.7); EOS % 3 % (0-3); HEMATOCRIT 43.5 % (36.0-47.0); HEMOGLOBIN 14.7 g/dL (12.0-15.5); LYMPH # 0.9 x10^3/uL (1.0-4.8); LYMPH % 12 % (24-48); MEAN CORPUSCULAR HEMOGLOBIN 30 pg (25-35); MEAN CORPUSCULAR HGB CONC 34 g/dL (31-37); MEAN CORPUSCULAR VOLUME 88 fL (79-100); MONO # 0.8 x10^3/uL (0.0-1.1); MONO % 11 % (0-9); NEUT # 5.5 x10^3uL (1.8-7.7); NEUT % 74 % (31-73); PLATELET COUNT 224 x10^3/uL (140-400); RED BLOOD COUNT 4.92 x10^6/uL (3.50-5.40); RED CELL DISTRIBUTION WIDTH 14.5 % (11.5-14.5); WHITE BLOOD COUNT 7.4 x10^3/uL (4.0-11.0)
[2020-12-19 07:03] LABS: ALBUMIN 3.6 g/dL (3.4-5.0); ALBUMIN/GLOBULIN RATIO 0.8 (1.0-1.7); ALK PHOS 157 U/L (46-116); ALT (SGPT) 27 U/L (14-59); ANION GAP 10 (6-14); AST (SGOT) 20 U/L (15-37); BLOOD UREA NITROGEN 13 mg/dL (7-20); BUN/CREATININE RATIO 14 (6-20); CALCIUM 9.2 mg/dL (8.5-10.1); CARBON DIOXIDE 27 mmol/L (21-32); CHLORIDE 107 mmol/L (98-107); CREATININE 0.9 mg/dL (0.6-1.0); GFR 61.7; GLUCOSE 86 mg/dL (70-99); POTASSIUM 3.9 mmol/L (3.5-5.1); SODIUM 144 mmol/L (136-145); TOTAL BILIRUBIN 0.4 mg/dL (0.2-1.0); TOTAL PROTEIN 7.9 g/dL (6.4-8.2)
[2020-12-19 07:29] LABS: VAL ACID 41 mcg/mL (50-100)
[2020-12-19] MEDS: LACTOBACILLUS RHAMNOSUS GG 1 CAPSULE. PO SCH (08:29)
[2020-12-19] MEDS: MULTIVITAMIN with MINERAL TABLET. PO SCH (08:29)
[2020-12-19] MEDS: ASPIRIN ENTERIC COATED 81 MG TABLET.DR. PO SCH (08:29)
[2020-12-19] MEDS: CEPHALEXIN 250 MG CAPSULE PO SCH ×3 (08:29→20:50)
--- NOTE | 2020-12-19 09:15 | PDOC ---
Exam Note: Papo Note: This note is a late entry for 12/17/2020 covers elements not covered in my initial note. Subjective: The patient was seen on telehealth rounds in the afternoon of 12/17/2020 with the nursing staff taking the telehealth camera to each patient, which was on a secure portal, discussed and reviewed the chart with Olivia NICOLE. The patient slept 7-1/2 hours previous night. She has been more awake, wandering, walking up and down the hallway. Oral intake is poor. Staff is encouraging oral intake. Review of Systems: No CV, , pulmonary, eye, ENT system symptoms on review. Reliability poor. Mental Status Exam: The patient is oriented to herself. Insight and judgment, recent and remote memory, attention and concentration, and fund of knowledge is poor consistent with her diagnoses. Laboratory Data: Reviewed. Impression: Major neurocognitive disorder Alzheimer vascular with delusion, depression, behavioral disturbance. Anxiety disorder unspecified. Impulse control disorder unspecified. Plan: The patient is on Keflex for her UTI. We have reduced the Depakote and she has done well with this with improved wakefulness which is partly due to the reduction of Depakote but certainly also due to the treatment of UTI. We will maintain rest of the psychotropics unchanged. Assessment: Vital Signs/I&O: Vital Signs Date Time Temp Pulse Resp B/P (MAP) Pulse Ox O2 Delivery O2 Flow Rate FiO2 12/19/20 06:12 96.8 64 16 110/77 (88) 96 Room Air I & O 12/18/20 12/18/20 12/19/20 15:00 23:00 07:00 Intake Total 480 ml 720 ml Balance 480 ml 720 ml Labs: Laboratory Tests Test 12/19/20 06:20 White Blood Count 7.4 x10^3/uL (4.0-11.0) Red Blood Count 4.92 x10^6/uL (3.50-5.40) Hemoglobin 14.7 g/dL (12.0-15.5) Hematocrit 43.5 % (36.0-47.0) Mean Corpuscular Volume 88 fL (79-100) Mean Corpuscular Hemoglobin 30 pg (25-35) Mean Corpuscular Hemoglobin Concent 34 g/dL (31-37) Red Cell Distribution Width 14.5 % (11.5-14.5) Platelet Count 224 x10^3/uL (140-400) Neutrophils (%) (Auto) 74 % (31-73) H Lymphocytes (%) (Auto) 12 % (24-48) L Monocytes (%) (Auto) 11 % (0-9) H Eosinophils (%) (Auto) 3 % (0-3) Basophils (%) (Auto) 1 % (0-3) Neutrophils # (Auto) 5.5 x10^3uL (1.8-7.7) Lymphocytes # (Auto) 0.9 x10^3/uL (1.0-4.8) L Monocytes # (Auto) 0.8 x10^3/uL (0.0-1.1) Eosinophils # (Auto) 0.2 x10^3/uL (0.0-0.7) Basophils # (Auto) 0.1 x10^3/uL (0.0-0.2) Sodium Level 144 mmol/L (136-145) Potassium Level 3.9 mmol/L (3.5-5.1) Chloride Level 107 mmol/L (98-107) Carbon Dioxide Level 27 mmol/L (21-32) Anion Gap 10 (6-14) Blood Urea Nitrogen 13 mg/dL (7-20) Creatinine 0.9 mg/dL (0.6-1.0) Estimated GFR (Cockcroft-Gault) 61.7 BUN/Creatinine Ratio 14 (6-20) Glucose Level 86 mg/dL (70-99) Calcium Level 9.2 mg/dL (8.5-10.1) Total Bilirubin 0.4 mg/dL (0.2-1.0) Aspartate Amino Transferase (AST) 20 U/L (15-37) Alanine Aminotransferase (ALT) 27 U/L (14-59) Alkaline Phosphatase 157 U/L (46-116) H Total Protein 7.9 g/dL (6.4-8.2) Albumin 3.6 g/dL (3.4-5.0) Albumin/Globulin Ratio 0.8 (1.0-1.7) L Valproic Acid Level 41 mcg/mL (50-100) L Valproic Acid Last Dose Date 12/18/20 Valproic Acid Last Dose Time 2100 Current Medications: Meds: Laboratory Tests Test 12/19/20 06:20 White Blood Count 7.4 x10^3/uL Red Blood Count 4.92 x10^6/uL Hemoglobin 14.7 g/dL Hematocrit 43.5 % Mean Corpuscular Volume 88 fL Mean Corpuscular Hemoglobin 30 pg Mean Corpuscular Hemoglobin Concent 34 g/dL Red Cell Distribution Width 14.5 % Platelet Count 224 x10^3/uL Neutrophils (%) (Auto) 74 % Lymphocytes (%) (Auto) 12 % Monocytes (%) (Auto) 11 % Eosinophils (%) (Auto) 3 % Basophils (%) (Auto) 1 % Neutrophils # (Auto) 5.5 x10^3uL Lymphocytes # (Auto) 0.9 x10^3/uL Monocytes # (Auto) 0.8 x10^3/uL Eosinophils # (Auto) 0.2 x10^3/uL Basophils # (Auto) 0.1 x10^3/uL Sodium Level 144 mmol/L Potassium Level 3.9 mmol/L Chloride Level 107 mmol/L Carbon Dioxide Level 27 mmol/L Anion Gap 10 Blood Urea Nitrogen 13 mg/dL Creatinine 0.9 mg/dL Estimated GFR (Cockcroft-Gault) 61.7 BUN/Creatinine Ratio 14 Glucose Level 86 mg/dL Calcium Level 9.2 mg/dL Total Bilirubin 0.4 mg/dL Aspartate Amino Transf (AST/SGOT) 20 U/L Alanine Aminotransferase (ALT/SGPT) 27 U/L Alkaline Phosphatase 157 U/L Total Protein 7.9 g/dL Albumin 3.6 g/dL Albumin/Globulin Ratio 0.8 Valproic Acid (Depakene) Level 41 mcg/mL Valproic Acid Last Dose Date 12/18/20 Valproic Acid Last Dose Time 2100 Current Medications Medications (Trade) Dose Ordered Sig/Brandy Route PRN Reason Start Time Stop Time Status Last Admin Dose Admin Acetaminophen (Tylenol) 650 mg PRN Q6HRS PRN PO MILD PAIN / TEMP > 100.3'F 12/03/20 22:15 12/15/20 08:15 Multi-Ingredient Ointment (Analgesic [place]) 1 william PRN QID PRN TP MUSCLE PAIN 12/03/20 22:15 Al Hydroxide/Mg Hydroxide (Mylanta Plus Xs) 15 ml PRN AFTMEALHC PRN PO DYSPEPSIA 12/03/20 22:15 Magnesium Hydroxide (Milk Of Magnesia) 2,400 mg PRN QHS PRN PO CONSTIPATION 12/03/20 22:15 Aspirin (Aspirin Enteric Coated) 81 mg DAILY PO 12/04/20 09:00 12/19/20 08:29 Divalproex Sodium (Depakote Sprinkles) 125 mg BID PO 12/03/20 23:00 12/05/20 13:49 DC 12/05/20 09:41 Donepezil HCl (Aricept) 10 mg HS PO 12/03/20 23:00 12/09/20 18:27 DC 12/08/20 20:31 Lorazepam (Ativan) 0.5 mg BID PO 12/03/20 23:00 12/07/20 16:20 DC 12/07/20 08:27 Lorazepam (Ativan) 0.5 mg PRN Q6HRS PRN PO ANXIETY / AGITATION 12/03/20 22:30 12/06/20 17:03 Memantine (Namenda) 10 mg BID PO 12/03/20 23:00 12/09/20 18:27 DC 12/09/20 08:43 Memantine (Namenda) 10 mg BID PO 12/04/20 09:00 UNV Trazodone HCl (Desyrel) 50 mg HS PO 12/03/20 23:00 12/08/20 18:32 DC 12/07/20 19:57 Non-Formulary Medication (Acetaminophen Er ) 650 mg HS PRN PO FEVER/PAIN 12/03/20 22:15 UNV Vitamin D (Vitamin D3) 50,000 unit WEEKLY PO 12/10/20 09:00 12/17/20 08:29 Fluvoxamine Maleate (Luvox) 75 mg DAILY PO 12/04/20 09:00 12/05/20 18:55 DC 12/05/20 09:41 Lactobacillus Rhamnosus (Culturelle) 1 cap DAILY PO 12/04/20 09:00 12/19/20 08:29 Cetirizine HCl (ZyrTEC) 10 mg PRN DAILY PRN PO ALLERGIES 12/03/20 22:45 Melatonin (Melatonin) 4.5 mg HS PO 12/03/20 23:00 12/18/20 20:05 Multivitamins/ Calcium (Thera-M Plus) 1 tab DAILY PO 12/04/20 09:00 12/19/20 08:29 Divalproex Sodium (Depakote Sprinkles) 125 mg 0900,1300,1700,2100 PO 12/05/20 14:00 12/12/20 15:15 DC 12/12/20 12:14 Fluvoxamine Maleate (Luvox) 100 mg DAILY PO 12/06/20 09:00 12/11/20 17:12 DC 12/11/20 08:37 Lorazepam (Ativan) 0.25 mg BID PO 12/07/20 21:00 12/11/20 23:50 DC 12/11/20 20:46 Lorazepam (Ativan) 0.25 mg DAILY PO 12/12/20 09:00 12/16/20 16:00 DC 12/16/20 09:03 Trazodone HCl (Desyrel) 50 mg PRN QHS PRN PO INSOMNIA 12/08/20 18:30 Fluvoxamine Maleate (Luvox) 125 mg DAILY PO 12/12/20 09:00 12/19/20 08:29 Divalproex Sodium (Depakote Sprinkles) 125 mg DAILY PO 12/13/20 09:00 12/14/20 21:31 DC 12/14/20 11:57 Divalproex Sodium (Depakote Sprinkles) 250 mg QHS ONCE PO 12/12/20 21:00 12/12/20 21:01 DC 12/12/20 20:22 Divalproex Sodium (Depakote Sprinkles) 375 mg QHS PO 12/13/20 21:00 12/14/20 21:31 DC 12/14/20 20:25 Divalproex Sodium (Depakote Sprinkles) 250 mg QHS PO 12/15/20 21:00 12/18/20 20:04 Cephalexin HCl (Keflex) 250 mg TID PO 12/16/20 14:00 12/24/20 12:00 12/19/20 08:29 I have reviewed the current psychotropics carefully including drug interactions. Risk benefit ratio favors no change other than as noted in my dictated progress note. Diagnosis: Problems: (1) Dementia, vascular, with depression (2) Dementia, vascular, with delusions (3) Dementia in Alzheimer's disease with depression (4) Dementia in Alzheimer's disease with delusions (5) Major neurocognitive disorder (6) Dementia in Wright's disease with behavioral disturbance (7) Impulse control disorder, unspecified (8) Anxiety disorder, unspecified DIONICIO RENEE MD Dec 19, 2020 09:15
--- NOTE | 2020-12-19 09:56 | TX PLAN ---
Interdisciplinary Tx Plan Admission Information Dec 03, 2020 at 22:01 Legal Status (on Admission): Voluntary DPOA/Guardian Name: Tawanna Gallegos Contact Other Contact Name: [facility] Other Contact Allergies: Coded Allergies: No Known Drug Allergies (Unverified , 12/03/20) Diagnoses Primary Diagnosis: Major Neurocognitive D/O, vascular Alzheimer's with delusions, depression and BD. Reasons for Admission: Relation/conflict, Agitated, Combative, Confusion/Disoriented, Poor impulse control, Other Problem in Patient's Words: She's had a pretty rapid decline and concerned it had to do with her fall in September and the moves from units. Additional Admission Comments: According to the intake, pt is combative, hitting, unprovoked periods of agitation, talks about "the children", restless, wandering. Problems Active Problems: agitation wandering restless Inactive Problems: medication compliance Pt Strengths/Limitations Ability for Amorita: Poor Cognitive Functioning/Ability: Fair Communication Skills/Ability: Fair Financial Resources: Good Insight/Judgement: Poor Intellectual Ability: Fair Physical Health: Fair Social Skills: Poor Stability in Family: Excellent Stability in School/Work: Poor Verbal Skills: Fair Discharge Criteria Discharge Criteria: No need for close observ., Adequate arrangements @DC, Improved behavior, Improved mood/thought Preliminary Discharge Plan Preliminary DC Plan: Current Living Arrange. Special Precautions Fall Risk: Moderate Initial D/C Plan Pt to return to [facility] once stable. Identified Discharge Needs: Referral for continued psychiatric services Currently Utilized Resources Currently Utilized Resources/P: Primary Care Physician Identified Problems/Hx/Goals Objectives/Short-Term Goals Short Term Goals: Dec. Aggression, Dec. Outbursts, Medication Stabilization, Monitor Med Effects, Promote Coping Skill Short Term Goals in Patient's: n/a Interventions/Frequency Staff Interventions/Frequency&: Psychiatrist to assess pt at least 3x per week for medication management. Social work to assess pt at least 2x per week to identify barriers to care and discharge planning. Nursing to monitor medication effects, behavior modification and completion of 15 minute checks daily. Encourage participation in group activities (if applicable) or 1:1 engagement based off activity dept goals. 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 Pt had to retire early as she started to show the signs and have symptoms of Dementia. Education: Pt graduated the 12th grade. In her 40's pt decided to return to school and received her B.A in Human Resources. 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 Pt is eating roughly 50-75% of meals and sleeping on average 8 hours per night. Pt is up walking around the unit and interacting well with peers. Pt participated in a couple groups with moderate participation and dancing with encouragement. Pt is on an antibiotic for her UTI and is doing well on her Depakote. Pt dtr is requesting that the hospitalist call her re: the UTI. Pt may discharge to [facility] tomorrow based off insurance review. SW will continue to work with pt family and [facility] to make all arrangements. CAT HATCH Dec 19, 2020 09:56
[2020-12-19 16:30] VITALS: BP 106/79
[2020-12-19] MEDS: DIVALPROEX 125 MG CAP.SPRINK PO SCH (20:50)
[2020-12-19] MEDS: MELATONIN 3 MG TABLET PO SCH (20:50)
--- NOTE | 2020-12-19 22:06 | PDOC ---
Exam Note: Papo Note: Please also refer to the separate dictated note~for this date of service dictated separately.~Patient seen individually. Discussed the patient with Nursing staff reviewed the chart.~Reviewed interim history and current functioning. Reviewed vital signs,~Labs/ Radiology~and current medications noted below. Continue current treatment with the changes noted in the dictated addendum note Assessment: Vital Signs/I&O: Vital Signs Date Time Temp Pulse Resp B/P (MAP) Pulse Ox O2 Delivery O2 Flow Rate FiO2 12/19/20 16:30 97.6 83 16 106/79 (88) 95 Room Air I & O 12/18/20 12/18/20 12/19/20 15:00 23:00 07:00 Intake Total 480 ml 720 ml Balance 480 ml 720 ml Labs: Laboratory Tests Test 12/19/20 06:20 White Blood Count 7.4 x10^3/uL (4.0-11.0) Red Blood Count 4.92 x10^6/uL (3.50-5.40) Hemoglobin 14.7 g/dL (12.0-15.5) Hematocrit 43.5 % (36.0-47.0) Mean Corpuscular Volume 88 fL (79-100) Mean Corpuscular Hemoglobin 30 pg (25-35) Mean Corpuscular Hemoglobin Concent 34 g/dL (31-37) Red Cell Distribution Width 14.5 % (11.5-14.5) Platelet Count 224 x10^3/uL (140-400) Neutrophils (%) (Auto) 74 % (31-73) H Lymphocytes (%) (Auto) 12 % (24-48) L Monocytes (%) (Auto) 11 % (0-9) H Eosinophils (%) (Auto) 3 % (0-3) Basophils (%) (Auto) 1 % (0-3) Neutrophils # (Auto) 5.5 x10^3uL (1.8-7.7) Lymphocytes # (Auto) 0.9 x10^3/uL (1.0-4.8) L Monocytes # (Auto) 0.8 x10^3/uL (0.0-1.1) Eosinophils # (Auto) 0.2 x10^3/uL (0.0-0.7) Basophils # (Auto) 0.1 x10^3/uL (0.0-0.2) Sodium Level 144 mmol/L (136-145) Potassium Level 3.9 mmol/L (3.5-5.1) Chloride Level 107 mmol/L (98-107) Carbon Dioxide Level 27 mmol/L (21-32) Anion Gap 10 (6-14) Blood Urea Nitrogen 13 mg/dL (7-20) Creatinine 0.9 mg/dL (0.6-1.0) Estimated GFR (Cockcroft-Gault) 61.7 BUN/Creatinine Ratio 14 (6-20) Glucose Level 86 mg/dL (70-99) Calcium Level 9.2 mg/dL (8.5-10.1) Total Bilirubin 0.4 mg/dL (0.2-1.0) Aspartate Amino Transferase (AST) 20 U/L (15-37) Alanine Aminotransferase (ALT) 27 U/L (14-59) Alkaline Phosphatase 157 U/L (46-116) H Total Protein 7.9 g/dL (6.4-8.2) Albumin 3.6 g/dL (3.4-5.0) Albumin/Globulin Ratio 0.8 (1.0-1.7) L Valproic Acid Level 41 mcg/mL (50-100) L Valproic Acid Last Dose Date 12/18/20 Valproic Acid Last Dose Time 2100 Current Medications: Meds: Laboratory Tests Test 12/19/20 06:20 White Blood Count 7.4 x10^3/uL Red Blood Count 4.92 x10^6/uL Hemoglobin 14.7 g/dL Hematocrit 43.5 % Mean Corpuscular Volume 88 fL Mean Corpuscular Hemoglobin 30 pg Mean Corpuscular Hemoglobin Concent 34 g/dL Red Cell Distribution Width 14.5 % Platelet Count 224 x10^3/uL Neutrophils (%) (Auto) 74 % Lymphocytes (%) (Auto) 12 % Monocytes (%) (Auto) 11 % Eosinophils (%) (Auto) 3 % Basophils (%) (Auto) 1 % Neutrophils # (Auto) 5.5 x10^3uL Lymphocytes # (Auto) 0.9 x10^3/uL Monocytes # (Auto) 0.8 x10^3/uL Eosinophils # (Auto) 0.2 x10^3/uL Basophils # (Auto) 0.1 x10^3/uL Sodium Level 144 mmol/L Potassium Level 3.9 mmol/L Chloride Level 107 mmol/L Carbon Dioxide Level 27 mmol/L Anion Gap 10 Blood Urea Nitrogen 13 mg/dL Creatinine 0.9 mg/dL Estimated GFR (Cockcroft-Gault) 61.7 BUN/Creatinine Ratio 14 Glucose Level 86 mg/dL Calcium Level 9.2 mg/dL Total Bilirubin 0.4 mg/dL Aspartate Amino Transf (AST/SGOT) 20 U/L Alanine Aminotransferase (ALT/SGPT) 27 U/L Alkaline Phosphatase 157 U/L Total Protein 7.9 g/dL Albumin 3.6 g/dL Albumin/Globulin Ratio 0.8 Valproic Acid (Depakene) Level 41 mcg/mL Valproic Acid Last Dose Date 12/18/20 Valproic Acid Last Dose Time 2100 Current Medications Medications (Trade) Dose Ordered Sig/Brandy Route PRN Reason Start Time Stop Time Status Last Admin Dose Admin Acetaminophen (Tylenol) 650 mg PRN Q6HRS PRN PO MILD PAIN / TEMP > 100.3'F 12/03/20 22:15 12/15/20 08:15 Multi-Ingredient Ointment (Analgesic [place]) 1 william PRN QID PRN TP MUSCLE PAIN 12/03/20 22:15 Al Hydroxide/Mg Hydroxide (Mylanta Plus Xs) 15 ml PRN AFTMEALHC PRN PO DYSPEPSIA 12/03/20 22:15 Magnesium Hydroxide (Milk Of Magnesia) 2,400 mg PRN QHS PRN PO CONSTIPATION 12/03/20 22:15 12/19/20 20:51 Aspirin (Aspirin Enteric Coated) 81 mg DAILY PO 12/04/20 09:00 12/19/20 08:29 Divalproex Sodium (Depakote Sprinkles) 125 mg BID PO 12/03/20 23:00 12/05/20 13:49 DC 12/05/20 09:41 Donepezil HCl (Aricept) 10 mg HS PO 12/03/20 23:00 12/09/20 18:27 DC 12/08/20 20:31 Lorazepam (Ativan) 0.5 mg BID PO 12/03/20 23:00 12/07/20 16:20 DC 12/07/20 08:27 Lorazepam (Ativan) 0.5 mg PRN Q6HRS PRN PO ANXIETY / AGITATION 12/03/20 22:30 12/06/20 17:03 Memantine (Namenda) 10 mg BID PO 12/03/20 23:00 12/09/20 18:27 DC 12/09/20 08:43 Memantine (Namenda) 10 mg BID PO 12/04/20 09:00 UNV Trazodone HCl (Desyrel) 50 mg HS PO 12/03/20 23:00 12/08/20 18:32 DC 12/07/20 19:57 Non-Formulary Medication (Acetaminophen Er ) 650 mg HS PRN PO FEVER/PAIN 12/03/20 22:15 UNV Vitamin D (Vitamin D3) 50,000 unit WEEKLY PO 12/10/20 09:00 12/17/20 08:29 Fluvoxamine Maleate (Luvox) 75 mg DAILY PO 12/04/20 09:00 12/05/20 18:55 DC 12/05/20 09:41 Lactobacillus Rhamnosus (Culturelle) 1 cap DAILY PO 12/04/20 09:00 12/19/20 08:29 Cetirizine HCl (ZyrTEC) 10 mg PRN DAILY PRN PO ALLERGIES 12/03/20 22:45 Melatonin (Melatonin) 4.5 mg HS PO 12/03/20 23:00 12/19/20 20:50 Multivitamins/ Calcium (Thera-M Plus) 1 tab DAILY PO 12/04/20 09:00 12/19/20 08:29 Divalproex Sodium (Depakote Sprinkles) 125 mg 0900,1300,1700,2100 PO 12/05/20 14:00 12/12/20 15:15 DC 12/12/20 12:14 Fluvoxamine Maleate (Luvox) 100 mg DAILY PO 12/06/20 09:00 12/11/20 17:12 DC 12/11/20 08:37 Lorazepam (Ativan) 0.25 mg BID PO 12/07/20 21:00 12/11/20 23:50 DC 12/11/20 20:46 Lorazepam (Ativan) 0.25 mg DAILY PO 12/12/20 09:00 12/16/20 16:00 DC 12/16/20 09:03 Trazodone HCl (Desyrel) 50 mg PRN QHS PRN PO INSOMNIA 12/08/20 18:30 Fluvoxamine Maleate (Luvox) 125 mg DAILY PO 12/12/20 09:00 12/19/20 08:29 Divalproex Sodium (Depakote Sprinkles) 125 mg DAILY PO 12/13/20 09:00 12/14/20 21:31 DC 12/14/20 11:57 Divalproex Sodium (Depakote Sprinkles) 250 mg QHS ONCE PO 12/12/20 21:00 12/12/20 21:01 DC 12/12/20 20:22 Divalproex Sodium (Depakote Sprinkles) 375 mg QHS PO 12/13/20 21:00 12/14/20 21:31 DC 12/14/20 20:25 Divalproex Sodium (Depakote Sprinkles) 250 mg QHS PO 12/15/20 21:00 12/19/20 20:50 Cephalexin HCl (Keflex) 250 mg TID PO 12/16/20 14:00 12/24/20 12:00 12/19/20 20:50 I have reviewed the current psychotropics carefully including drug interactions. Risk benefit ratio favors no change other than as noted in my dictated progress note. Diagnosis: Problems: (1) Dementia, vascular, with depression (2) Dementia, vascular, with delusions (3) Dementia in Alzheimer's disease with depression (4) Dementia in Alzheimer's disease with delusions (5) Major neurocognitive disorder (6) Dementia in [place]'s disease with behavioral disturbance (7) Impulse control disorder, unspecified (8) Anxiety disorder, unspecified DIONICIO RENEE MD Dec 19, 2020 22:06
[2020-12-20] MEDS ORDERED: ACET325T21 PO (01:50)
[2020-12-20] MEDS ORDERED: CEPH-281 PO (01:51)
[2020-12-20] MEDS ORDERED: CHOL500021 PO (01:54)
[2020-12-20] MEDS ORDERED: DIVA125C3 PO (01:56)
[2020-12-20] MEDS ORDERED: LORA-254 PO (01:57)
[2020-12-20] MEDS ORDERED: MAGN24003 PO (01:58)
[2020-12-20] MEDS ORDERED: MAG-124 PO (01:58)
[2020-12-20] MEDS ORDERED: METH57CR17 TP (02:00)
[2020-12-20] MEDS ORDERED: MELA3TAB4 PO (02:00)
[2020-12-20] MEDS ORDERED: MULT-114 PO (02:02)
[2020-12-20] MEDS ORDERED: FLUV50TA2 PO (02:04)
[2020-12-20 05:57] VITALS: BP 116/80
[2020-12-20] MEDS: LACTOBACILLUS RHAMNOSUS GG 1 CAPSULE. PO SCH (08:18)
[2020-12-20] MEDS: ASPIRIN ENTERIC COATED 81 MG TABLET.DR. PO SCH (08:18)
[2020-12-20] MEDS: CEPHALEXIN 250 MG CAPSULE PO SCH (08:19)
[2020-12-20] MEDS: MULTIVITAMIN with MINERAL TABLET. PO SCH (08:19)
--- NOTE | 2020-12-20 22:08 | PDOC ---
Exam Note: Papo Note: This note is a late entry for 12/18/2020 covers elements not covered in my initial note. Subjective: The patient was seen on telehealth rounds in the afternoon of 12/18/2020 as an option during the COVID-19 pandemic period with Wyatt NICOLE, discussed and reviewed the chart. The patient slept 9-3/4 hours previous night. Appetite 75%. She did well previous evening. During the day on 12/18, she is wandering, confused. Review of Systems: No CV, , pulmonary, eye, ENT system symptoms on review. Reliability poor. Mental Status Exam: The patient is oriented to herself. Insight and judgment, recent and remote memory, attention and concentration, and fund of knowledge is poor consistent with her diagnoses. Laboratory Data: Reviewed. Impression: Major neurocognitive disorder Alzheimer vascular with delusion, d epression, behavioral disturbance. Anxiety disorder unspecified. Impulse control disorder unspecified. Plan: Generally the patient overall is doing better, ambulating on her own, not physically aggressive, remains confused. Continue psychotropics unchanged. Assessment: Vital Signs/I&O: Vital Signs Date Time Temp Pulse Resp B/P (MAP) Pulse Ox O2 Delivery O2 Flow Rate FiO2 12/20/20 05:57 97.4 75 18 116/80 (92) 98 Room Air I & O 12/19/20 12/19/20 12/20/20 15:00 23:00 07:00 Intake Total 480 ml 480 ml Balance 480 ml 480 ml Current Medications: Meds: Current Medications Medications (Trade) Dose Ordered Sig/Brandy Route PRN Reason Start Time Stop Time Status Last Admin Dose Admin Acetaminophen (Tylenol) 650 mg PRN Q6HRS PRN PO MILD PAIN / TEMP > 100.3'F 12/03/20 22:15 12/20/20 11:52 DC 12/15/20 08:15 Multi-Ingredient Ointment (Analgesic [place]) 1 william PRN QID PRN TP MUSCLE PAIN 12/03/20 22:15 12/20/20 11:52 DC Al Hydroxide/Mg Hydroxide (Mylanta Plus Xs) 15 ml PRN AFTMEALHC PRN PO DYSPEPSIA 12/03/20 22:15 12/20/20 11:52 DC Magnesium Hydroxide (Milk Of Magnesia) 2,400 mg PRN QHS PRN PO CONSTIPATION 12/03/20 22:15 12/20/20 11:52 DC 12/19/20 20:51 Aspirin (Aspirin Enteric Coated) 81 mg DAILY PO 12/04/20 09:00 12/20/20 11:52 DC 12/20/20 08:18 Divalproex Sodium (Depakote Sprinkles) 125 mg BID PO 12/03/20 23:00 12/05/20 13:49 DC 12/05/20 09:41 Donepezil HCl (Aricept) 10 mg HS PO 12/03/20 23:00 12/09/20 18:27 DC 12/08/20 20:31 Lorazepam (Ativan) 0.5 mg BID PO 12/03/20 23:00 12/07/20 16:20 DC 12/07/20 08:27 Lorazepam (Ativan) 0.5 mg PRN Q6HRS PRN PO ANXIETY / AGITATION 12/03/20 22:30 12/20/20 11:52 DC 12/06/20 17:03 Memantine (Namenda) 10 mg BID PO 12/03/20 23:00 12/09/20 18:27 DC 12/09/20 08:43 Memantine (Namenda) 10 mg BID PO 12/04/20 09:00 UNV Trazodone HCl (Desyrel) 50 mg HS PO 12/03/20 23:00 12/08/20 18:32 DC 12/07/20 19:57 Non-Formulary Medication (Acetaminophen Er ) 650 mg HS PRN PO FEVER/PAIN 12/03/20 22:15 UNV Vitamin D (Vitamin D3) 50,000 unit WEEKLY PO 12/10/20 09:00 12/20/20 11:52 DC 12/17/20 08:29 Fluvoxamine Maleate (Luvox) 75 mg DAILY PO 12/04/20 09:00 12/05/20 18:55 DC 12/05/20 09:41 Lactobacillus Rhamnosus (Culturelle) 1 cap DAILY PO 12/04/20 09:00 12/20/20 11:52 DC 12/20/20 08:18 Cetirizine HCl (ZyrTEC) 10 mg PRN DAILY PRN PO ALLERGIES 12/03/20 22:45 12/20/20 11:52 DC Melatonin (Melatonin) 4.5 mg HS PO 12/03/20 23:00 12/20/20 11:52 DC 12/19/20 20:50 Multivitamins/ Calcium (Thera-M Plus) 1 tab DAILY PO 12/04/20 09:00 12/20/20 11:52 DC 12/20/20 08:19 Divalproex Sodium (Depakote Sprinkles) 125 mg 0900,1300,1700,2100 PO 12/05/20 14:00 12/12/20 15:15 DC 12/12/20 12:14 Fluvoxamine Maleate (Luvox) 100 mg DAILY PO 12/06/20 09:00 12/11/20 17:12 DC 12/11/20 08:37 Lorazepam (Ativan) 0.25 mg BID PO 12/07/20 21:00 12/11/20 23:50 DC 12/11/20 20:46 Lorazepam (Ativan) 0.25 mg DAILY PO 12/12/20 09:00 12/16/20 16:00 DC 12/16/20 09:03 Trazodone HCl (Desyrel) 50 mg PRN QHS PRN PO INSOMNIA 12/08/20 18:30 12/20/20 11:52 DC Fluvoxamine Maleate (Luvox) 125 mg DAILY PO 12/12/20 09:00 12/20/20 11:52 DC 12/20/20 08:18 Divalproex Sodium (Depakote Sprinkles) 125 mg DAILY PO 12/13/20 09:00 12/14/20 21:31 DC 12/14/20 11:57 Divalproex Sodium (Depakote Sprinkles) 250 mg QHS ONCE PO 12/12/20 21:00 12/12/20 21:01 DC 12/12/20 20:22 Divalproex Sodium (Depakote Sprinkles) 375 mg QHS PO 12/13/20 21:00 12/14/20 21:31 DC 12/14/20 20:25 Divalproex Sodium (Depakote Sprinkles) 250 mg QHS PO 12/15/20 21:00 12/20/20 11:52 DC 12/19/20 20:50 Cephalexin HCl (Keflex) 250 mg TID PO 12/16/20 14:00 12/20/20 11:52 DC 12/20/20 08:19 I have reviewed the current psychotropics carefully including drug interactions. Risk benefit ratio favors no change other than as noted in my dictated progress note. Diagnosis: Problems: (1) Dementia, vascular, with depression (2) Dementia, vascular, with delusions (3) Dementia in Alzheimer's disease with depression (4) Dementia in Alzheimer's disease with delusions (5) Major neurocognitive disorder (6) Dementia in [place]'s disease with behavioral disturbance (7) Impulse control disorder, unspecified (8) Anxiety disorder, unspecified DIONICIO RENEE MD Dec 20, 2020 22:08
--- NOTE | 2020-12-20 22:32 | PDOC ---
Exam Note: Papo Note: This note is a late entry for 12/19/2020 covers elements not covered in my initial note. Subjective: The patient was reviewed on telehealth rounds in the morning of 12/19/2020 as an option during the COVID-19 pandemic period for a treatment team meeting with Leonela Blake, Geeta Tolbert (social media editor), Dasha, activity therapy and Wyatt RN, discussed and reviewed the chart. We discussed the patients diagnoses, progress, current psychotropics, reviewed drug interactions, risk-benefit ratio of current psychotropics. Her daughter Elisabet attended the meeting. The patient slept 7-1/4 hours previous night. She has had somewhat poor appetite, otherwise, ambulating better. Review of Systems: No CV, , pulmonary, eye, ENT system symptoms on review. Reliability poor. Mental Status Exam: The patient is oriented to herself. Insight and judgment, recent and remote memory, attention and concentration, and fund of knowledge is poor consistent with her diagnoses. Laboratory Data: Reviewed. Impression: Major neurocognitive disorder Alzheimer vascular with delusion, depression, behavioral disturbance. Anxiety disorder unspecified. Impulse control disorder unspecified. Plan: Continue current psychotropics. Make further adjustments as clinically indicated. Assessment: Vital Signs/I&O: Vital Signs Date Time Temp Pulse Resp B/P (MAP) Pulse Ox O2 Delivery O2 Flow Rate FiO2 12/20/20 05:57 97.4 75 18 116/80 (92) 98 Room Air I & O 12/19/20 12/19/20 12/20/20 15:00 23:00 07:00 Intake Total 480 ml 480 ml Balance 480 ml 480 ml Current Medications: Meds: Current Medications Medications (Trade) Dose Ordered Sig/Brandy Route PRN Reason Start Time Stop Time Status Last Admin Dose Admin Acetaminophen (Tylenol) 650 mg PRN Q6HRS PRN PO MILD PAIN / TEMP > 100.3'F 12/03/20 22:15 12/20/20 11:52 DC 12/15/20 08:15 Multi-Ingredient Ointment (Analgesic [place]) 1 william PRN QID PRN TP MUSCLE PAIN 12/03/20 22:15 12/20/20 11:52 DC Al Hydroxide/Mg Hydroxide (Mylanta Plus Xs) 15 ml PRN AFTMEALHC PRN PO DYSPEPSIA 12/03/20 22:15 12/20/20 11:52 DC Magnesium Hydroxide (Milk Of Magnesia) 2,400 mg PRN QHS PRN PO CONSTIPATION 12/03/20 22:15 12/20/20 11:52 DC 12/19/20 20:51 Aspirin (Aspirin Enteric Coated) 81 mg DAILY PO 12/04/20 09:00 12/20/20 11:52 DC 12/20/20 08:18 Divalproex Sodium (Depakote Sprinkles) 125 mg BID PO 12/03/20 23:00 12/05/20 13:49 DC 12/05/20 09:41 Donepezil HCl (Aricept) 10 mg HS PO 12/03/20 23:00 12/09/20 18:27 DC 12/08/20 20:31 Lorazepam (Ativan) 0.5 mg BID PO 12/03/20 23:00 12/07/20 16:20 DC 12/07/20 08:27 Lorazepam (Ativan) 0.5 mg PRN Q6HRS PRN PO ANXIETY / AGITATION 12/03/20 22:30 12/20/20 11:52 DC 12/06/20 17:03 Memantine (Namenda) 10 mg BID PO 12/03/20 23:00 12/09/20 18:27 DC 12/09/20 08:43 Memantine (Namenda) 10 mg BID PO 12/04/20 09:00 UNV Trazodone HCl (Desyrel) 50 mg HS PO 12/03/20 23:00 12/08/20 18:32 DC 12/07/20 19:57 Non-Formulary Medication (Acetaminophen Er ) 650 mg HS PRN PO FEVER/PAIN 12/03/20 22:15 UNV Vitamin D (Vitamin D3) 50,000 unit WEEKLY PO 12/10/20 09:00 12/20/20 11:52 DC 12/17/20 08:29 Fluvoxamine Maleate (Luvox) 75 mg DAILY PO 12/04/20 09:00 12/05/20 18:55 DC 12/05/20 09:41 Lactobacillus Rhamnosus (Culturelle) 1 cap DAILY PO 12/04/20 09:00 12/20/20 11:52 DC 12/20/20 08:18 Cetirizine HCl (ZyrTEC) 10 mg PRN DAILY PRN PO ALLERGIES 12/03/20 22:45 12/20/20 11:52 DC Melatonin (Melatonin) 4.5 mg HS PO 12/03/20 23:00 12/20/20 11:52 DC 12/19/20 20:50 Multivitamins/ Calcium (Thera-M Plus) 1 tab DAILY PO 12/04/20 09:00 12/20/20 11:52 DC 12/20/20 08:19 Divalproex Sodium (Depakote Sprinkles) 125 mg 0900,1300,1700,2100 PO 12/05/20 14:00 12/12/20 15:15 DC 12/12/20 12:14 Fluvoxamine Maleate (Luvox) 100 mg DAILY PO 12/06/20 09:00 12/11/20 17:12 DC 12/11/20 08:37 Lorazepam (Ativan) 0.25 mg BID PO 12/07/20 21:00 12/11/20 23:50 DC 12/11/20 20:46 Lorazepam (Ativan) 0.25 mg DAILY PO 12/12/20 09:00 12/16/20 16:00 DC 12/16/20 09:03 Trazodone HCl (Desyrel) 50 mg PRN QHS PRN PO INSOMNIA 12/08/20 18:30 12/20/20 11:52 DC Fluvoxamine Maleate (Luvox) 125 mg DAILY PO 12/12/20 09:00 12/20/20 11:52 DC 12/20/20 08:18 Divalproex Sodium (Depakote Sprinkles) 125 mg DAILY PO 12/13/20 09:00 12/14/20 21:31 DC 12/14/20 11:57 Divalproex Sodium (Depakote Sprinkles) 250 mg QHS ONCE PO 12/12/20 21:00 12/12/20 21:01 DC 12/12/20 20:22 Divalproex Sodium (Depakote Sprinkles) 375 mg QHS PO 12/13/20 21:00 12/14/20 21:31 DC 12/14/20 20:25 Divalproex Sodium (Depakote Sprinkles) 250 mg QHS PO 12/15/20 21:00 12/20/20 11:52 DC 12/19/20 20:50 Cephalexin HCl (Keflex) 250 mg TID PO 12/16/20 14:00 12/20/20 11:52 DC 12/20/20 08:19 I have reviewed the current psychotropics carefully including drug interactions. Risk benefit ratio favors no change other than as noted in my dictated progress note. Diagnosis: Problems: (1) Dementia, vascular, with depression (2) Dementia, vascular, with delusions (3) Dementia in Alzheimer's disease with depression (4) Dementia in Alzheimer's disease with delusions (5) Major neurocognitive disorder (6) Dementia in [place]'s disease with behavioral disturbance (7) Impulse control disorder, unspecified (8) Anxiety disorder, unspecified DIONICIO RENEE MD Dec 20, 2020 22:32
--- NOTE | 2020-12-20 22:33 | PDOC ---
Exam Note: Papo Note: Please also refer to the separate dictated note~for this date of service dictated separately.~Patient seen individually. Discussed the patient with Nursing staff reviewed the chart.~Reviewed interim history and current functioning. Reviewed vital signs,~Labs/ Radiology~and current medications noted below. Continue current treatment with the changes noted in the dictated addendum note Assessment: Vital Signs/I&O: Vital Signs Date Time Temp Pulse Resp B/P (MAP) Pulse Ox O2 Delivery O2 Flow Rate FiO2 12/20/20 05:57 97.4 75 18 116/80 (92) 98 Room Air I & O 12/19/20 12/19/20 12/20/20 15:00 23:00 07:00 Intake Total 480 ml 480 ml Balance 480 ml 480 ml Current Medications: Meds: Current Medications Medications (Trade) Dose Ordered Sig/Brandy Route PRN Reason Start Time Stop Time Status Last Admin Dose Admin Acetaminophen (Tylenol) 650 mg PRN Q6HRS PRN PO MILD PAIN / TEMP > 100.3'F 12/03/20 22:15 12/20/20 11:52 DC 12/15/20 08:15 Multi-Ingredient Ointment (Analgesic [place]) 1 william PRN QID PRN TP MUSCLE PAIN 12/03/20 22:15 12/20/20 11:52 DC Al Hydroxide/Mg Hydroxide (Mylanta Plus Xs) 15 ml PRN AFTMEALHC PRN PO DYSPEPSIA 12/03/20 22:15 12/20/20 11:52 DC Magnesium Hydroxide (Milk Of Magnesia) 2,400 mg PRN QHS PRN PO CONSTIPATION 12/03/20 22:15 12/20/20 11:52 DC 12/19/20 20:51 Aspirin (Aspirin Enteric Coated) 81 mg DAILY PO 12/04/20 09:00 12/20/20 11:52 DC 12/20/20 08:18 Divalproex Sodium (Depakote Sprinkles) 125 mg BID PO 12/03/20 23:00 12/05/20 13:49 DC 12/05/20 09:41 Donepezil HCl (Aricept) 10 mg HS PO 12/03/20 23:00 12/09/20 18:27 DC 12/08/20 20:31 Lorazepam (Ativan) 0.5 mg BID PO 12/03/20 23:00 12/07/20 16:20 DC 12/07/20 08:27 Lorazepam (Ativan) 0.5 mg PRN Q6HRS PRN PO ANXIETY / AGITATION 12/03/20 22:30 12/20/20 11:52 DC 12/06/20 17:03 Memantine (Namenda) 10 mg BID PO 12/03/20 23:00 12/09/20 18:27 DC 12/09/20 08:43 Memantine (Namenda) 10 mg BID PO 12/04/20 09:00 UNV Trazodone HCl (Desyrel) 50 mg HS PO 12/03/20 23:00 12/08/20 18:32 DC 12/07/20 19:57 Non-Formulary Medication (Acetaminophen Er ) 650 mg HS PRN PO FEVER/PAIN 12/03/20 22:15 UNV Vitamin D (Vitamin D3) 50,000 unit WEEKLY PO 12/10/20 09:00 12/20/20 11:52 DC 12/17/20 08:29 Fluvoxamine Maleate (Luvox) 75 mg DAILY PO 12/04/20 09:00 12/05/20 18:55 DC 12/05/20 09:41 Lactobacillus Rhamnosus (Culturelle) 1 cap DAILY PO 12/04/20 09:00 12/20/20 11:52 DC 12/20/20 08:18 Cetirizine HCl (ZyrTEC) 10 mg PRN DAILY PRN PO ALLERGIES 12/03/20 22:45 12/20/20 11:52 DC Melatonin (Melatonin) 4.5 mg HS PO 12/03/20 23:00 12/20/20 11:52 DC 12/19/20 20:50 Multivitamins/ Calcium (Thera-M Plus) 1 tab DAILY PO 12/04/20 09:00 12/20/20 11:52 DC 12/20/20 08:19 Divalproex Sodium (Depakote Sprinkles) 125 mg 0900,1300,1700,2100 PO 12/05/20 14:00 12/12/20 15:15 DC 12/12/20 12:14 Fluvoxamine Maleate (Luvox) 100 mg DAILY PO 12/06/20 09:00 12/11/20 17:12 DC 12/11/20 08:37 Lorazepam (Ativan) 0.25 mg BID PO 12/07/20 21:00 12/11/20 23:50 DC 12/11/20 20:46 Lorazepam (Ativan) 0.25 mg DAILY PO 12/12/20 09:00 12/16/20 16:00 DC 12/16/20 09:03 Trazodone HCl (Desyrel) 50 mg PRN QHS PRN PO INSOMNIA 12/08/20 18:30 12/20/20 11:52 DC Fluvoxamine Maleate (Luvox) 125 mg DAILY PO 12/12/20 09:00 12/20/20 11:52 DC 12/20/20 08:18 Divalproex Sodium (Depakote Sprinkles) 125 mg DAILY PO 12/13/20 09:00 12/14/20 21:31 DC 12/14/20 11:57 Divalproex Sodium (Depakote Sprinkles) 250 mg QHS ONCE PO 12/12/20 21:00 12/12/20 21:01 DC 12/12/20 20:22 Divalproex Sodium (Depakote Sprinkles) 375 mg QHS PO 12/13/20 21:00 12/14/20 21:31 DC 12/14/20 20:25 Divalproex Sodium (Depakote Sprinkles) 250 mg QHS PO 12/15/20 21:00 12/20/20 11:52 DC 12/19/20 20:50 Cephalexin HCl (Keflex) 250 mg TID PO 12/16/20 14:00 12/20/20 11:52 DC 12/20/20 08:19 I have reviewed the current psychotropics carefully including drug interactions. Risk benefit ratio favors no change other than as noted in my dictated progress note. Diagnosis: Problems: (1) Dementia, vascular, with depression (2) Dementia, vascular, with delusions (3) Dementia in Alzheimer's disease with depression (4) Dementia in Alzheimer's disease with delusions (5) Major neurocognitive disorder (6) Dementia in [place]'s disease with behavioral disturbance (7) Impulse control disorder, unspecified (8) Anxiety disorder, unspecified DIONICIO RENEE MD Dec 20, 2020 22:33
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
== END 2020-12-20 11:45 | DRG 57 ==
LOC: ER 18:26 → GEROPSY 22:01
PROVIDERS: ADMIT Psychiatry & Neurology Psychiatry; ATTEND Psychiatry & Neurology Psychiatry
DX: G30.9 Alzheimer's disease, unspecified (principal); F01.51 Vascular dementia, unspecified severity, with behavioral disturbance; F02.81 Dementia in other diseases classified elsewhere, unspecified severity, with behavioral disturbance; G10 Huntington's disease; F32.9 Major depressive disorder, single episode, unspecified; F41.9 Anxiety disorder, unspecified; F63.9 Impulse disorder, unspecified; R32 Unspecified urinary incontinence; G47.00 Insomnia, unspecified; Z86.16 Personal history of COVID-19; Z79.899 Other long term (current) drug therapy
CPT/HCPCS: 36415; 74018; 80053; 80061; 80164; 81001; 82306; 82553; 82607; 83036; 83540; 83550; 83735; 84436; 84443; 84480; 84484; 85025; 85379; 86592; 87077; 87086; 93005; 97110; 97116; 97530; 97535; 99285-25